=== PATIENT | female | born 1950 | race Caucasian/White ===

== ENCOUNTER → 2018-10-13 14:23 | Outpatient (CLI) | payer MEDICARE, OTHER, SELFPAY ==
--- NOTE | 2018-10-13 | DI.MG.S_ITS ---
BILATERAL DIGITAL SCREENING MAMMOGRAM 3D/2D WITH CAD: 10/13/2018 CLINICAL: Routine screening. Family history of breast cancer. Comparison is made to exams dated: 09/18/2016 mammogram, 08/23/2015 mammogram, and 08/07/2014 mammogram - [facility]. The tissue of both breasts is heterogeneously dense. This may lower the sensitivity of mammography. Current study was also evaluated with a Computer Aided Detection (CAD) system. No significant masses, calcifications, or other findings are seen in either breast. There has been no significant interval change. IMPRESSION: NEGATIVE There is no mammographic evidence of malignancy. A 1 year screening mammogram is recommended. This exam was interpreted at Station ID: [id number]. NOTE: For mammograms, a report in lay terms will be sent to the patient. Approximately 15% of breast malignancies will not be visualized mammographically. In the management of a palpable breast mass, a negative mammogram must not discourage biopsy of a clinically suspicious lesion. Electronically Signed By: David rios/jose:10/13/2018 16:00:54 letter sent: Normal Exam ACR BI-RADS Category 1: Negative 3341F
== END ==
PROVIDERS: PCP Family Medicine; Visit Provider Family Medicine
DX: Z12.31 Encounter for screening mammogram for malignant neoplasm of breast (principal); Z80.3 Family history of malignant neoplasm of breast
CPT/HCPCS: 77063; 77067

== ENCOUNTER → 2018-11-09 11:28 | Outpatient (CLI) | payer MEDICARE, OTHER, SELFPAY ==
[2018-11-09 12:13] LABS: Add Manual Diff / Slide Review NO; Basophils Percent Auto 0.7 % (0-2); Hematocrit 37.8 % (36-46); Hemoglobin 12.4 g/dL (12.0-16.0); Lymphocytes Percent Auto 8.8 % (25-40); Mean Corpuscular HGB Conc 32.8 % (30-36); Mean Corpuscular Hemoglobin 31.5 PG (26-34); Mean Corpuscular Volume 96.1 fL (80-100); Monocytes Percent Auto 14.2 % (3-14); Neutrophils Absolute Auto 2900 /uL (1500-7000); Neutrophils Percent Auto 72.3 % (50-75); Platelet Count 227 X10^3/uL (150-400); Red Blood Cell Count 3.93 X10^6/uL (4.0-5.2)
[2018-11-09 12:22] LABS: Alanine Aminotransferase 26 IU/L (9-52); Albumin 4.7 g/dL (3.5-5.0); Albumin Globulin Ratio 1.7 (1.0-2.8); Alkaline Phosphatase 80 U/L (38-126); Aspartate Aminotransferase 31 IU/L (14-36); BUN Creatinine Ratio 15.8 (6-22); Bilirubin Total 0.3 mg/dL (0.2-1.3); Blood Urea Nitrogen 19 mg/dL (7-17); Calcium 9.9 mg/dL (8.4-10.2); Carbon Dioxide 25 mmol/L (22-32); Chloride 102 mmol/L (98-107); Cholesterol 199 mg/dL (140-199); Estimated Glomerular Filt Rate 44.7 mL/min (>60); Globulin 2.8 g/dL (1.7-4.1); Glucose 91 mg/dL (80-110); HDL Cholesterol 66 mg/dL (40-60); HEMOLYSIS < 15 (0-50); LDL Cholesterol Calculated 120 mg/dL (<100); Potassium 4.7 mmol/L (3.4-5.1); Sodium 138 mmol/L (137-145); Total Protein 7.5 g/dL (6.3-8.2); Triglycerides 64 mg/dL (35-150)
[2018-11-09 12:55] LABS: Thyroid Stimulating Hormone 0.11 uIU/mL (0.47-4.68)
[2018-11-11 16:51] LABS: Hep C Virus Ab w/Reflex Quant NEGATIVE s/c (NEGATIVE)
== END ==
PROVIDERS: PCP Family Medicine; Visit Provider Family Medicine
DX: G35 Multiple sclerosis (principal); E87.1 Hypo-osmolality and hyponatremia; Z11.59 Encounter for screening for other viral diseases; E78.5 Hyperlipidemia, unspecified; E07.9 Disorder of thyroid, unspecified
CPT/HCPCS: 36415; 80053; 80061; 84443; 85025; 86803

== ENCOUNTER → 2019-11-08 10:52 | Outpatient (CLI) | payer MEDICARE, OTHER, SELFPAY ==
--- NOTE | 2019-11-08 | DI.MG.S_ITS ---
BILATERAL DIGITAL SCREENING MAMMOGRAM 3D/2D WITH CAD: 11/08/2019 CLINICAL: Routine screening. Family history of breast cancer. Comparison is made to exams dated: 10/13/2018 mammogram, 09/18/2016 mammogram, and 08/23/2015 mammogram - [facility]. The tissue of both breasts is heterogeneously dense. This may lower the sensitivity of mammography. Current study was also evaluated with a Computer Aided Detection (CAD) system. No significant masses, calcifications, or other findings are seen in either breast. There has been no significant interval change. IMPRESSION: NEGATIVE There is no mammographic evidence of malignancy. A 1 year screening mammogram is recommended. This exam was interpreted at Station ID: [id number]. NOTE: For mammograms, a report in lay terms will be sent to the patient. Approximately 15% of breast malignancies will not be visualized mammographically. In the management of a palpable breast mass, a negative mammogram must not discourage biopsy of a clinically suspicious lesion. Electronically Signed By: Balwinder akins/jose:11/08/2019 19:41:36 letter sent: Normal Exam ACR BI-RADS Category 1: Negative 3341F
== END ==
PROVIDERS: PCP Student in an Organized Health Care Education/Training Program; Visit Provider Student in an Organized Health Care Education/Training Program
DX: Z12.31 Encounter for screening mammogram for malignant neoplasm of breast (principal); Z80.3 Family history of malignant neoplasm of breast
CPT/HCPCS: 77063; 77067

== ENCOUNTER → 2019-11-29 10:59 | Outpatient (CLI) | payer MEDICARE, OTHER, SELFPAY ==
[2019-11-29 11:50] LABS: Add Manual Diff / Slide Review NO; Basophils Absolute Auto 0 /uL (0-100); Basophils Percent Auto 0.7 % (0-2); Eosinophils Absolute Auto 100 /uL (0-450); Eosinophils Percent Auto 2.6 % (2-4); Hematocrit 38.1 % (36-46); Hemoglobin 12.6 g/dL (12.0-16.0); Lymphocytes Absolute Auto 400 /uL (1100-4500); Lymphocytes Percent Auto 9.5 % (25-40); Mean Corpuscular Hemoglobin 31.6 PG (26-34); Mean Corpuscular Volume 95.7 fL (80-100); Monocytes Absolute Auto 700 /uL (0-900); Monocytes Percent Auto 15.7 % (3-14); Neutrophils Absolute Auto 3100 /uL (1500-7000); Neutrophils Percent Auto 71.5 % (50-75); Platelet Count 238 X10^3/uL (150-400); Red Blood Cell Count 3.98 X10^6/uL (4.0-5.2); Red Cell Distribution Width 13.5 % (11.6-14.8); White Blood Cell Count 4.3 X10^3/uL (4.5-11.0)
[2019-11-29 12:27] LABS: Blood Urea Nitrogen 19 mg/dL (7-17); Calcium 9.8 mg/dL (8.4-10.2); Carbon Dioxide 26 mmol/L (22-32); Chloride 95 mmol/L (98-107); Cholesterol 176 mg/dL (140-199); Glucose 103 mg/dL (80-110); HDL Cholesterol 56 mg/dL (40-60); LDL Cholesterol Calculated 103 mg/dL (<100); Sodium 130 mmol/L (137-145); Triglycerides 87 mg/dL (35-150)
[2019-11-29 12:30] LABS: HEMOLYSIS 155 (0-50); Potassium 5.9 mmol/L (3.4-5.1)
[2019-11-29 12:31] LABS: Hemoglobin A1C% w Est Avg Glu 5.4 % (4.0-6.0)
[2019-11-29 13:00] LABS: Thyroid Stimulating Hormone 0.21 uIU/mL (0.47-4.68)
== END ==
PROVIDERS: Visit Provider Student in an Organized Health Care Education/Training Program
DX: E78.5 Hyperlipidemia, unspecified (principal); E07.9 Disorder of thyroid, unspecified; Z00.00 Encounter for general adult medical examination without abnormal findings
CPT/HCPCS: 36415; 80048; 80061; 83036; 84443; 85025

== ENCOUNTER 2020-04-02 11:58 | Emergency (ER) | payer MEDICARE, OTHER, SELFPAY ==
[2020-04-02 12:01] VITALS: BP 162/71; PULSE 70; RESP 14; TEMP 37; O2SAT 98
--- NOTE | 2020-04-02 12:09 | DI.RAD.S_ITS ---
PROCEDURE: XR CHEST 1V INDICATIONS: chest pain TECHNIQUE: One view of the chest was acquired. COMPARISON: [facility], , CHEST 1VW (PORTABLE), 05/14/2015, 11:03. FINDINGS: Surgical changes and devices: None. Lungs and pleura: Lungs are clear. No pleural effusions or pneumothorax. Mediastinum: Mediastinal contours appear normal. Heart size is normal. Bones and chest wall: No suspicious bony lesions. Overlying soft tissues appear unremarkable. IMPRESSION: No acute cardiopulmonary disease process. Dictated by: Marina Aburto MD, PhD on 04/02/2020 at 13:00 Approved by: Marina Aburto MD, PhD on 04/02/2020 at 13:00
[2020-04-02 12:17] VITALS: BP 162/71; PULSE 70; RESP 12; TEMP 36.7; O2SAT 98
--- NOTE | 2020-04-02 12:22 | ED.CHESTPAIN ---
HPI - Chest Pain General Chief Complaint: Chest Pain Stated Complaint: CHEST PAIN Time Seen by Provider: 04/02/20 12:00 Source: patient Mode of arrival: Ambulatory Limitations: no limitations History of Present Illness HPI narrative: 70-year-old female nonsmoker with history of hypertension and hyperlipidemia presents with about a week of epigastric pain that is worse with eating and laying flat. She does admit to some fatigue but denies any significant shortness of breath. She has no nausea, vomiting or diarrhea. She denies any unexplained diaphoresis. She denies any exertional symptoms such as worsening of pressure, heaviness or shortness of breath with exertion. She denies any radiation of her discomfort nor any history of the same. She has had no recent travel, exposure to persons under suspicion for covered nor history of cancer or blood clots MD complaint: chest pain Onset (ago): day(s) Duration: constant Onset: during rest Pain location: epigastric Severity: moderate Quality: aching Pain radiation: none Relieving factors: nothing Exacerbating factors: eating and palpation Associated symptoms: nausea Related Data On Oral Contraceptives: No Home Medications Medication Instructions Recorded Confirmed BUPROPION HCL (WELLBUTRIN XL) 300 mg PO QDAY #0 05/20/13 Multimineral/Multivitamin 1 tab PO QDAY #0 05/20/13 (THERAGRAN M ) atorvastatin [Lipitor] 10 mg PO HS #0 05/20/13 calcium carbonate-vitamin D3 500 mg PO AMCC #0 05/20/13 [Oyster Shell Calcium-Vit D3] cetirizine 10 mg PO PRN #0 05/20/13 estradiol [Estrace] 1 mg PO QDAY #0 05/20/13 fingolimod [Gilenya] 0.5 mg PO QDAY #0 05/20/13 lisinopril 10 mg PO QDAY #0 05/20/13 melatonin 6 mg PO HS #0 05/20/13 oxybutynin chloride [Ditropan XL] 5 mg PO QDAY #0 05/20/13 zolpidem 5 mg PO HSP #0 05/20/13 Allergies Allergy/AdvReac Type Severity Reaction Status Date / Time CODEINE Allergy Unknown SEVERE N/V Uncoded 02/10/18 13:08 Review of Systems Constitutional Constitutional: Denies chills, Denies fatigue, Denies fever(s), Denies frequent falls, Denies lethargy and Denies weakness Eyes Eyes: Denies change in vision, Denies eye discharge, Denies irritation and Denies loss of vision ENT Ears, Nose, Mouth, and Throat: Denies change in voice, Denies dizziness, Denies neck pain, Denies sore throat and Denies throat swelling Cardiovascular Cardiovascular: Reports chest pain, Denies irregular heart rhythm, Denies lightheadedness, Denies palpitations, Denies dyspnea, Denies dyspnea on exertion and Denies orthopnea Respiratory Respiratory: Denies cough, Denies dyspnea, Denies dyspnea on exertion and Denies wheezing Gastrointestinal Gastrointestinal: Denies abdominal pain, Denies change in bowel habits, Denies diarrhea, Denies nausea and Denies vomiting Genitourinary Genitourinary: Denies hematuria, Denies flank pain, Denies urinary incontinence and Denies urinary urgency Musculoskeletal Musculoskeletal: Denies back pain, Denies muscle weakness, Denies neck pain, Denies numbness and Denies tingling Integumentary/Breasts Skin/Breast: Denies pruritus, Denies erythema, Denies rash and Denies wounds Neurologic Neurologic: Denies behavioral changes, Denies confusion, Denies dizziness, Denies frequent falls, Denies loss of vision, Denies numbness, Denies tingling and Denies weakness Psychiatric Psychiatric: Denies anxiety, Denies behavioral changes, Denies confusion, Denies depression, Denies homicidal ideation and Denies suicidal ideation Endocrine Endocrine: Denies fatigue, Denies flushing and Denies palpitations Hematologic/Lymphatic Hematologic/Lymphatic: Denies easy bruising Allergic/Immunologic Allergic/Immunologic: Denies urticaria, Denies throat swelling and Denies wheezing Patient History Social History Smoking Status: Never smoker Exam Narrative Exam Narrative: GENERAL: [70] year old patient appears stated age. Well-nourished, well-developed patient, in mild distress. HEAD: Atraumatic. Normocephalic. EYES: Pupils equal round and reactive. Extraocular motions intact. No scleral icterus. No injection or drainage. ENT: Nose without bleeding, purulent drainage. Throat without erythema, tonsillar hypertrophy or exudate. Airway patent. NECK: Trachea midline. Non tender CARDIOVASCULAR: Regular rate and rhythm without murmurs, gallops, or rubs. RESPIRATORY: Clear to auscultation. Breath sounds equal bilaterally. No wheezes, rales, or rhonchi. GASTROINTESTINAL: Abdomen soft, mild epigastric discomfort to palpation, nondistended. EXTREMITIES: No edema or joint tenderness. BACK: Nontender without deformity or crepitance. No flank tenderness. NEURO: AOx3. SKIN: No rash or erythema of visible areas Initial Vital Signs Initial Vital Signs: Vital Signs Temperature 98.6 F 04/02/20 12:01 Pulse Rate 70 04/02/20 12:01 Respiratory Rate 14 04/02/20 12:01 Blood Pressure 162/71 H 04/02/20 12:01 Pulse Oximetry 98 04/02/20 12:01 Scores HEART Score Heart Score history: Slightly Suspicious Heart Score EKG: Normal Heart Score Age: > or = 65 years old Heart Score risk factors: 1-2 risk factors Heart Score troponin: < or = to normal limit Heart Score Total: 3 Course Orders Ordered: Discontinued Medications Aspirin (Aspirin Chew) 324 mg PO NOW ONE Stop: 04/02/20 12:10 Last Admin: 04/02/20 12:37 Dose: 324 mg Documented by: DIANA Sodium Chloride (Normal Saline 0.9%) 1,000 mls @ 150 mls/hr IV CONT DARCY Last Infusion: 04/02/20 14:41 Dose: 0 mls/hr Documented by: Admin: 04/02/20 12:36 Dose: 150 mls/hr Documented by: DIANA Consultations Consultation #1: discussion with verification lead provider for PCP. We share agreement that given presentation, timing, lack of abnormal EKG/labs this is not likely to need admission for cardiac workup but close follow up is indicated. Vital Signs Vital signs: Vital Signs - 8 hr 04/02/20 12:01 04/02/20 12:17 Temperature 98.6 F 98.1 F Pulse Rate 70 70 Respiratory Rate 14 12 Blood Pressure 162/71 H Blood Pressure [Left Arm] 162/71 H Pulse Oximetry 98 98 MDM - Chest Pain Lab Data Result diagrams: 04/02/20 12:26 04/02/20 12:26 Labs: Lab Results 04/02/20 04/02/20 04/02/20 Range/Units 12:26 12:26 12:26 WBC 4.4 L (4.5-11.0) X10^3/uL RBC 3.66 L (4.0-5.2) X10^6/uL Hgb 11.8 L (12.0-16.0) g/dL Hct 34.6 L (36-46) % MCV 94.5 (80-100) fL MCH 32.3 (26-34) PG MCHC 34.2 (30-36) % RDW 13.2 (11.6-14.8) % Plt Count 272 (150-400) X10^3/uL Neut % (Auto) 69.8 (50-75) % Lymph % (Auto) 8.8 L (25-40) % [place] % (Auto) 17.8 H (3-14) % Eos % (Auto) 3.3 (2-4) % Baso % (Auto) 0.3 (0-2) % Neut # (Auto) 3000 (8474-8523) /uL Lymph # (Auto) 400 L (4844-0930) /uL [place] # (Auto) 800 (0-900) /uL Eos # (Auto) 100 (0-450) /uL Baso # (Auto) 0 (0-100) /uL PT 11.4 (10.1-12.7) SECONDS INR 1.0 (0.9-1.3) APTT 33 (26.4-36.2) SECONDS D-Dimer < 200 (<230) ng/mL Sodium 128 L (137-145) mmol/L Potassium 4.5 (3.4-5.1) mmol/L Chloride 95 L (98-107) mmol/L Carbon Dioxide 23 (22-32) mmol/L BUN 22 H (7-17) mg/dL Creatinine 1.14 H (0.52-1.04) mg/dL Estimated GFR 47.1 L (>60) mL/min BUN/Creatinine Ratio 19.3 (6-22) Glucose 98 (80-110) mg/dL Calcium 10.1 (8.4-10.2) mg/dL Total Bilirubin 0.3 (0.2-1.3) mg/dL AST 32 (14-36) IU/L ALT 21 (<35) IU/L Alkaline Phosphatase 78 (38-126) U/L Total Creatine Kinase 108 (30-135) U/L CK-MB (CK-2) 2.36 (<2.37) ng/mL CK-MB (CK-2) Rel Index 2.2 (1.5-5.0) % Troponin I < 0.012 (0.01-0.034) ng/mL NT-Pro-B Natriuret Pep 369 H (<125) pg/mL Total Protein 7.1 (6.3-8.2) g/dL Albumin 4.5 (3.5-5.0) g/dL Globulin 2.6 (1.7-4.1) g/dL Albumin/Globulin Ratio 1.7 (1.0-2.8) Lipase 44 (23-300) U/L MDM Narrative Medical decision making narrative: Multiple causes of chest pain considered including [place], PE, pneumothorax, pneumonia, aortic dissection, and pleurisy. Patient reports no radiation, no diaphoresis, no provocation with exertion, and no vomiting. Or also, a pain much worse with eating and with lying flat raising the suspicion of a gastro during intestinal problem such as gallbladder disease, pancreatitis or GERD/PUD Patient's symptoms improved or duration of stay with above-stated therapies. Findings and discharge diagnosis discussed with patient/family followed by verbalization of understanding Return precautions discussed with patient/family whom verbalize understanding. Discharge Plan Departure Patient Disposition: Home Clinical Impression: Atypical chest pain Discharge Date/Time: 04/02/20 14:43 Instructions: DI for Atypical Chest Pain Activity Restrictions/Additional Instructions: *You have been diagnosed with [atypical chest pain] *What to do: *Take medications as directed *Follow up with your primary care provider in 2-3 days, call for an appointment. Let them know you were seen in the Emergency Department and that we ask that you be seen in follow up *Return to ER if you should have any new, worsening or concerning symptoms Prescriptions: No Action lisinopril 10 MG tablet 10 mg PO QDAY Qty: 0 RF: 0 fingolimod [Gilenya] 0.5 MG capsule 0.5 mg PO QDAY Qty: 0 RF: 0 BUPROPION HCL (WELLBUTRIN XL) 300 mg PO QDAY Qty: 0 RF: 0 atorvastatin [Lipitor] 10 MG tablet 10 mg PO HS Qty: 0 RF: 0 estradiol [Estrace] 1 MG tablet 1 mg PO QDAY Qty: 0 RF: 0 oxybutynin chloride [Ditropan XL] 5 MG tablet extended release 24hr 5 mg PO QDAY Qty: 0 RF: 0 zolpidem 5 MG tablet 5 mg PO HSP Qty: 0 RF: 0 Multimineral/Multivitamin (THERAGRAN M ) 1 tab PO QDAY Qty: 0 RF: 0 cetirizine 10 MG tablet 10 mg PO PRN Qty: 0 RF: 0 melatonin 3 MG tablet 6 mg PO HS Qty: 0 RF: 0 calcium carbonate-vitamin D3 [Oyster Shell Calcium-Vit D3] 1,250 MG/200 IU tablet 500 mg PO AMCC Qty: 0 RF: 0
[2020-04-02] MEDS: SODIUM CHLORIDE 0.9% 1,000 ML 150 ML IV (12:36)
[2020-04-02 12:37] LABS: Add Manual Diff / Slide Review NO; Basophils Absolute Auto 0 /uL (0-100); Basophils Percent Auto 0.3 % (0-2); Eosinophils Absolute Auto 100 /uL (0-450); Eosinophils Percent Auto 3.3 % (2-4); Hematocrit 34.6 % (36-46); Hemoglobin 11.8 g/dL (12.0-16.0); Lymphocytes Absolute Auto 400 /uL (1100-4500); Lymphocytes Percent Auto 8.8 % (25-40); Mean Corpuscular HGB Conc 34.2 % (30-36); Mean Corpuscular Hemoglobin 32.3 PG (26-34); Mean Corpuscular Volume 94.5 fL (80-100); Monocytes Absolute Auto 800 /uL (0-900); Monocytes Percent Auto 17.8 % (3-14); Neutrophils Absolute Auto 3000 /uL (1500-7000); Neutrophils Percent Auto 69.8 % (50-75); Platelet Count 272 X10^3/uL (150-400); Red Blood Cell Count 3.66 X10^6/uL (4.0-5.2); Red Cell Distribution Width 13.2 % (11.6-14.8); White Blood Cell Count 4.4 X10^3/uL (4.5-11.0)
[2020-04-02] MEDS: ASPIRIN 81 MG CHEW TAB 324 MG PO (12:37)
[2020-04-02 12:44] LABS: Prothrombin Time 11.4 SECONDS (10.1-12.7)
[2020-04-02 12:46] LABS: PTT Partial Thromboplastin Tim 33 SECONDS (26.4-36.2)
[2020-04-02 12:47] LABS: D Dimer < 200 ng/mL (<230)
[2020-04-02 12:48] LABS: Alanine Aminotransferase 21 IU/L (<35); Albumin 4.5 g/dL (3.5-5.0); Albumin Globulin Ratio 1.7 (1.0-2.8); Alkaline Phosphatase 78 U/L (38-126); Aspartate Aminotransferase 32 IU/L (14-36); BUN Creatinine Ratio 19.3 (6-22); Bilirubin Total 0.3 mg/dL (0.2-1.3); Blood Urea Nitrogen 22 mg/dL (7-17); Calcium 10.1 mg/dL (8.4-10.2); Carbon Dioxide 23 mmol/L (22-32); Chloride 95 mmol/L (98-107); Creatine Kinase 108 U/L (30-135); Estimated Glomerular Filt Rate 47.1 mL/min (>60); Globulin 2.6 g/dL (1.7-4.1); Glucose 98 mg/dL (80-110); HEMOLYSIS < 15 (0-50); Lipase 44 U/L (23-300); Potassium 4.5 mmol/L (3.4-5.1); Sodium 128 mmol/L (137-145); Total Protein 7.1 g/dL (6.3-8.2)
[2020-04-02 13:00] LABS: Troponin I < 0.012 ng/mL (0.01-0.034)
[2020-04-02 13:03] LABS: CKMB % Relative Index 2.2 % (1.5-5.0); Creatine Kinase MB 2.36 ng/mL (<2.37)
[2020-04-02 13:13] LABS: NT-proBNP (BNP-Adult 18+) 369 pg/mL (<125)
--- NOTE | 2020-04-02 13:16 | DI.US.S_ITS ---
PROCEDURE: US ABDOMEN LIMITED INDICATIONS: POST PRANDIAL EPIGASTRIC PAIN TECHNIQUE: Real-time focused scanning was performed of the abdomen, with image documentation. COMPARISON: None. FINDINGS: The liver is normal in size. No focal liver lesions are identified on the provided images. The background echogenicity of the liver may be slightly increased when compared to the right kidney. Imaged portions of the right kidney are within normal limits. There is no intrahepatic or extrahepatic biliary dilatation. The common bile duct measures 5 mm in diameter, which is within normal limits. The gallbladder is also noted to be within normal limits without gallbladder wall thickening or pericholecystic fluid. There is no cholelithiasis. IMPRESSION: No cholelithiasis or evidence to suggest acute cholecystitis. Dictated by: Satish Venegas M.D. on 04/02/2020 at 12:50 Approved by: Satish Venegas M.D. on 04/02/2020 at 12:51
[2020-04-02 14:25] VITALS: BP 171/72; PULSE 63; RESP 16
[2020-04-02 14:42] VITALS: BP 169/68; PULSE 62; RESP 18; O2SAT 99
== END 2020-04-02 14:43 | disposition home or self-care (01) ==
PROVIDERS: Emergency Provider Emergency Medicine
DX: R07.89 Other chest pain (principal); R10.13 Epigastric pain; I10 Essential (primary) hypertension; E78.5 Hyperlipidemia, unspecified
CPT/HCPCS: 36415; 71045; 76705; 80053; 82550; 82553; 83690; 83880; 84484; 85025; 85379; 85610; 85730; 93005; 93010; 96360; 96361; 99284; 99285

== ENCOUNTER → 2020-11-22 10:01 | Outpatient (CLI) | payer MEDICARE, OTHER, SELFPAY ==
--- NOTE | 2020-11-22 | DI.MG.S_ITS ---
BILATERAL DIGITAL SCREENING MAMMOGRAM 3D/2D WITH CAD: 11/22/2020 CLINICAL: Routine screening. Family history of breast cancer. Comparison is made to exams dated: 11/08/2019 mammogram, 10/13/2018 mammogram, and 09/18/2016 mammogram - [facility]. The tissue of both breasts is heterogeneously dense. This may lower the sensitivity of mammography. Current study was also evaluated with a Computer Aided Detection (CAD) system. No significant masses, calcifications, or other findings are seen in either breast. There has been no significant interval change. IMPRESSION: NEGATIVE There is no mammographic evidence of malignancy. A 1 year screening mammogram is recommended. This exam was interpreted at Station ID: [id number]. NOTE: For mammograms, a report in lay terms will be sent to the patient. Approximately 15% of breast malignancies will not be visualized mammographically. In the management of a palpable breast mass, a negative mammogram must not discourage biopsy of a clinically suspicious lesion. Electronically Signed By: Jeremy christian/jose:11/22/2020 10:26:02 letter sent: Normal Exam ACR BI-RADS Category 1: Negative 3341F
== END ==
PROVIDERS: PCP Student in an Organized Health Care Education/Training Program; Referring Provider Student in an Organized Health Care Education/Training Program; Visit Provider Student in an Organized Health Care Education/Training Program
DX: Z12.31 Encounter for screening mammogram for malignant neoplasm of breast (principal)
CPT/HCPCS: 77063; 77067

== ENCOUNTER → 2020-12-04 10:08 | Outpatient (CLI) | payer MEDICARE, OTHER, SELFPAY ==
[2020-12-04 10:59] LABS: Add Manual Diff / Slide Review NO; Basophils Absolute Auto 0 /uL (0-100); Basophils Percent Auto 0.8 % (0-2); Eosinophils Absolute Auto 100 /uL (0-450); Eosinophils Percent Auto 2.9 % (2-4); Hematocrit 33.9 % (36-46); Hemoglobin 11.2 g/dL (12.0-16.0); Lymphocytes Absolute Auto 800 /uL (1100-4500); Lymphocytes Percent Auto 17.2 % (25-40); Mean Corpuscular HGB Conc 32.9 % (30-36); Mean Corpuscular Hemoglobin 31.8 PG (26-34); Mean Corpuscular Volume 96.5 fL (80-100); Monocytes Absolute Auto 600 /uL (0-900); Monocytes Percent Auto 11.9 % (3-14); Neutrophils Absolute Auto 3100 /uL (1500-7000); Neutrophils Percent Auto 67.2 % (50-75); Platelet Count 247 X10^3/uL (150-400); Red Blood Cell Count 3.51 X10^6/uL (4.0-5.2); Red Cell Distribution Width 13.3 % (11.6-14.8); White Blood Cell Count 4.7 X10^3/uL (4.5-11.0)
[2020-12-04 11:07] LABS: Alanine Aminotransferase 34 IU/L (<35); Albumin Globulin Ratio 1.8 (1.0-2.8); Alkaline Phosphatase 74 U/L (38-126); Aspartate Aminotransferase 44 IU/L (14-36); Bilirubin Total 0.2 mg/dL (0.2-1.3); Blood Urea Nitrogen 16 mg/dL (7-17); Calcium 9.5 mg/dL (8.4-10.2); Carbon Dioxide 31 mmol/L (22-32); Chloride 96 mmol/L (98-107); Estimated Glomerular Filt Rate 54.8 mL/min (>60); Globulin 2.2 g/dL (1.7-4.1); Glucose 95 mg/dL (80-110); HEMOLYSIS < 15 (0-50); Potassium 4.7 mmol/L (3.4-5.1); Sodium 129 mmol/L (137-145); Total Protein 6.2 g/dL (6.3-8.2)
== END ==
PROVIDERS: PCP Student in an Organized Health Care Education/Training Program; Referring Provider Psychiatry & Neurology Neurology; Visit Provider Psychiatry & Neurology Neurology
DX: G35 Multiple sclerosis (principal)
CPT/HCPCS: 36415; 80053; 85025

== ENCOUNTER → 2020-12-19 09:46 | Outpatient (CLI) | payer MEDICARE, OTHER, SELFPAY ==
[2020-12-19 10:44] LABS: Add Manual Diff / Slide Review NO; Basophils Absolute Auto 0 /uL (0-100); Basophils Percent Auto 0.6 % (0-2); Eosinophils Absolute Auto 200 /uL (0-450); Eosinophils Percent Auto 2.3 % (2-4); Hematocrit 35.5 % (36-46); Hemoglobin 11.7 g/dL (12.0-16.0); Lymphocytes Absolute Auto 800 /uL (1100-4500); Lymphocytes Percent Auto 11.3 % (25-40); Mean Corpuscular HGB Conc 33.1 % (30-36); Mean Corpuscular Volume 96.7 fL (80-100); Monocytes Absolute Auto 800 /uL (0-900); Monocytes Percent Auto 10.9 % (3-14); Neutrophils Absolute Auto 5400 /uL (1500-7000); Neutrophils Percent Auto 74.9 % (50-75); Platelet Count 258 X10^3/uL (150-400); Red Blood Cell Count 3.67 X10^6/uL (4.0-5.2); Red Cell Distribution Width 13.5 % (11.6-14.8); White Blood Cell Count 7.2 X10^3/uL (4.5-11.0)
[2020-12-19 11:31] LABS: BUN Creatinine Ratio 16.1 (6-22); Blood Urea Nitrogen 18 mg/dL (7-17); Carbon Dioxide 27 mmol/L (22-32); Chloride 99 mmol/L (98-107); Cholesterol 205 mg/dL (140-199); Estimated Glomerular Filt Rate 48.1 mL/min (>60); Glucose 92 mg/dL (80-110); HDL Cholesterol 90 mg/dL (40-60); HEMOLYSIS < 15 (0-50); LDL Cholesterol Calculated 101 mg/dL (<100); Potassium 4.8 mmol/L (3.4-5.1); Sodium 132 mmol/L (137-145); Triglycerides 71 mg/dL (35-150)
[2020-12-19 11:56] LABS: Thyroid Stimulating Hormone 0.825 uIU/mL (0.47-4.68)
== END ==
PROVIDERS: PCP Student in an Organized Health Care Education/Training Program; Referring Provider Student in an Organized Health Care Education/Training Program; Visit Provider Student in an Organized Health Care Education/Training Program
DX: Z00.00 Encounter for general adult medical examination without abnormal findings (principal); I10 Essential (primary) hypertension; E78.5 Hyperlipidemia, unspecified
CPT/HCPCS: 36415; 80048; 80061; 84443; 85025

== ENCOUNTER → 2021-01-17 12:17 | Outpatient (CLI) | payer MEDICARE, OTHER, SELFPAY ==
[2021-01-17 12:54] LABS: Add Manual Diff / Slide Review NO; Basophils Absolute Auto 100 /uL (0-100); Eosinophils Absolute Auto 100 /uL (0-450); Eosinophils Percent Auto 1.8 % (2-4); Hematocrit 34.5 % (36-46); Hemoglobin 11.5 g/dL (12.0-16.0); Lymphocytes Absolute Auto 700 /uL (1100-4500); Lymphocytes Percent Auto 14.5 % (25-40); Mean Corpuscular HGB Conc 33.3 % (30-36); Monocytes Absolute Auto 800 /uL (0-900); Monocytes Percent Auto 16.3 % (3-14); Neutrophils Absolute Auto 3200 /uL (1500-7000); Neutrophils Percent Auto 66.4 % (50-75); Platelet Count 219 X10^3/uL (150-400); Red Cell Distribution Width 13.2 % (11.6-14.8); White Blood Cell Count 4.9 X10^3/uL (4.5-11.0)
[2021-01-17 13:13] LABS: Alanine Aminotransferase 29 IU/L (<35); Albumin 4.5 g/dL (3.5-5.0); Alkaline Phosphatase 71 U/L (38-126); Aspartate Aminotransferase 36 IU/L (14-36); BUN Creatinine Ratio 14.6 (6-22); Bilirubin Total 0.2 mg/dL (0.2-1.3); Blood Urea Nitrogen 14 mg/dL (7-17); Calcium 9.7 mg/dL (8.4-10.2); Carbon Dioxide 25 mmol/L (22-32); Chloride 94 mmol/L (98-107); Estimated Glomerular Filt Rate 57.5 mL/min (>60); Globulin 2.2 g/dL (1.7-4.1); Glucose 89 mg/dL (80-110); HEMOLYSIS < 15 (0-50); Potassium 5.1 mmol/L (3.4-5.1); Sodium 128 mmol/L (137-145); Total Protein 6.7 g/dL (6.3-8.2)
== END ==
PROVIDERS: PCP Student in an Organized Health Care Education/Training Program; Referring Provider Psychiatry & Neurology Neurology; Visit Provider Psychiatry & Neurology Neurology
DX: G35 Multiple sclerosis (principal)
CPT/HCPCS: 36415; 80053; 85025

== ENCOUNTER → 2021-05-21 10:56 | Outpatient (CLI) | payer MEDICARE, OTHER, SELFPAY ==
--- NOTE | 2021-05-21 11:00 | DI.RAD.S_ITS ---
PROCEDURE: FL BARIUM SWALLOW W SPEECH INDICATIONS: Dysphagia, unspecified COMPARISON: None. TECHNIQUE: Examination was conducted in conjunction with speech pathology per standard protocol. In the lateral projection, filming was performed of the patient swallowing. AP projection filming may also be performed with patient swallowing. COMPARISON: FINDINGS: Function: The oral preparatory phase appears normal, with proper containment. The subsequent oral propulsive phase, pharyngeal phase, and esophageal phase of swallowing also appear normal with all proffered substances. However, there was mild episodic anterior laryngotracheal penetration with slight aspiration into the anterior border of the true vocal cord region.. No pathologic vallecular pooling. Morphology: No cricopharyngeal bar is identified. No cervical esophageal webs. No Zenker's diverticulum. No strictures. IMPRESSION: There was supple episodes of anterior penetration of ingested contrast material and a small amount of this fluid could be seen at the anterior border of the true vocal cord region. Thus, slight aspiration had occurred in addition to anterior penetration. Please also refer to the dedicated speech therapy swallowing evaluation report which will be independently generated. Dictated by: Emre Garcia M.D. on 05/21/2021 at 13:48 Approved by: Emre Garcia M.D. on 05/21/2021 at 13:50
--- NOTE | 2021-05-21 16:41 | ST.SWALLOW ---
Visit Care Team Role Provider Type Rhiannon Whitaker MD Attending Provider Physician Primary Care Provider Referring Provider Specialty: Family Practice Address: [address] [place] [address], [address], [place], [address] Email: [email or web address] Modified Barium Swallow Study [employer] Modified Barium Swallow Study Start: 05/21/21 13:34 Freq: Status: Active Protocol: Document 05/21/21 13:41 LNK (Rec: 05/21/21 13:46 LNK [id number]) Modified Barium Swallow Study Total Time Visit Start Time 11:30 Visit Stop Time 12:00 Total Visit Minutes [address] Whitaker Reason for Referral difficulty with swallowing Setting Setting Outpatient Care Patient Information Identification Type Name,Date of Patient History Pt is a 71 year old female with M.S. seen for a swallowing evaluation secondary to difficulty and pain when swallowing. According to the pt she was experiencing a sense of globus , pointing to her sternal notch area that at times, radiated to her mid chest. She reported that she does not cough or choke when eating. Lately, pt reported, her swallowing feels a little better. She also reported that she has a history of GERD , for which she is not taking medication. She noted that her breakfast meal almost always results in the globus/ pain sensation. Finally, pt reported that she loses her voice completely frequently during the day. She indicated she then rests and her voice will return for a while. Subjective Observations Pt was seated in the fluoroscopy chair. Instructions provided to the pt, who indicated she understood and agreed to proceed. Patient Positioning Position View Lateral Imaging Lateral View Textures Administered Trials Presented Thin Liquid via Spoon,Thin Liquid via Cup,Pudding Thick Liquid via Spoon,Regular Textures Oral Phase Source: MBSIMP (TM) (C) Bolus Specific Scoring Grid Lip Closure No Impairment (WNL) Tongue Control During Bolus Hold WFL Bolus Prep/Mastication No Impairment (WNL) Bolus Transport/Lingual Motion Mild Impairment A/P Lingual Propulsion Delay up to 3s dependent on consistency Oral Residue Mild Impairment Residue Clearing Mild Impairment Nasal Regurgitation No Additional Oral Phase Observations OME prior to the MBSS indicated structures and function to be WFL. Diadochokineses was WNL Pharyngeal Phase Source: MBSIMP (TM) (C) Bolus Specific Scoring Grid Delayed Initiation of Pharyngeal Swallow Yes: Premature spillage to the valeculla and pyriform sinuses Soft Palate Elevation WFL Tongue Base Strength/Range of Motion Mild Impairment Residue Along the Tongue Base Yes: mild to moderate Clearance of Residue Along Tongue Base Mild Impairment Laryngeal Elevation Mild Impairment Anterior Hyoid Movement Moderate Impairment Epiglottic Range of Motion Moderate Impairment Vallecular Residue Yes Clearance of Vallecular Residue Moderate Impairment Laryngeal Vestibular Closure Moderate Impairment Pharyngeal Stripping Wave Moderate Impairment Posterior Pharyngeal Wall Residue Yes Clearance of Posterior Pharyngeal Wall Mild Impairment Residue Upper Esophageal Sphincter Opening Mild Impairment Residue in the Pyriform Sinuses Yes Clearance of Residue in the Pyriform Mild Impairment Sinuses Esophageal Clearance Upright Position Mild Impairment Pharyngoesophageal Backflow Observed No Additional Pharyngeal Phase Observations Premature spillage to the pyriform sinuses pre-swallow response was observed. Laryngeal elevation was mildly reduced; hyoid movement was minimal and there was noted weakness in base of tongue musculature. Decreased laryngopharyngeal contact, reduced stripping of the posterior pharyngeal wall and incomplete epiglottal inversion were also observed. Weak base of tongue directly impacts the epiglottal inversion. Pt's epiglottis was observed to be minimal at the start of the bolus flow, horizontal at times and inverted with a weakened laryngeal seal. Silent penetration into the laryngeal vestibule was observed x5 with liquid amounts varying from teaspoon-sized to consecutive swallows of contrast. Further, silent aspiration below the vocal folds was observed for a small amount of contrast. This resulted from residue along the anterior wall of the thyroid lamina, slowly moving through the vocal folds. Reduced posterior pharyngeal wall movement resulted in less bolus control as the bolus flowed from the oral cavity to the UES. Additionally several osteophytes were noted , with altered bolus flow around the osteophytes but no impedement of the flow. Pharyngeal pooling was observed in the valeculla, pyriform sinuses, posterior pharyngeal wall, base of tongue and larynx. With increased viscosity of the bolus material, there was greater pharyngeal residue observed and increased difficulty with clearing the residue, even after several cued swallows and some H2O. A/P View Clinical Impressions Dysphagia Type Pharyngeal phase dysphagia Findings Pt presents with a moderate pharyngeal dysphagia with silent penetration and slight aspiration of contrast. For the swallows where contrast penetration was observed, the pt did cough but not a strong cough. Given the pt's diagnosis of MS, she is at a higher risk for aspiration. Dysphagia therapy is recommended to target base of tongue exercises and begin to implement safe swallow strategies. Aspiration precautions as well as the risk for aspiration going forward should be discussed as well. This MBSS serves as a good baseline of pt's swallow function. Rehabilitation Potential Excellent Patient Appropriate for Therapy Yes Recommendations Diet Liquids Order Thin Diet Order Regular Medication Recommendation As Tolerated Comments No change in diet recommended Treatment Plan Therapy Recommendations Outpatient Speech Therapy Additional Therapy Recommendations Referral to GI to rule out esophageal dysmotility, esophageal dysfunction Recommended Referrals GI Consult,ENT Consult Additional Compensatory Strategies When drinking, take 1 sip at a Recommended time. Do not swallow consecutively
== END ==
PROVIDERS: PCP Student in an Organized Health Care Education/Training Program; Referring Provider Student in an Organized Health Care Education/Training Program; Visit Provider Student in an Organized Health Care Education/Training Program
DX: R13.10 Dysphagia, unspecified (principal)
CPT/HCPCS: 74230; 92611

== ENCOUNTER 2021-06-11 09:30 | Outpatient (RCR) | payer MEDICARE, OTHER, SELFPAY ==
--- NOTE | 2021-06-06 15:14 | ST.OPIE ---
Visit Care Team Role Provider Type Rhiannon Whitaker MD Attending Provider Physician Primary Care Provider Referring Provider Specialty: Family Practice Address: [address] [place] [address], [facility], [place], [address] Email: [email or web address] Speech-Language Pathology Initial Evaluation HOME CARE MANAGER Clinical Swallow Evaluation Start: 06/06/21 14:49 Freq: Status: Active Protocol: Document 06/06/21 14:49 LNK (Rec: 06/06/21 15:13 LNK [id number]) Clinical Swallow Evaluation Session Time Visit Start Time 10:30 Visit Stop Time 11:30 Total Visit Minutes 60 Visit Information Visit Number 1 Plan of Care Dates 06/06/21/-09/06/[address] Whitaker Reason for Referral dysphagia Setting Assessment Location Outpatient Care Visit Type Note Type Initial evaluation Next Note Type Next Note Type Treatment Note Patient Information Identification Type Name,Date of History Pt is a 71 year old female with M.S. seen for secondary to difficulty and pain when swallowing. According to the pt she was experiencing a sense of globus, pointing to her sternal notch area that at times, radiated to her mid chest. She reported that she does not cough or choke when eating. A recent MBS indicated a moderate pharyngeal dysphagia with silent penetration and slight aspiration of contrast. For the swallows where contrast penetration was observed, the pt did cough but not a strong cough. Given the pt's diagnosis of MS, she is at a higher risk for aspiration. Dysphagia therapy was recommended to target base of tongue exercises and begin to implement safe swallow strategies. Aspiration precautions as well as the risk for aspiration going forward will be discussed as well. This MBSS served as a good baseline of pt's swallow function. [ End ] Reported by Patient Other Symptoms Coughing,Food gets stuck Current Diet Regular,Thin liquids Baseline Feeding Method Independent in self-feeding Objective Assessment Mental Status Alert,Responsive,Cooperative Oral Integrity WFL Dentition Within normal limits Lip Function Within normal limits Observation of Lips at Rest Symmetrical Pucker Within normal limits Lip Retraction Within normal limits Tongue Function Within normal limits Tongue Protrusion Within normal limits Tongue Lateralization Within normal limits Jaw Function Within normal limits Hard/Soft Palate Function Within normal limits Comment Oral structures and strength WFL Food and Liquid Trials Results No PO trials were provided this appointment. The recent MBSS was reviewed with the pt following a computer graphic demonstration of a normal swallow. As the pt watched the video of her MBSS, examples of her hyolaryngeal elevation and movement, instances of laryngeal penetration, weak epiglottic inversion and and overall current status of her swallow were described and discussed. Her results were compared to the computer graphic swallow. Linguapharyngeal exercises were described for the pt with demonstration and pt practice . Written instructions were also given to the pt for reference. Safe swallow strategies such as single sips of liquids, mindful eating/ drinking, limit distractions during meal, etc. were also described and discussed. Findings Swallowing Function Pharyngeal phase dysphagia Contributing Factors to Swallow Reduced oral strength/ Impairment coordination/sensation, Impaired oral-pharyngeal transport,Delayed swallow initiation,Reduced laryngeal excursion,Impaired airway protection Prognosis Good Based on Cognitive status,Comorbidities Impact on Safety and Functioning Risk for aspiration Recommendations Instrumental Assessment No Swallowing Treatment Yes Frequency 1 follow up visit next week; additional therapy every 2-3 weeks for 3 months Recommended Solids Regular Recommended Liquids Thin Safety Precautions/Swallowing Reduce distractions,Small Recommendations bites and sips when eating, Slow rate; swallow between bites Medication Recommendations As Tolerated Education Patient/Caregiver Education Described results of evaluation,Patient expressed understanding of evaluation, Patient expressed agreement with goals & treatment plans, Patient expressed understanding of safety precautions,Patient expressed understanding of feeding recommendations Goals Short-term Goals 1) Pt will demonstrate mastery of exercise program as prescribed. 2) Pt will report a reduction in coughing episodes while eating/drinking .3) pt will demonstrate overall improvement on repeat MBSS in 3+ months.
--- NOTE | 2021-06-06 15:16 | ST.OPPOC ---
Physical, Occupational & Speech Therapy At [facility] Visit Care Team Role Provider Type Rhiannon Whitaker MD Attending Provider Physician Primary Care Provider Referring Provider Address: [address] [place] [address], [place], [address] Speech Pathology Plan of Care Plan of Care Dates 06/06/21/-09/06/21 Patient History Pt is a 71 year old female with M.S. seen for secondary to difficulty and pain when swallowing . According to the pt she was experiencing a sense of globus, pointing to her sternal notch area that at times, radiated to her mid chest. She reported that she does not cough or choke when eating. A recent MBS indicated a moderate pharyngeal dysphagia with silent penetration and slight aspiration of contrast. For the swallows where contrast penetration was observed, the pt did cough but not a strong cough. Given the pt 's diagnosis of MS, she is at a higher risk for aspiration. Dysphagia therapy was recommended to target base of tongue exercises and begin to implement safe swallow strategies. Aspiration precautions as well as the risk for aspiration going forward will be discussed as well. This MBSS served as a good baseline of pt's swallow function. [ End ] Electronically Signed by: BAKARI Gomez 06/06/21 9122 Please Sign and Return: I have reviewed this Plan of Care and certify that the skilled therapy services above are required to meet the patient?s needs. Physician Signature Date Printed Name and Credentials Clinical Instructor Signature Printed Name and Credentials
--- NOTE | 2021-07-02 14:17 | ST.IPDYTX ---
Visit Care Team Role Provider Type Rhiannon Whitaker MD Attending Provider Physician Primary Care Provider Referring Provider Specialty: Family Practice Address: [address] [place] [address] [place], [address] Email: [email or web address] SOLIDS CONTROL TECHNICIAN Dysphagia Treatment SOLIDS CONTROL TECHNICIAN Dysphagia Treatment Start: 06/06/21 14:33 Freq: Status: Active Protocol: Document 07/02/21 14:13 LNK (Rec: 07/02/21 14:16 LNK [id number]) Dysphagia Treatment Setting Assessment Location Outpatient Care Visit Type Note Type Discharge Summary Patient Information Subjective Observations Pt had questions re: treatment plan which were answered to her satisfaction. pt noted that her mouth is very dry and the exercises were difficult b/c of that. Diet Recommendations Medication Recommendations As Tolerated Aspiration Precautions Recommended Precautions Upright at 90 Degrees, Alternate Liquids/Solids, Effortful Swallow Treatment Plan Appropriate for Continued Therapy No Therapy Recommendations Pt called the rehab office stating reporting that she the exercises sporadically, but then started taking Prilosec and it has helped enormously. She will be seeing environmental remediation specialist and ENT, as well as her physician. She requested that we cancel visit and discharge account at this time. Follow Up Plan Discharge from therapy at pt's request
== END 2021-07-17 13:11 | disposition home or self-care (01) ==
LOC: SP 09:30
PROVIDERS: PCP Student in an Organized Health Care Education/Training Program; Referring Provider Student in an Organized Health Care Education/Training Program; Visit Provider Student in an Organized Health Care Education/Training Program
DX: R13.10 Dysphagia, unspecified (principal)
CPT/HCPCS: 92526; 92610

== ENCOUNTER → 2021-09-16 13:41 | Outpatient (CLI) | payer MEDICARE, OTHER, SELFPAY ==
[2021-09-16 17:48] LABS: COVID19 -Nasal RAPID Negative (Negative)
== END ==
PROVIDERS: PCP Student in an Organized Health Care Education/Training Program; Referring Provider Physician Assistant; Visit Provider Physician Assistant
DX: Z20.822 Contact with and (suspected) exposure to COVID-19 (principal)
CPT/HCPCS: 87635

== ENCOUNTER 2021-09-17 11:27 | Day surgery (SDC) | payer MEDICARE, OTHER, SELFPAY ==
[2021-09-17] VITALS (7 sets, daily range): BP systolic 113–155; BP diastolic 48–81; PULSE 72–83; RESP 12–18; TEMP 36.3–36.9; O2SAT 98–100; BMI 26.6
--- NOTE | 2021-09-17 | PATH_ITS ---
[facility] Accession Number: [id number] . 01 Material submitted: . PART A: stomach - BIOPSY ANTRUM PART B: esophagus, E-G Junction - BIOPSY GE JUNCTION . 02 Diagnosis: A. Stomach, Antrum, Biopsy: Antral mucosa with mild chronic gastritis. Negative for Helicobacter by immunohistochemistry. Negative for intestinal metaplasia. Negative for dysplasia and malignancy. . B. Gastroesophageal Junction, Biopsy: Columnar mucosa with mild chronic inflammation. Negative for intestinal metaplasia by Alcian blue stain. Negative for dysplasia and malignancy. [facility] 09/20/2021 1603 Local . 02 Electronically signed: . Roopa Bernardo MD, Pathologist NPI- [id number] . 01 Gross description: . A. Received in formalin, labeled antrum consists of two ward fragments of soft tissue measuring 0.2 x 0.2 x 0.2 cm in aggregate. The specimen is entirely submitted in cassette A1. B. Received in formalin, labeled GE junction and consists of a 0.3 x 0.2 x 0.2 cm ward fragment of soft tissue, which is entirely submitted in cassette B1. (EA:[id number]) /MRV 09/18/2021 1239 Local . 02 Microscopic: . A. An immunohistochemical stain was performed to evaluate for Helicobacter organisms and is negative. The control stain showed appropriate reactivity. . B. An Alcian blue stain was performed to evaluate for intestinal metaplasia and is negative. The control stain showed appropriate reactivity. . * This test was developed and its performance characteristics determined by [employer]. It has not been cleared or approved by the U.S. Food and Drug Administration. The FDA has determined that such clearance or approval is not necessary. This test is used for clinical purposes. It should not be regarded as investigational or for research. . 02 Pathologist provided ICD-10: R13.19, R13.10 . 02 CPT . 001228, 065729, 925989, A22009 Performed at: 01 [facility] [address] [address], [place], [place] [id number] MD David Dumont MD Phone: [phone] Performed at: [id number] [place], [place] [id number] MD Roopa Bernardo MD Phone: [phone]
[2021-09-17] MEDS: SODIUM CHLORIDE 0.9% 1,000 ML 84 ML IV (12:14)
--- NOTE | 2021-09-17 13:25 | PM.HP.1 ---
History of Present Illness History of Present Illness Date Patient Seen: 09/17/21 Time Patient Seen: 13:25 Chief complaint: SDC Narrative: I reviewed my note from July 23, 2021 no major changes. Patient History Family & Social History Social History: household members spouse Tobacco & Substance use: Smoking Status Never smoker alcohol intake frequency holiday/special occasion Substance Use Type does not use Meds Home Medications and Allergies Home Medications Medication Instructions Recorded Confirmed Type BUPROPION HCL (WELLBUTRIN XL) 300 mg PO QDAY #0 05/20/13 09/17/21 History Multimineral/Multivitamin 1 tab PO QDAY #0 05/20/13 09/17/21 History (THERAGRAN M ) atorvastatin 10 mg tablet (Lipitor) 10 mg PO HS #0 05/20/13 09/17/21 History calcium carbonate 500 mg (1,250 500 mg PO [facility] #0 05/20/13 09/17/21 History mg)-vitamin D3 200 unit tablet (Oyster Shell Calcium-Vit D3) melatonin 3 mg tablet 6 mg PO HS #0 05/20/13 09/17/21 History oxybutynin chloride 5 mg 5 mg PO QDAY #0 05/20/13 09/17/21 History tablet,extended release 24 hr (Ditropan XL) losartan 50 mg tablet 50 mg PO DAILY 09/17/21 09/17/21 History trospium 60 mg capsule,extended 60 mg PO BID 09/17/21 09/17/21 History release 24 hr Allergies Allergy/AdvReac Type Severity Reaction Status Date / Time CODEINE Allergy Severe SEVERE Uncoded 09/17/21 12:16 N/V, vanessa Review of Systems Review of Systems ROS: Yes All systems reviewed with the patient and are negative except as otherwise documented Exam Vital Signs (past 8 hours): - 09/17/21 11:43 Temperature 97.4 F L Pulse Rate 80 Respiratory Rate 16 Blood Pressure 155/64 H Pulse Oximetry 100 Oxygen Delivery Method Room Air Const General: cooperative and comfortable Orientation: alert HENMT Head: normocephalic Ears: external ears normal Nose: external nose normal Face and sinus: normal facial exam Eyes General: appearance normal, both eyes and all related structures Neck Neck: normal visual inspection Chest Chest: normal inspection of the chest Resp Effort & Inspection: normal respiratory effort Cardio Rate: regular rate GI Inspection: normal to inspection Skin General: no rashes or lesions noted and No jaundice Neuro General: patient alert and moves all extremities Cognition: normal cognition Speech: speech normal Extrem General: normal to inspection Psych Appearance: grossly normal Assessment & Plan Assessment & Plan narrative: GERD odynophagia constipation personal history of colon polyps. EGD and colonoscopy are pursued today. Time Spent With Patient Critical Care time: I spent a total of [] minutes of critical care time on this patient's care today; this time is exclusive of procedural time.
--- NOTE | 2021-09-17 13:28 | PM.PREOP ---
Pre-operative Note COVID-19 COVID-19 status: Negative Result date/Date tested (Pos, Neg/Pending): 09/16/21 Interval Note History & Physical reviewed/Exam performed by Physician: Yes Changes to H&P: No ASA Class (for procedural sedation): II
--- NOTE | 2021-09-17 14:09 | PM.OP.EC ---
Operative Date/Time/Diagnoses Date of procedure: 09/17/21 Time of procedure: 14:09 Pre-op diagnosis: GERD odynophagia personal history of colon polyps Post-op diagnosis: same Procedure & Clinicians Study performed: EGD with biopsy and colonoscopy Same procedure as scheduled: Yes Indications: GERD odynophagia personal history of colon polyps Surgeon: Blas Cuello Procedure Notes SCOAP/Timeout: Done Procedure in detail: After the risks and benefits were explained, written and verbal informed consent was obtained. The patient was brought into the procedure room and placed into the left lateral decubitus position. Please see nurse instrumentation supervisor notes for sedation details. The scope was introduced into the mouth through the bite block and advanced under direct visualization to the 2nd portion of the duodenum. The scope was slowly withdrawn carefully examining the mucosa for any defects or lesions. Retroflexed views were accomplished in the stomach. The stomach was decompressed, the scope was then removed from the patient who tolerated the procedure well. Patient was then turned around a digital rectal examination accomplished no significant pathology appreciated the scope was introduced into the rectum and advanced to the cecum as identified by the appendiceal orifice and ileocecal valve. The scope was slowly withdrawn to carefully examine the mucosa for any defects or lesions. Multiple direct views were made through the dentate line for exclusion of pathology the colon was decompressed scope removed patient tolerated the procedure well. Bowel prep fair Pediatric colonoscope Scope withdrawal time: 6 minutes Sedation minutes: 16 Complications: none Impression: 1. Duodenum: There were a couple of nonbleeding angio dysplasia foci in the distal 2nd portion. Otherwise no significant pathology in the duodenum. 2. Stomach: Patient had a moderate gastropathy characterized by mosaic appearance to the mucosa in the antrum no ulcers no mass lesions no outlet obstruction. Antral biopsies were taken for exclusion of Helicobacter or other pathology. Otherwise retroflexed views of the LES were unremarkable. 3. Esophagus: The squamocolumnar junction was slightly variable at the level of the GE junction. There is no evidence of any stricture into no evidence of any active inflammation. In order to exclude short tongue of Lancaster's, biopsy was taken from this location. The remainder of the esophagus was unremarkable. 4. Colon: Patient had a slightly tortuous colon. Navigation was a little challenging. There were a couple of areas where fibrous seed-like stool debris remained in the right colon. In some of these areas small polyps could have been overlooked. Within the limitations of bowel prep no polyps or mass lesions appreciated throughout. Endoscopic diagnosis 1. Gastropathy 2. Irregular Z-line 3. Nonbleeding duodenal angiodysplasia 4. Twisty colon 5. Otherwise visually unremarkable colonoscopy to cecum Post-procedure Plan for aftercare: 1. Await histopathology 2. If Lancaster's is identified then surveillance EGD will be indicated. 3. Repeat colonoscopy 5 years. Disposition: PACU
--- NOTE | 2021-09-17 14:38 | SUR.PHASEI ---
Pacu- 1426-c/o left eye irritation=like something in it. eye appears normal. lightly irrigated with few drops of NS. Patient reports much better now. states has dry eyes normally. Asked if feeling gone-states yes.
== END 2021-09-17 15:16 | disposition home or self-care (01) ==
LOC: ENDO 11:29
PROVIDERS: PCP Student in an Organized Health Care Education/Training Program; Referring Provider Internal Medicine Gastroenterology; Visit Provider Internal Medicine Gastroenterology
PROC: 0DJ08ZZ Inspection of Upper Intestinal Tract, Via Natural or Artificial Opening Endoscopic (ICD-10-PCS; CPT 43235; principal; 2021-09-17 13:00)
PROC: 0DJD8ZZ Inspection of Lower Intestinal Tract, Via Natural or Artificial Opening Endoscopic (ICD-10-PCS; CPT 45378; 2021-09-17 13:00)
DX: Z12.11 Encounter for screening for malignant neoplasm of colon (principal); Z86.010 Personal history of colon polyps; R13.10 Dysphagia, unspecified; K21.9 Gastro-esophageal reflux disease without esophagitis; K31.9 Disease of stomach and duodenum, unspecified; K31.819 Angiodysplasia of stomach and duodenum without bleeding; G35 Multiple sclerosis; I10 Essential (primary) hypertension; K29.50 Unspecified chronic gastritis without bleeding
CPT/HCPCS: 43239; G0105; J2704

== ENCOUNTER → 2022-12-15 13:18 | Outpatient (CLI) | payer MEDICARE, OTHER, SELFPAY ==
--- NOTE | 2022-12-15 | DI.ECHO.S_ITS ---
[facility]---------+ [facility] +---------+ : : [address] : : : : [id number] : : : : Phone: [phone]+ Echocardiogram Report + + :Name: RENITA RICHEY Study Date: 12/15/2022 Height: 64 in : :[facility] ReadingLocation: Weight: 161 lb : : Gender: Female BSA: 1.8 m2 : :: 1950 Age: 72 yrs BP: 134/74 mmHg: :Reason For Study: Palpitations : :Ordering Physician: BIANKA, : :NEO Performed By: Tamanna Torres : :Referring: NEO CARLTON : + + Interpretation Summary Borderline concentric left ventricular hypertrophy with ejection fraction 60- 65%. Diastolic parameters suggest a relaxation abnormality of the left ventricle, consistent with probable normal filling pressures. Mildly dilated left atrium. Mild mitral annular calcification. Mild mitral regurgitation. Mild tricuspid regurgitation. Procedure: A two-dimensional transthoracic echocardiogram with color flow and Doppler was performed. The study quality was technically adequate. The patient was in sinus rhythm with heart rates between 68-70 bpm during the exam. Left Ventricle: The left ventricle is normal in size. There is borderline concentric left ventricular hypertrophy. The ejection fraction is estimated to be 60-65%. There are no focal wall motion abnormalities. Diastolic parameters suggest a relaxation abnormality of the left ventricle, consistent with probable normal filling pressures. Right Ventricle: The right ventricle is normal in size and function. Atria: The left atrium is mildly dilated. Right atrial size is normal. There is no Doppler evidence for an interatrial shunt. Mitral Valve: The mitral valve is normal in structure and function. The mitral valve leaflets appear mildly thickened, but open well. There is mild mitral annular calcification. There is mild mitral regurgitation. There are multiple regurgitant jets present. Aortic Valve: The aortic valve is normal in structure and function. There is trace aortic regurgitation. Tricuspid Valve: The tricuspid valve is normal in structure and function. There is mild tricuspid regurgitation. The right ventricular systolic pressure is estimated to be at least 27.2 mmHg based on an estimated right atrial pressure of 3 mm Hg. Pulmonic Valve: The pulmonic valve leaflets are thin and pliable; valve motion is normal. There is mild pulmonic regurgitation. Great Vessels: The ascending aorta is normal in size. The pulmonary artery is normal size. The IVC is of normal diameter and collapses greater than 50% with a sniff. This suggests a low right atrial pressure of 3 mm Hg. Pericardium/ Pleura There is no pericardial effusion. There is no pleural effusion. MMode/2D Measurements & Calculations LVIDd: 4.0 cm LVOT diam: 2.0 cm LVIDs: 2.5 cm Ao root diam: 3.0 cm FS: 37.5 % asc Aorta Diam: 3.0 cm EPSS: 0.20 cm IVSd: 1.2 cm LVPWd: 1.2 cm LV denton. diameter/BSA (cm/m^2): 2.2 LV sys. diameter/BSA (cm/m^2): 1.4 LA dimension: 3.7 cm RA long axis: 4.7 cm LA A2 area: 19.1 cm2 RA area: 13.8 cm2 LA A4 area: 20.6 cm2 RA vol: 34.6 ml LA length (vol): 5.2 cm RA : 19.4 ml/m2 LA vol: 63.9 ml IVC diam: 1.5 cm LA vol index: 35.8 ml/m2 RVD1 (basal): 3.8 cm LVLs ap4: 5.2 cm LVLd ap2: 6.8 cm TAPSE_phl: 2.8 cm LVLs ap2: 5.2 cm Doppler Measurements & Calculations Ao V2 max: 146.0 cm/sec LVOT Max Salo: 90.0 cm/sec Ao V2 mean: 106.0 cm/sec LV V1 max P.2 mmHg Ao max P.0 mmHg LV V1 VTI: 20.3 cm Ao mean P.0 mmHg JIN(I,D): 1.8 cm2 Ao V2 VTI: 35.6 cm JIN(V,D): 1.9 cm2 sev ratio: 0.57 JIN indexed to BSA (cm^2/m^2): 1.0 MV E max salo: 105.0 cm/sec TR max salo: 246.0 cm/sec MV A max salo: 124.0 cm/sec TR max P.2 mmHg MV E/A: 0.85 PA V2 max: 102.0 cm/sec Med Peak E' Salo: 7.4 cm/sec PA V2 mean: 70.2 cm/sec E/E' med: 14.3 PA mean P.0 mmHg Lat Peak E' Salo: 6.8 cm/sec E/E' lat: 15.5 E/e' average: 14.9 MV dec time: 0.25 sec MVA(VTI): 1.7 cm2 MV V2 mean: 75.7 cm/sec SV(LVOT): 63.8 ml MV mean P.0 mmHg MV V2 VTI: 37.5 cm AV VR_phl: 0.62 JIN(VTI)/BSA_phl: 1.0 Electronically signed by: Jenniffer Osman on Reading Physician:12/15/2022 07:26 PM
--- NOTE | 2022-12-15 20:09 | DI.NM.S_ITS ---
DATE OF SERVICE: 12/15/2022 PROCEDURE: Exercise stress test. INDICATION: Palpitation, shortness of breath. CARDIAC STRESS: The patient underwent exercise stress test for 6 minutes and achieved maximum heart rate of 130, which was 88 percent of target heart rate. Resting blood pressure 140/70 mmHg. Peak blood pressure 230/70 mmHg, suggestive of hypertensive blood pressure response. Baseline rhythm was sinus. During stress, no convincing ischemic changes seen. No significant arrhythmias seen. No anginal symptoms. The patient felt fatigue. CONCLUSION: Exercise stress test is negative for inducible ischemia. Fair exercise tolerance. Functional aerobic impairment minus 7 percent. Hypertensive blood pressure response. Peak blood pressure 230/70 mmHg and resting blood pressure 140/70 mmHg. No significant arrhythmias. No ischemic symptoms. Overall, low-risk exercise stress test. Kathya Keenan - MAGALY/teresita/guillermo doc#: [id number]/job#: [id number] dd: 12/15/2022 16:54:00 dt: 12/15/2022 19:48:00 DICTATING /COPIES TO: Aggie Ortiz MD COPIES MNE: ALESSANDRA;
== END ==
PROVIDERS: PCP Registered Nurse; Referring Provider Registered Nurse; Visit Provider Registered Nurse
DX: I08.1 Rheumatic disorders of both mitral and tricuspid valves (principal); R00.2 Palpitations; R06.02 Shortness of breath
CPT/HCPCS: 93017; 93306

== ENCOUNTER → 2023-03-06 13:08 | Outpatient (CLI) | payer MEDICARE, OTHER, SELFPAY ==
--- NOTE | 2023-03-06 | DI.RAD.S_ITS ---
PROCEDURE: XR CHEST 2V INDICATIONS: Shortness of breath TECHNIQUE: 2 views of the chest were acquired. COMPARISON: None. FINDINGS: Surgical changes and devices: None. Lungs and pleura: Lungs are clear. No pleural effusions or pneumothorax. Mediastinum: Mediastinal contours are normal. Heart size is normal. Bones and chest wall: No suspicious bony abnormalities. Soft tissues appear unremarkable. IMPRESSION: Normal for age, source of current shortness of breath symptoms is not seen. Dictated by: Emre Garcia M.D. on 03/06/2023 at 14:14 Approved by: Emre Garcia M.D. on 03/06/2023 at 14:14
== END ==
PROVIDERS: PCP Registered Nurse; Referring Provider Registered Nurse; Visit Provider Registered Nurse
DX: R06.02 Shortness of breath (principal)
CPT/HCPCS: 71046

== ENCOUNTER 2023-08-23 11:47 | Emergency (ER) | payer MEDICARE, OTHER, SELFPAY ==
[2023-08-23] VITALS (8 sets, daily range): BP systolic 155–187; BP diastolic 67–107; PULSE 69–76; RESP 9–20; TEMP 36.6; O2SAT 95–99; BMI 25.8
--- NOTE | 2023-08-23 12:04 | DI.RAD.S_ITS ---
PROCEDURE: XR CHEST 1V INDICATIONS: chest pain TECHNIQUE: One view of the chest was acquired. COMPARISON: [facility], CR, XR CHEST 2V, 03/06/2023, 13:06. FINDINGS: Surgical changes and devices: None. Lungs and pleura: Lungs are clear. No pleural effusions or pneumothorax. Mediastinum: Mediastinal contours appear normal. Heart size is normal. Bones and chest wall: No suspicious bony lesions. Overlying soft tissues appear unremarkable. IMPRESSION: No acute cardiopulmonary findings Approved by: Luis Red M.D. on 08/23/2023 at 11:53
[2023-08-23 12:10] LABS: Add Manual Diff / Slide Review NO; Basophils Absolute Auto 0 /uL (0-100); Basophils Percent Auto 0.8 % (0-2); Eosinophils Absolute Auto 200 /uL (0-450); Eosinophils Percent Auto 3.2 % (2-4); Hematocrit 34.4 % (36-46); Hemoglobin 11.4 g/dL (12.0-16.0); Lymphocytes Absolute Auto 1300 /uL (1100-4500); Lymphocytes Percent Auto 22.2 % (25-40); Mean Corpuscular HGB Conc 33.2 % (30-36); Mean Corpuscular Hemoglobin 31.2 PG (26-34); Mean Corpuscular Volume 94.2 fL (80-100); Monocytes Absolute Auto 600 /uL (0-900); Monocytes Percent Auto 9.6 % (3-14); Neutrophils Absolute Auto 3900 /uL (1500-7000); Neutrophils Percent Auto 64.2 % (50-75); Platelet Count 268 X10^3/uL (150-400); Red Blood Cell Count 3.66 X10^6/uL (4.0-5.2); Red Cell Distribution Width 13.9 % (11.6-14.8); White Blood Cell Count 6.1 X10^3/uL (4.5-11.0)
[2023-08-23 12:16] LABS: Alanine Aminotransferase 24 IU/L (<35); Albumin 4.4 g/dL (3.5-5.0); Albumin Globulin Ratio 1.8 (1.0-2.8); Alkaline Phosphatase 77 U/L (38-126); Aspartate Aminotransferase 31 IU/L (14-36); Bilirubin Total 0.3 mg/dL (0.2-1.3); Blood Urea Nitrogen 19 mg/dL (7-17); Carbon Dioxide 25 mmol/L (22-32); Chloride 102 mmol/L (98-107); Creatine Kinase 73 U/L (30-135); Estimated Glomerular Filt Rate > 60 mL/min (>60); Globulin 2.5 g/dL (1.7-4.1); Glucose 66 mg/dL (80-110); Lipase 59 U/L (23-300); Potassium 5.1 mmol/L (3.4-5.1); Sodium 134 mmol/L (137-145); Total Protein 6.9 g/dL (6.3-8.2)
[2023-08-23 12:17] LABS: HEMOLYSIS 54 (0-50)
[2023-08-23] MEDS: SODIUM CHLORIDE 0.9% 1,000 ML 1000 ML IV (12:25)
[2023-08-23 12:27] LABS: Troponin I < 0.012 ng/mL (0.01-0.034)
--- NOTE | 2023-08-23 12:53 | ED.DIZZY ---
HPI - Dizziness General Chief Complaint: Dizziness Stated Complaint: Lightheaded, Faint Time Seen by Provider: 08/23/23 12:03 History of Present Illness HPI Narrative: Patient 73-year-old female history of multiple sclerosis hyperlipidemia presenting today with sudden onset lightheadedness and left shoulder arm pain. She reports that she was sitting at [employer] when she had sudden onset of left arm pain. She describes it as sharp and shooting stabbing and then a dull ache. She denies any chest pain. She reports that the pain radiated up into her neck but not her jaw. No history of coronary artery disease. She got very lightheaded and dizzy. Pain is overall gone now and feeling much better. Shortness of breath nausea vomiting. Related Data Home Medications Medication Instructions Recorded Confirmed BUPROPION HCL (WELLBUTRIN XL) 300 mg PO QDAY ##0 05/20/13 09/17/21 Multimineral/Multivitamin 1 tab PO QDAY ##0 05/20/13 09/17/21 (THERAGRAN M ) atorvastatin 10 mg tablet (Lipitor) 10 mg PO HS ##0 05/20/13 09/17/21 calcium carbonate 500 mg-vitamin 500 mg PO [facility] ##0 05/20/13 09/17/21 D3 5 mcg (200 unit) tablet (Oyster Shell Calcium-Vitamin D3) melatonin 3 mg tablet 6 mg PO HS ##0 05/20/13 09/17/21 oxybutynin chloride 5 mg 5 mg PO QDAY ##0 05/20/13 09/17/21 tablet,extended release 24 hr (Ditropan XL) losartan 50 mg tablet 50 mg PO DAILY 09/17/21 09/17/21 trospium 60 mg capsule,extended 60 mg PO BID 09/17/21 09/17/21 release 24 hr Allergies Allergy/AdvReac Type Severity Reaction Status Date / Time codeine Allergy Severe Hives and Verified 08/23/23 12:10 nausea/vomiting Review of Systems Review of Systems ROS Unobtainable: All systems reviewed & are unremarkable except as noted in HPI and below Patient History Social History household members: spouse Smoking Status: Never smoker Smoking Status: Never smoker alcohol intake frequency: holidays/special occasions only Substance Use Type: does not use Exam Initial Vital Signs Initial Vital Signs: Vital Signs Pulse Rate 76 08/23/23 11:52 Respiratory Rate 16 08/23/23 11:52 Pulse Oximetry 98 08/23/23 11:52 GENERAL: Alert 73-year-old female and in no acute distress. HEENT: Head atraumatic,EOMI, pupils reactive, face symmetric, moist mucous membranes CARDIOVASCULAR: Regular rate and rhythm without murmurs, rubs or gallops. RESPIRATORY: Breath sounds equal bilaterally, no wheezes rales or rhonchi. ABDOMEN: Soft, nontender. Normoactive bowel sounds all 4 quadrants. No guarding or rebound. EXTREMITIES: Normal range of motion, no clubbing or edema. Neurovascularly intact. Left shoulder pain not reproducible with movement distal radial pulse intact NEUROLOGICAL: Alert and oriented x4.Normal gait and speech. SKIN: Warm, dry, no laceration, no petechiae, no rashes or lesions. Scores HEART Score Heart Score history: Slightly Suspicious Heart Score EKG: Normal Heart Score Age: > or = 65 years old Heart Score risk factors: No known risk factors Heart Score troponin: < or = to normal limit Heart Score Total: 2 Course Orders Ordered: ED Orders 08/23/23 11:50 Complete Blood Count AUTO DIFF Stat Comprehensive Metabolic Panel Stat Lipase Stat Troponin & CK Cardiac Panel Stat 08/23/23 12:04 XR chest 1V Stat EKG-12 Lead Stat 08/23/23 13:53 Trop I [Troponin I] Stat Discontinued Medications Sodium Chloride (Normal Saline 0.9%) 1,000 mls @ 1,000 mls/hr IV CONT DARCY Last Infusion: 08/23/23 14:35 Dose: Infused Documented By: Admin: 08/23/23 12:25 Dose: 1,000 mls/hr Documented By: CTS Vital Signs Vital signs: Vital Signs - 8 hr 08/23/23 11:52 08/23/23 11:53 08/23/23 11:53 Temperature Pulse Rate 76 76 Respiratory Rate 16 16 Blood Pressure 170/81 H Pulse Oximetry 98 96 Oxygen Delivery Method 08/23/23 11:54 08/23/23 12:00 08/23/23 12:00 Temperature 97.8 F Pulse Rate 76 74 Respiratory Rate 16 20 Blood Pressure 187/76 H 155/67 H Pulse Oximetry 97 95 Oxygen Delivery Method Room Air 08/23/23 12:30 08/23/23 12:30 08/23/23 13:00 Temperature Pulse Rate 72 Respiratory Rate 16 Blood Pressure 172/75 H 157/107 H Pulse Oximetry 97 Oxygen Delivery Method 08/23/23 13:00 08/23/23 13:30 08/23/23 13:30 Temperature Pulse Rate 71 69 Respiratory Rate 15 9 L Blood Pressure 165/72 H Pulse Oximetry 99 98 Oxygen Delivery Method 08/23/23 15:02 Temperature Pulse Rate 71 Respiratory Rate 16 Blood Pressure 178/73 H Pulse Oximetry 96 Oxygen Delivery Method Room Air MDM - Dizziness Lab Data 08/23/23 11:50 08/23/23 11:50 Labs: Lab Results 08/23/23 08/23/23 Range/Units 11:50 13:53 WBC 6.1 (4.5-11.0) X10^3/uL RBC 3.66 L (4.0-5.2) X10^6/uL Hgb 11.4 L (12.0-16.0) g/dL Hct 34.4 L (36-46) % MCV 94.2 (80-100) fL MCH 31.2 (26-34) PG MCHC 33.2 (30-36) % RDW 13.9 (11.6-14.8) % Plt Count 268 (150-400) X10^3/uL Neut % (Auto) 64.2 (50-75) % Lymph % (Auto) 22.2 L (25-40) % Clay % (Auto) 9.6 (3-14) % Eos % (Auto) 3.2 (2-4) % Baso % (Auto) 0.8 (0-2) % Neut # (Auto) 3900 (1449-7314) /uL Lymph # (Auto) 1300 (8307-0337) /uL Clay # (Auto) 600 (0-900) /uL Eos # (Auto) 200 (0-450) /uL Baso # (Auto) 0 (0-100) /uL Sodium 134 L (137-145) mmol/L Potassium 5.1 (3.4-5.1) mmol/L Chloride 102 (98-107) mmol/L Carbon Dioxide 25 (22-32) mmol/L BUN 19 H (7-17) mg/dL Creatinine 0.95 (0.52-1.04) mg/dL Estimated GFR > 60 (>60) mL/min BUN/Creatinine Ratio 20.0 (6-22) Glucose 66 L (80-110) mg/dL Calcium 10.0 (8.4-10.2) mg/dL Total Bilirubin 0.3 (0.2-1.3) mg/dL AST 31 (14-36) IU/L ALT 24 (<35) IU/L Alkaline Phosphatase 77 (38-126) U/L Total Creatine Kinase 73 (30-135) U/L Troponin I < 0.012 < 0.012 (0.01-0.034) ng/mL Total Protein 6.9 (6.3-8.2) g/dL Albumin 4.4 (3.5-5.0) g/dL Globulin 2.5 (1.7-4.1) g/dL Albumin/Globulin Ratio 1.8 (1.0-2.8) Lipase 59 (23-300) U/L Imaging Data Chest x-ray: Radiologist's Impression: PROCEDURE: XR CHEST 1V INDICATIONS: chest pain TECHNIQUE: One view of the chest was acquired. COMPARISON: [facility], , XR CHEST 2V, 03/06/2023, 13:06. FINDINGS: Surgical changes and devices: None. Lungs and pleura: Lungs are clear. No pleural effusions or pneumothorax. Mediastinum: Mediastinal contours appear normal. Heart size is normal. Bones and chest wall: No suspicious bony lesions. Overlying soft tissues appear unremarkable. IMPRESSION: No acute cardiopulmonary findings Approved by: Luis Red M.D. on 08/23/2023 at 11:53 ECG Data Interpretation: Normal sinus rhythm rate 74 DC interval 172 QRS [address] changes T-wave inversion noted in lead V1 and V2 MDM Narrative Medical decision making narrative: Patient 73-year-old female presents today with left arm pain and lightheadedness. She was sitting at [employer] when she says had sudden onset left sharp stabbing pain which point she had a little bit lightheaded. At no time did she have any chest pain. She is a low risk heart score she is 2- troponins no EKG changes. Other blood work has been reviewed and overall reassuring. X-ray does not show any abnormality Possibility of acute coronary syndrome although sharp stabbing pain that quickly went away I think unlikely. Possible musculoskeletal however she denies any injury. Possible nerve pain. At this time we discussed follow-up with PCP may require further outpatient cardiac testing but does not need to stay in the hospital. Discharge Plan Departure Patient Disposition: Home Clinical Impression: Atypical chest pain Instructions: DI for Atypical Chest Pain Activity Restrictions/Additional Instructions: *You have been diagnosed with atypical chest pain *What to do: At this time please talk to your primary care provider about further cardiac testing. If you should have any new or worsening symptoms please return to the ED. *Continue to take medications as directed *Follow up with your primary care provider in 2-3 days or call [phone] *Return to ER if you should have increasing chest pain arm pain back pain drop any new, worsening or concerning symptoms Prescriptions: No Action BUPROPION HCL (WELLBUTRIN XL) 300 mg PO QDAY Qty: 0 atorvastatin [Lipitor] 10 MG tablet 10 mg PO HS Qty: 0 oxybutynin chloride [Ditropan XL] 5 MG tablet extended release 24hr 5 mg PO QDAY Qty: 0 Multimineral/Multivitamin (THERAGRAN M ) 1 tab PO QDAY Qty: 0 melatonin 3 MG tablet 6 mg PO HS Qty: 0 calcium carbonate-vitamin D3 [Oyster Shell Calcium-Vit D3] 1,250 MG/200 IU tablet 500 mg PO [facility] Qty: 0 losartan 50 mg tablet 50 mg PO DAILY Patient Comments: take 1 tablet by mouth once daily trospium 60 mg capsule,extended release 24hr 60 mg PO BID Patient Comments: take 1 capsule by mouth twice a day Referrals: Pooja Yusuf ARNP [Primary Care Provider] - Stand Alone Forms: Patient Portal/API
[2023-08-23 14:25] LABS: Troponin I < 0.012 ng/mL (0.01-0.034)
== END 2023-08-23 15:02 | disposition home or self-care (01) ==
PROVIDERS: Emergency Provider Emergency Medicine; PCP Registered Nurse
DX: R07.89 Other chest pain (principal); R42 Dizziness and giddiness
CPT/HCPCS: 36415; 71045; 80053; 82550; 83690; 84484; 85025; 93005; 93010; 99284

== ENCOUNTER → 2023-11-16 14:57 | Outpatient (CLI) | payer MEDICARE, OTHER, SELFPAY ==
--- NOTE | 2023-11-16 14:59 | DI.RAD.S_ITS ---
Bone Density Report Name: RENITA RICHEY Age: 73 Sex: Female Ethnicity: White Date of : 1950 Indication: postmenopausal; screening for osteoporosis; Referring Provider: NEO CARLTON Study: Bone densitometry was performed. Exam Date: November 16, 2023 Accession number: [id number] Bone Density: Region BMD T-score Z-score Classification AP Spine(L1-L4) 0.774 -2.5 -0.2 Osteoporosis Femoral Neck (Left) 0.641 -1.9 0.1 Osteopenia Total Hip (Left) 0.782 -1.3 0.4 Osteopenia Femoral Neck (Right) 0.636 -1.9 0.1 Osteopenia Total Hip (Right) 0.766 -1.4 0.3 Osteopenia Total Hip Mean 0.774 -1.4 0.4 Osteopenia World Health Organization criteria for BMD impression classify patients as: Normal (T-score at or above -1.0), Osteopenia (T-score between -1.0 and -2.5), or Osteoporosis (T-score at or below -2.5). 10-year Fracture Risk: FRAX not reported because: Some T-score for Spine Total or Hip Total or Femoral Neck at or below -2.5 Previous Exams: -- Region Exam Age BMD T-score BMD Change BMD Change Date g/cm2 vs Baseline vs Previous -- AP Spine (L1-L4) 11/16/2023 73 0.774 -2.5 -0.163 (-17.4%)# -0.163 (-17.4%)# 09/05/2015 65 0.938 -1.0 Total Hip(Left) 11/16/2023 73 0.782 -1.3 -0.075 (-8.8%)# -0.075 (-8.8%)# 09/05/2015 65 0.857 -0.7 Total Hip(Right) 11/16/2023 73 0.766 -1.4 -0.129 (-14.4%)# -0.129 (-14.4%)# 09/05/2015 65 0.895 -0.4 -- *Denotes significance at 95% confidence level, LSC for AP Spine = 0.022 g/cm2, LSC for Total Hip = 0.027 g/cm2 # Denotes dissimilar scan types or analysis methods Impression: The patient has osteoporosis, based on the Total Spine T-score. No significant bone loss was observed. Discussion: INCREASED RISK OF FRACTURE. BONE DENSITY IS UNDESIRABLY LOW AT ONE OR MORE SKELETAL SITES, CONSISTENT WITH POSTMENOPAUSAL OSTEOPOROSIS. This patient's lowest T-score meets the World Health Organization's (WHO) criteria for osteoporosis at one or more sites (T-score -2.5 or below). In untreated patients, the risk of osteoporotic fracture increases approximately two-fold for each 1.0 SD decrease in T-score. Low bone density is not the only risk factor for fracture; also consider factors such as patient's age, frailty or poor health, risk of falling, risk of injury, previous osteoporotic fracture, family history of osteoporosis, cigarette smoking, low body weight, etc. Not everyone with low bone mineral density has osteoporosis; osteomalacia and other metabolic bone disorders should also be considered. Patients who have osteoporosis should be evaluated for specific diseases and conditions (secondary causes) that may cause or contribute to bone loss. The [place] [employer]ocrinologists (AACE) and National Osteoporosis Foundation (NOF) recommend pharmacologic intervention for all postmenopausal women whose T-score is in this range. The patient should follow a healthful lifestyle (good nutrition with adequate calcium and vitamin D, and appropriate weight-bearing exercise). Follow-Up: Consider a repeat BMD and Vertebral Fracture Assessment (VFA) exam in 2 years or sooner if medically necessary, to reassess this patient's status. Reported by: GINA HARMON MD on 11/16/2023 3:33:00 PM.
--- NOTE | 2023-11-16 15:00 | DI.MG.S_ITS ---
BILATERAL DIGITAL SCREENING MAMMOGRAM 3D/2D WITH CAD: 11/16/2023 CLINICAL: Routine screening. Family history breast cancer. Comparison is made to exams dated: 11/22/2020 mammogram, 11/08/2019 mammogram, and 10/13/2018 mammogram - [facility]. There are scattered areas of fibroglandular density in both breasts (category b / 25%-50% glandular tissue). Current study was also evaluated with a Computer Aided Detection (CAD) system. No significant masses, calcifications, or other findings are seen in either breast. There has been no significant interval change. IMPRESSION: NEGATIVE There is no mammographic evidence of malignancy. A 1 year screening mammogram is recommended. Based on the Tyrer Cuzick model (a risk assessment model) the patient's lifetime risk is 3.7% and her 10 year risk is 3.1%. According to the ACR, ACS, and NCCN guidelines, an annual breast MRI exam along with mammogram is recommended if the patient's lifetime risk is 20% or greater. This exam was interpreted at Station ID: [id number]. NOTE: For mammograms, a report in lay terms will be sent to the patient. Approximately 15% of breast malignancies will not be visualized mammographically. In the management of a palpable breast mass, a negative mammogram must not discourage biopsy of a clinically suspicious lesion. Electronically Signed By: Balwinder akins/jose:11/17/2023 08:32:05 letter sent: Normal Exam ACR BI-RADS Category 1: Negative 3341F
== END ==
PROVIDERS: PCP Registered Nurse; Referring Provider Registered Nurse; Visit Provider Registered Nurse
DX: Z13.820 Encounter for screening for osteoporosis (principal); Z12.31 Encounter for screening mammogram for malignant neoplasm of breast; Z80.3 Family history of malignant neoplasm of breast; R92.323 Mammographic fibroglandular density, bilateral breasts; M81.0 Age-related osteoporosis without current pathological fracture; Z78.0 Asymptomatic menopausal state
CPT/HCPCS: 77063; 77067; 77080

== ENCOUNTER 2023-11-23 18:39 | Inpatient (IN) | payer MEDICARE, OTHER, SELFPAY ==
[2023-11-23] VITALS (55 sets, daily range): BP systolic 100–207; BP diastolic 54–89; PULSE 110–162; RESP 10–28; TEMP 36.2; O2SAT 18–98; BMI 28.3
--- NOTE | 2023-11-23 19:09 | DI.RAD.S_ITS ---
PROCEDURE: XR CHEST 1V INDICATIONS: chest pain TECHNIQUE: One view of the chest was acquired. COMPARISON: [facility], CR, XR CHEST 1V, 08/23/2023, 12:12. FINDINGS: Surgical changes and devices: None. Lungs and pleura: Mildly increased pulmonary vascularity, left greater than right. No pleural effusions or pneumothorax. Mediastinum: Mediastinal contours appear normal. Heart size is normal. Bones and chest wall: No suspicious bony lesions. Overlying soft tissues appear unremarkable. IMPRESSION: 1. Mildly increased pulmonary vascularity, left greater than right, suggesting mild asymmetric pulmonary edema. Dictated by: Zhang Altman M.D. on 11/23/2023 at 20:17 Approved by: Zhang Altman M.D. on 11/23/2023 at 20:18
[2023-11-23] MEDS: ASPIRIN 81 MG CHEW TAB 324 MG PO (19:19)
[2023-11-23 19:24] LABS: Add Manual Diff / Slide Review NO; Basophils Absolute Auto 0 /uL (0-100); Basophils Percent Auto 0.4 % (0-2); Eosinophils Absolute Auto 200 /uL (0-450); Eosinophils Percent Auto 2.4 % (2-4); Hematocrit 32.8 % (36-46); Hemoglobin 10.9 g/dL (12.0-16.0); Lymphocytes Absolute Auto 1600 /uL (1100-4500); Lymphocytes Percent Auto 19.2 % (25-40); Mean Corpuscular HGB Conc 33.1 % (30-36); Mean Corpuscular Hemoglobin 30.6 PG (26-34); Mean Corpuscular Volume 92.6 fL (80-100); Monocytes Absolute Auto 400 /uL (0-900); Monocytes Percent Auto 4.4 % (3-14); Neutrophils Absolute Auto 6200 /uL (1500-7000); Neutrophils Percent Auto 73.6 % (50-75); Platelet Count 295 X10^3/uL (150-400); Red Blood Cell Count 3.55 X10^6/uL (4.0-5.2); Red Cell Distribution Width 13.9 % (11.6-14.8); White Blood Cell Count 8.4 X10^3/uL (4.5-11.0)
--- NOTE | 2023-11-23 19:25 | ED_ITS ---
HPI - Chest Pain General Chief Complaint: Chest Pain Stated Complaint: high heart rate, syncope Time Seen by Provider: 11/23/23 19:05 Source: patient Mode of arrival: Wheelchair Limitations: no limitations History of Present Illness HPI narrative: This is a 73-year-old female with a history of elevated cholesterol and hypertension presenting with approximately 1-1/2 hours of rapid heart rate. Says that she noticed that she had a very rapid heart rate about an hour and a half ago. Has had some intermittent chest pain since then, he has not short of breath she has not been having fevers. Says that she has never had symptoms like this before and is not aware of any history of atrial fibrillation. There is a history of rheumatic heart disease with a heart murmur as a child which she has been since told has resolved. She says that about 4 days ago she was generally weak had chest pain that sounds like it was pleuritic but not short of breath. That has improved. Family history is positive with coronary disease in her father, as noted above history of elevated cholesterol and hypertension no history of diabetes not a smoker. No known history of coronary disease herself. No history of brain aneurysm or GI bleeding. No prior history of heart failure. Related Data Home Medications Medication Instructions Recorded Confirmed BUPROPION HCL (WELLBUTRIN XL) 300 mg PO QDAY ##0 05/20/13 11/24/23 Multimineral/Multivitamin 1 tab PO QDAY ##0 05/20/13 11/24/23 (THERAGRAN M ) atorvastatin 10 mg tablet (Lipitor) 20 mg PO HS ##0 05/20/13 11/24/23 calcium carbonate 500 mg-vitamin 500 mg PO [facility] ##0 05/20/13 09/17/21 D3 5 mcg (200 unit) tablet (Oyster Shell Calcium-Vitamin D3) melatonin 3 mg tablet 6 mg PO HS ##0 05/20/13 11/24/23 oxybutynin chloride 5 mg 5 mg PO QDAY ##0 05/20/13 09/17/21 tablet,extended release 24 hr (Ditropan XL) losartan 50 mg tablet 50 mg PO DAILY 09/17/21 11/24/23 trospium 60 mg capsule,extended 60 mg PO BID 09/17/21 11/24/23 release 24 hr dimethyl fumarate 240 mg 240 mg PO BID 11/24/23 11/24/23 capsule,delayed release gabapentin 300 mg capsule 900 mg PO ONCE PM 11/24/23 11/24/23 trospium 60 mg capsule,extended 60 mg PO BID 11/24/23 11/24/23 release 24 hr Allergies Allergy/AdvReac Type Severity Reaction Status Date / Time codeine Allergy Severe Hives and Verified 08/23/23 12:10 nausea/vomiting Patient History Social History household members: spouse Smoking Status: Never smoker alcohol intake: current Smoking Status: Never smoker alcohol intake frequency: holidays/special occasions only Substance Use Type: does not use Exam Narrative Exam Narrative: Alert, no acute distress HEENT: Normocephalic, atraumaitic moist mucus membranes Neck: Supple no midline tenderness. No jugular venous distention, no thyromegaly Lungs: Clear to ascultaion, no respiratory distress Heart: Irregularly irregular quite tachycardic Abdomen: Normal bowel sounds, soft and nontender Extremeties: Full range of motion no deformity Neuro: Alert and oriented, normal speech moves x4 Initial Vital Signs Initial Vital Signs: Vital Signs Temperature 97.1 F L 11/23/23 18:48 Pulse Rate 155 H 11/23/23 18:48 Respiratory Rate 19 11/23/23 18:48 Blood Pressure 112/77 11/23/23 18:48 Pulse Oximetry 98 11/23/23 18:48 Oxygen Delivery Method Room Air 11/23/23 18:48 Procedures Cardioversion Indication: Atrial fibrillation with rapid ventricular response Stability: Stable Number of attempts (shocks): 2 Joules used: 150 and 200 Cardiac rhythm post-cardioversion: Atrial fibrillation Additional Comments: First attempt prior to amiodarone Procedural Sedation Time of procedure: 07:25 Consent signed: Yes Time out performed: Yes Indication: cardioversion Presedation Evaluation: See physical exam above ASA Class: I Mallampati Airway Classification: Class I IV Etomidate dose (mg): 7.5 Intraservice time/total sedation time (min): 15 ED Sedation Level: Moderate (Concious) Patient Tolerated Procedure: Well Complications: none Misc Procedure Name of Procedure: Procedural sedation with etomidate and DC cardioversion. This was a 2nd unkempt that occurred at 9:55 p.m. and was completed at 10:10 p.m.. Patient received 7.5 mg of etomidate, sedation was uneventful, she was class 2 ASA. DC cardioversion was attempted, it was synchronized for atrial fibrillation with rapid ventricular response she received a single 200 joule shock, she remained in atrial fibrillation following attempted cardioversion Course Orders Ordered: ED Orders 11/23/23 19:41 D Dimer Stat 11/23/23 20:14 EKG-12 Lead Routine Acetaminophen (Acetaminophen 325 Mg Tablet) 650 mg PO Q6H PRN PRN Reason: Fever/Mild Pain (1-3) Albuterol (Albuterol 2.5 Mg/3 Ml Neb (Adult)) 2.5 mg INH [id number] PRN PRN Reason: Dyspnea Apixaban (Apixaban 5 Mg Tablet) 10 mg PO BID DARCY Stop: 11/30/23 21:01 Aspirin (Aspirin Ec 81 Mg Tablet) 81 mg PO DAILY DARCY Atorvastatin Calcium (Atorvastatin 20 Mg Tablet) 10 mg PO BEDTIME DARCY Bupropion HCl (Bupropion Xl 150 Mg Tab) 300 mg PO DAILY DARCY Calcium Carbonate (Calcium Carbonate 500 Mg Tab) 500 mg PO DAILY DARCY Sodium Chloride (Normal Saline 0.9%) 1,000 mls @ 100 mls/hr IV CONT DARCY Last Admin: 11/24/23 00:45 Dose: 100 mls/hr Documented By: KOFI Amiodarone HCl/Dextrose (Nexterone) 360 mg in 200 mls @ 33.333 mls/hr IV NOW ONE; Protocol Stop: 11/24/23 05:08 Last Admin: 11/24/23 01:24 Dose: Not Given Documented By: KOFI Amiodarone HCl/Dextrose (Nexterone) 360 mg in 200 mls @ 16.7 mls/hr IV CONT DARCY; Protocol Stop: 11/24/23 16:29 Last Admin: 11/24/23 04:27 Dose: 16.7 ml/hr, 16.7 mls/hr Documented By: KOFI Lorazepam (Lorazepam 2 Mg/Ml Inj) 0.25 mg IV Q4HR PRN PRN Reason: Anxiety Losartan Potassium (Losartan 50 Mg Tablet) 50 mg PO DAILY DARCY Melatonin (Melatonin 3 Mg Tablet) 6 mg PO BEDTIME DARCY Last Admin: 11/24/23 00:44 Dose: 6 mg Documented By: KOFI Metoprolol Tartrate (Metoprolol Ir 50 Mg Tablet) 25 mg PO Q6HR [facility] Last Admin: 11/24/23 00:44 Dose: 25 mg Documented By: KOFI Naloxone HCl (Naloxone 0.4 Mg/Ml Vial) 0.2 mg IV Q2MIN PRN PRN Reason: Opiate Reversal Ondansetron HCl (Ondansetron 4 Mg/2 Ml Inj) 4 mg IV Q8HR PRN PRN Reason: Nausea And Vomiting Oxybutynin Chloride (Oxybutynin 5 Mg Er Tab) 5 mg PO DAILY DARCY Oxybutynin Chloride (Oxybutynin 5 Mg Er Tab) 10 mg PO DAILY [facility] Vitamin D (Cholecalciferol (Vitamin D3) 400 Unit Tablet) 400 unit PO DAILY DARCY Discontinued Medications Apixaban (Apixaban 5 Mg Tablet) 5 mg PO NOW ONE Stop: 11/23/23 20:54 Last Admin: 11/23/23 21:03 Dose: 5 mg Documented By: ANGELICA Aspirin (Aspirin 81 Mg Chew Tab) 324 mg PO NOW ONE Stop: 11/23/23 19:10 Last Admin: 11/23/23 19:19 Dose: 324 mg Documented By: DANIELLE Diltiazem HCl (Diltiazem 5 Mg/Ml Sdv) 20 mg IV NOW ONE Stop: 11/23/23 19:39 Last Admin: 11/23/23 19:45 Dose: 20 mg Documented By: ANGELICA Etomidate (Etomidate 2 Mg/Ml 10 Ml Vial) 7.5 mg 0.1 mg/kg (7.5 mg) IV NOW ONE Stop: 11/23/23 19:20 Last Admin: 11/23/23 19:33 Dose: 7.5 mg Documented By: ANGELICA Etomidate (Etomidate 2 Mg/Ml 10 Ml Vial) 7.5 mg 0.1 mg/kg (7.5 mg) IV NOW ONE Stop: 11/23/23 21:55 Last Admin: 11/23/23 22:04 Dose: 7.5 mg Documented By: ANGELICA Heparin Sodium (Porcine) (Heparin 5,000 Unit/Ml Vial) 4,500 unit 60 unit/kg (4500 unit) IV NOW ONE Stop: 11/23/23 19:40 Last Admin: 11/23/23 19:46 Dose: 4,500 unit Documented By: ANGELICA DILTIAZEM (Diltiazem 125 Mg/125 Ml-D5w) 125 mg in 125 mls @ 5 mls/hr IV TITRATE DARCY; Protocol Last Titration: 11/23/23 20:54 Dose: Infused Documented By: Titration: 11/23/23 20:54 Dose: 0 mg/hr, 0 mls/hr Documented By: Titration: 11/23/23 20:08 Dose: 10 mg/hr, 10 mls/hr Documented By: Admin: 11/23/23 19:47 Dose: 5 mg/hr, 5 mls/hr Documented By: ANGELICA Heparin Sodium/Dextrose (Heparin Drip) 25,000 unit in 500 mls @ 17.962 mls/hr IV CONT DARCY; Protocol Last Titration: 11/23/23 20:55 Dose: Infused Documented By: RAISA Co-signed By: ANGELICA Titration: 11/23/23 20:55 Dose: 0 units/kg/hr, 0 mls/hr Documented By: ANGELICA Co-signed By: DANIELLE Admin: 11/23/23 19:47 Dose: 12 units/kg/hr, 17.962 mls/hr Documented By: ANGELICA Co-signed By: RAISA Amiodarone HCl/Dextrose (Nexterone) 150 mg in 100 mls @ 600 mls/hr IV NOW ONE; Protocol Stop: 11/23/23 21:02 Last Infusion: 11/23/23 21:46 Dose: Infused Documented By: Admin: 11/23/23 21:08 Dose: 600 mls/hr Documented By: ANGELICA Amiodarone HCl/Dextrose (Nexterone) 360 mg in 200 mls @ 33.333 mls/hr IV NOW ONE; Protocol Stop: 11/24/23 04:09 Last Titration: 11/23/23 23:42 Dose: 33.333 mls/hr, 33.33 mls/hr Documented By: Admin: 11/23/23 22:27 Dose: 33.333 mls/hr, 33.33 mls/hr Documented By: ANGELICA Sodium Chloride (Normal Saline 0.9%) 1,000 mls @ 1,000 mls/hr IV BOLUS ONE Stop: 11/23/23 20:29 Last Infusion: 11/23/23 20:30 Dose: Infused Documented By: Admin: 11/23/23 20:30 Dose: 1,000 mls/hr Documented By: ANGELICA Sodium Chloride (Normal Saline 0.9%) 1,000 mls @ 1,000 mls/hr IV BOLUS ONE Stop: 11/23/23 22:59 Last Admin: 11/23/23 22:45 Dose: 1,000 mls/hr Documented By: ANGELICA Metoprolol Tartrate (Metoprolol Ir 25 Mg Tablet) 25 mg PO NOW ONE Stop: 11/23/23 20:54 Last Admin: 11/23/23 21:03 Dose: 25 mg Documented By: ANGELICA Metoprolol Tartrate (Metoprolol Ir 25 Mg Tablet) 25 mg PO BID DARCY Reevaluation(s) Reevaluation #1: Patient remains in atrial fibrillation after amiodarone and metoprolol. Rate is now about 120. Discussed repeat cardioversion with the patient as recommended by Cardiology, she is agreeable. We did offer the option of an amiodarone drip. We will have to address her elevated D-dimer, she is already anticoagulated it may be reasonable to admit her to have CT angio Consultations Consultation #1: Discussed with Cardiology, Dr. Bundy. Advice as we transition anticoagulation to Eliquis or Lovenox. Recommends discontinuing Cardizem and giving a 150 mg amiodarone dose over 30 minutes. Can also give metoprolol 25 p.o.. Make a 2nd attempt at cardioversion following amiodarone. Following this, recommends amiodarone drip if atrial fibrillation persists. Consultation #2: D/W Dr Farr Hospitalist, accepts admisson. Request cardiology to consult Consultation #3: Dr Bundy recommends metoprolol tartrate 25 mg p.o. q.6 hours, continue amiodarone drip, continue anticoagulation echocardiogram in the morning morning hospitalist should request Cardiology consult if desired Vital Signs Vital signs: Vital Signs - 8 hr 11/23/23 20:55 11/23/23 20:55 11/23/23 21:00 Pulse Rate 141 H Respiratory Rate 12 Blood Pressure 122/62 149/63 H Pulse Oximetry 92 11/23/23 21:00 11/23/23 21:06 11/23/23 21:06 Pulse Rate 138 H 144 H Respiratory Rate 13 22 Blood Pressure 115/70 Pulse Oximetry 94 95 11/23/23 21:10 11/23/23 21:10 11/23/23 21:15 Pulse Rate 140 H Respiratory Rate 13 Blood Pressure 128/56 L 107/54 L Pulse Oximetry 94 11/23/23 21:15 11/23/23 21:19 11/23/23 21:19 Pulse Rate 142 H 136 H Respiratory Rate 14 19 Blood Pressure 126/58 L Pulse Oximetry 94 94 11/23/23 21:20 11/23/23 21:20 11/23/23 21:25 Pulse Rate 140 H Respiratory Rate 24 Blood Pressure 136/56 L 122/58 L Pulse Oximetry 94 11/23/23 21:25 11/23/23 21:30 11/23/23 21:30 Pulse Rate 136 H 134 H Respiratory Rate 14 12 Blood Pressure 130/62 Pulse Oximetry 94 93 11/23/23 21:35 11/23/23 21:35 11/23/23 21:40 Pulse Rate 138 H Respiratory Rate 19 Blood Pressure 108/61 123/65 Pulse Oximetry 95 11/23/23 21:40 11/23/23 21:45 11/23/23 21:45 Pulse Rate 127 H 123 H Respiratory Rate 13 17 Blood Pressure 100/55 L Pulse Oximetry 94 94 11/23/23 21:50 11/23/23 21:50 11/23/23 21:55 Pulse Rate 121 H Respiratory Rate 27 H Blood Pressure 115/61 126/63 Pulse Oximetry 11/23/23 21:55 11/23/23 21:58 11/23/23 22:00 Pulse Rate 124 H 124 H 125 H Respiratory Rate 22 16 19 Blood Pressure 116/64 Pulse Oximetry 95 96 95 11/23/23 22:00 11/23/23 22:05 11/23/23 22:05 Pulse Rate 126 H Respiratory Rate 14 Blood Pressure 116/64 113/58 L Pulse Oximetry 95 11/23/23 22:06 11/23/23 22:07 11/23/23 22:10 Pulse Rate 110 H 125 H Respiratory Rate 15 13 Blood Pressure 113/58 L 113/58 L 128/59 L Pulse Oximetry 94 94 11/23/23 22:10 11/23/23 22:15 11/23/23 22:15 Pulse Rate 125 H 124 H Respiratory Rate 13 13 Blood Pressure 125/60 Pulse Oximetry 94 94 11/23/23 22:16 11/23/23 22:20 11/23/23 22:20 Pulse Rate 120 H 127 H Respiratory Rate 14 18 Blood Pressure 117/67 Pulse Oximetry 95 11/23/23 22:25 11/23/23 22:25 11/23/23 22:30 Pulse Rate 122 H 124 H Respiratory Rate 16 26 H Blood Pressure 107/63 Pulse Oximetry 96 95 11/23/23 22:30 11/23/23 22:35 11/23/23 22:35 Pulse Rate 123 H Respiratory Rate 12 Blood Pressure 111/80 119/76 Pulse Oximetry 95 11/23/23 22:40 11/23/23 22:40 11/23/23 22:45 Pulse Rate 124 H 118 H Respiratory Rate 19 12 Blood Pressure 126/56 L Pulse Oximetry 94 95 11/23/23 22:45 11/23/23 22:50 11/23/23 22:50 Pulse Rate 126 H Respiratory Rate 17 Blood Pressure 107/62 122/59 L Pulse Oximetry 94 11/23/23 22:55 11/23/23 22:55 11/23/23 23:00 Pulse Rate 127 H Respiratory Rate 11 L Blood Pressure 124/58 L 118/57 L Pulse Oximetry 94 11/23/23 23:00 Pulse Rate 126 H Respiratory Rate 11 L Blood Pressure Pulse Oximetry 93 MDM - Chest Pain Lab Data 11/23/23 19:05 11/23/23 19:05 Labs: Lab Results 11/23/23 11/23/23 11/23/23 Range/Units 19:05 19:10 19:41 WBC 8.4 (4.5-11.0) X10^3/uL RBC 3.55 L (4.0-5.2) X10^6/uL Hgb 10.9 L (12.0-16.0) g/dL Hct 32.8 L (36-46) % MCV 92.6 (80-100) fL MCH 30.6 (26-34) PG MCHC 33.1 (30-36) % RDW 13.9 (11.6-14.8) % Plt Count 295 (150-400) X10^3/uL Neut % (Auto) 73.6 (50-75) % Lymph % (Auto) 19.2 L (25-40) % [place] % (Auto) 4.4 (3-14) % Eos % (Auto) 2.4 (2-4) % Baso % (Auto) 0.4 (0-2) % Neut # (Auto) 6200 (7905-2770) /uL Lymph # (Auto) 1600 (0231-8506) /uL [place] # (Auto) 400 (0-900) /uL Eos # (Auto) 200 (0-450) /uL Baso # (Auto) 0 (0-100) /uL PT 10.2 (9.4-12.5) SECONDS INR 0.9 (0.9-1.3) APTT 29 (25.1-36.5) SECONDS D-Dimer 1117 H (<500) ng/ml Sodium 134 L (137-145) mmol/L Potassium 3.4 (3.4-5.1) mmol/L Chloride 98 (98-107) mmol/L Carbon Dioxide 24 (22-32) mmol/L BUN 21 H (7-17) mg/dL Creatinine 0.91 (0.52-1.04) mg/dL Estimated GFR > 60 (>60) mL/min BUN/Creatinine Ratio 23.1 H (6-22) Glucose 127 H (80-110) mg/dL Calcium 10.1 (8.4-10.2) mg/dL Magnesium 1.8 (1.6-2.3) mg/dL Total Bilirubin 0.4 (0.2-1.3) mg/dL AST 25 (14-36) IU/L ALT 29 (<35) IU/L Alkaline Phosphatase 75 (38-126) U/L Total Creatine Kinase 72 (30-135) U/L Troponin I < 0.012 (0.01-0.034) ng/mL NT-Pro-B Natriuret Pep 1100 H (<125) pg/mL Total Protein 7.2 (6.3-8.2) g/dL Albumin 4.2 (3.5-5.0) g/dL Globulin 3.0 (1.7-4.1) g/dL Albumin/Globulin Ratio 1.4 (1.0-2.8) Lipase 38 (23-300) U/L TSH 1.28 (0.47-4.68) uIU/mL ECG Data Interpretation: Initial EKG shows atrial fibrillation with rapid ventricular response at 160. There is anterior ST-elevation with T-wave inversion in V6. I think this EKG is concerning for ischemia, patient will need to be cardioverted and EKG repeated MDM Narrative Medical decision making narrative: 73-year-old female presenting with new onset atrial fibrillation with rapid ventricular response. History would suggest that this occurred for only a couple hours prior to her arrival here. Had a nonspecific illness previous to this, this does not appear to be ischemic problem, nor does she have a major metabolic disturbance, nor is she hyperthyroid or withdrawing from alcohol. Pulmonary embolism was considered, D-dimer is mildly elevated. We are presently unable to do a CT angiogram at this facility, patient is anticoagulated for atrial fibrillation and anticipate that we will have the capability of doing a CT angio later this admission. She is admitted to the hospitalist service on an amiodarone infusion has not been anticoagulated on Eliquis and receiving metoprolol. Critical Care Time Critical Care Time Critical Care Time: Yes Total Critical Care Time: 40 Attestation: Patient was treated for atrial fibrillation with rapid ventricular response requiring immediate medication, repeated doses of medication, consultation with Cardiology x2. Critical care time is exclusive of time spent on separately billable procedures Discharge Plan Departure Patient Disposition: Admitted as Observation Clinical Impression: Atrial fibrillation with rapid ventricular response Admit Date/Time: 11/23/23 23:02 Admit Provider: Jeremías Anaya
[2023-11-23 19:33] LABS: INR 0.9 (0.9-1.3); Prothrombin Time 10.2 SECONDS (9.4-12.5)
[2023-11-23] MEDS: ETOMIDATE 2 MG/ML 10 ML VIAL 7.5 MG IV ×2 (19:33→22:04)
[2023-11-23 19:35] LABS: PTT Partial Thromboplastin Tim 29 SECONDS (25.1-36.5)
[2023-11-23 19:37] LABS: Alanine Aminotransferase 29 IU/L (<35); Albumin 4.2 g/dL (3.5-5.0); Albumin Globulin Ratio 1.4 (1.0-2.8); Alkaline Phosphatase 75 U/L (38-126); Aspartate Aminotransferase 25 IU/L (14-36); BUN Creatinine Ratio 23.1 (6-22); Bilirubin Total 0.4 mg/dL (0.2-1.3); Blood Urea Nitrogen 21 mg/dL (7-17); Calcium 10.1 mg/dL (8.4-10.2); Carbon Dioxide 24 mmol/L (22-32); Chloride 98 mmol/L (98-107); Creatine Kinase 72 U/L (30-135); Estimated Glomerular Filt Rate > 60 mL/min (>60); Glucose 127 mg/dL (80-110); HEMOLYSIS < 15 (0-50); Lipase 38 U/L (23-300); Magnesium 1.8 mg/dL (1.6-2.3); Potassium 3.4 mmol/L (3.4-5.1); Sodium 134 mmol/L (137-145); Total Protein 7.2 g/dL (6.3-8.2)
[2023-11-23] MEDS: dilTIAZem 5 MG/ML SDV 20 MG IV (19:45)
[2023-11-23] MEDS: HEPARIN 5,000 UNIT/ML VIAL 4500 UNIT IV (19:46)
[2023-11-23] MEDS: DILTIAZEM 125 MG/125 ML PIGGYBACK IV (19:47)
[2023-11-23] MEDS: HEPARIN DRIP 25,000 UNIT/500 ML IV.SOLN 17.962 UNIT IV (19:47)
[2023-11-23 19:49] LABS: Troponin I < 0.012 ng/mL (0.01-0.034)
[2023-11-23 19:55] LABS: D Dimer 1117 ng/ml (<500)
[2023-11-23] MEDS: SODIUM CHLORIDE 0.9% 1,000 ML 1000 ML IV ×2 (20:30→22:45)
[2023-11-23 20:37] LABS: Thyroid Stimulating Hormone 1.28 uIU/mL (0.47-4.68)
--- NOTE | 2023-11-23 20:52 | PC.NURSE ---
patient is not responding to cardizem her rate is still above 130. Provider notified and new orders are in.
[2023-11-23] MEDS: APIXABAN 5 MG TABLET PO (21:03)
[2023-11-23] MEDS: METOPROLOL IR 25 MG TABLET PO (21:03)
[2023-11-23] MEDS: AMIODARONE 150 MG/100 ML PIGGYBACK 600 MG IV (21:08)
[2023-11-23] MEDS: AMIODARONE 360 MG/200 ML PIGGYBACK 33.33 MG IV (22:27)
--- NOTE | 2023-11-23 23:08 | DI.ECHO.S_ITS ---
[facility] +---------+ [facility] +---------+ : : [address] : [place] [address] : : : : [id number] : : : : Phone: [phone] Echocardiogram Report + + :Name: RENITA RICHEY Study Date: 11/24/2023 Height: 64 in : :[facility] ReadingLocation: Weight: 165 lb : : Gender: Female BSA: 1.8 m2 : :: 1950 Age: 73 yrs BP: 129/77 mmHg: :Reason For Study: CHF EXACERBATION : :Ordering Physician: DORON, : :MARY LOU Performed By: Tamanna Batista : :Referring: MARY LOU SAL : + + Interpretation Summary The ejection fraction is estimated to be 60-65%. Left ventricular wall motion is normal. There is mild mitral regurgitation. There is mild tricuspid regurgitation. The right ventricular systolic pressure is estimated to be at least 33 mmHg based on an estimated right atrial pressure of 3 mm Hg. Procedure: A two-dimensional transthoracic echocardiogram with color flow and Doppler was performed. The study quality was technically difficult. Comparison is made with the echocardiogram of 12/15/2022. The patient was in atrial fibrillation with heart rates between 67-114 bpm during the exam. Left Ventricle: The left ventricle is normal in size and wall thickness. The ejection fraction is estimated to be 60-65%. There has been no significant change since the previous exam. Left ventricular wall motion is normal. Diastolic function could not be accurately assessed due to atrial fibrillation. Right Ventricle: The right ventricle is not well visualized. Atria: The left atrium is mildly dilated. Right atrial size is normal. There is no Doppler evidence for an interatrial shunt. Mitral Valve: The mitral valve leaflets appear mildly thickened, but open well. There is mild mitral annular calcification. There is mild mitral regurgitation. Aortic Valve: The aortic valve is not well visualized. There is no aortic valve stenosis. No aortic regurgitation is present. Tricuspid Valve: The tricuspid valve is normal in structure and function. There is mild tricuspid regurgitation. The right ventricular systolic pressure is estimated to be at least 33 mmHg based on an estimated right atrial pressure of 3 mm Hg. Pulmonic Valve: The pulmonic valve is not well visualized. There is no pulmonic valvular regurgitation. Great Vessels: The aortic root is normal size. The dimensions of the ascending aorta are normal. The IVC is of normal diameter and collapses greater than 50% with a sniff. This suggests a low right atrial pressure of 3 mm Hg. Pericardium/ Pleura There is no pericardial effusion. There is no pleural effusion. MMode/2D Measurements & Calculations LVIDd: 4.3 cm LVOT diam: 2.1 cm LVIDs: 3.0 cm Ao root diam: 3.2 cm FS: 30.3 % asc Aorta Diam: 2.9 cm EPSS: 0.54 cm IVSd: 0.84 cm LVPWd: 1.00 cm LV denton. diameter/BSA (cm/m^2): 2.4 LV sys. diameter/BSA (cm/m^2): 1.7 LA A2 area: 20.9 cm2 RA long axis: 4.0 cm LA A4 area: 19.2 cm2 RA area: 13.4 cm2 LA length (vol): 5.2 cm RA vol: 38.0 ml LA vol: 65.3 ml RA : 21.1 ml/m2 LA vol index: 36.2 ml/m2 IVC diam: 1.8 cm Doppler Measurements & Calculations Ao V2 max: 131.4 cm/sec LVOT Max Salo: 70.9 cm/sec Ao V2 mean: 97.0 cm/sec LV V1 max P.0 mmHg Ao max P.9 mmHg LV V1 VTI: 19.0 cm Ao mean P.0 mmHg JIN(I,D): 1.8 cm2 Ao V2 VTI: 35.8 cm JIN(V,D): 1.8 cm2 sev ratio: 0.53 JIN indexed to BSA (cm^2/m^2): 0.97 MV E max salo: 116.2 cm/sec TR max salo: 277.5 cm/sec MV A max salo: 100.5 cm/sec TR max P.8 mmHg MV E/A: 1.2 PA V2 max: 90.6 cm/sec Med Peak E' Salo: 7.3 cm/sec PA V2 mean: 71.7 cm/sec E/E' med: 15.9 PA mean P.2 mmHg Lat Peak E' Salo: 7.9 cm/sec PA pr(Accel): 31.0 mmHg E/E' lat: 14.7 E/e' average: 15.3 MV dec time: 0.24 sec SV(LVOT): 62.7 ml Reading Physician:01:58 PM
--- NOTE | 2023-11-23 23:23 | DI.CT.S_ITS ---
PROCEDURE: CT ANGIO CHEST PE PROTOCOL INDICATIONS: Chest pain, please evaluate for PE TECHNIQUE: After the administration of intravenous contrast, 2 mm thick sections acquired from the pulmonary apices to the posterior costophrenic angles. 3-dimensional maximum intensity projection (MIP) coronal and sagittal reformats were then acquired through the thorax. For radiation dose reduction, the following was used: automated exposure control, adjustment of mA and/or kV according to patient size. COMPARISON: [facility], CT, CHEST ANGIO-PE, 05/14/2015, 12:25. [facility], CR, XR CHEST 1V, 11/23/2023, 19:30. FINDINGS: Image quality: Diagnostic. Pulmonary arteries: Pulmonary arteries are normal in size, and demonstrate no intraluminal filling defects to suggest central pulmonary embolism. Lower Neck: No enlarged lymph nodes. Thyroid: No thyroid nodules which require sonographic follow up, per consensus guidelines. Axillae: No enlarged lymph nodes. Chest Wall: Unremarkable. Bones: Unremarkable. Lungs and Pleura: Multiple foci of poorly defined ground-glass opacity can be seen. These are overall worst involving the left upper lobe. Mild areas of subpleural fibrosis can be seen. Small bilateral pleural effusions are seen. No pneumothorax is seen. Heart: Heart size is normal. No pericardial effusion. Thoracic Vessels: No aortic aneurysm. Mediastinum and Ayana: No enlarged lymph nodes. Esophagus: No wall thickening. There is a small hiatal hernia. Upper Abdomen: Visualized upper abdomen solid organs and bowel loops appear normal. IMPRESSION: No pulmonary embolus. Multiple foci of poorly defined ground-glass opacity can be seen. Although nonspecific, concern is raised for atypical/viral infection. Small bilateral pleural effusions are seen. Additional findings: Small hiatal hernia Dictated by: Nayan Moise M.D. on 11/24/2023 at 12:34 Approved by: Nayan Moise M.D. on 11/24/2023 at 12:37
--- NOTE | 2023-11-23 23:42 | PC.NURSE ---
Patient being transferred upstairs. This nurse accompanying patient. Amiodarone currently running at 33.333mls/hr.
[2023-11-23 23:47] LABS: NT-proBNP (BNP-Adult 18+) 1100 pg/mL (<125)
[2023-11-24] VITALS (36 sets, daily range): BP systolic 83–170; BP diastolic 50–104; PULSE 57–128; RESP 9–33; TEMP 36.7–37.3; O2SAT 90–97; BMI 29.5
[2023-11-24] MEDS: MELATONIN 3 MG TABLET 6 MG PO (00:44)
[2023-11-24] MEDS: METOPROLOL IR 50 MG TABLET 25 MG PO ×3 (00:44→13:14)
[2023-11-24] MEDS: SODIUM CHLORIDE 0.9% 1,000 ML 100 ML IV (00:45)
--- NOTE | 2023-11-24 01:19 | PM.HP.1 ---
History of Present Illness History of Present Illness Chief complaint: high heart rate, syncope Narrative: 73 years old female with history of hypertension, hyperlipidemia, depression, MS presented to the ER with palpitations started all of a sudden after dinner. The patient also reports some mild chest tightness and lightheadedness during the event. Denies any symptoms like this before. Denies any fever, shortness of breath, cough, nausea, vomiting, abdominal pain, diarrhea or dysuria. Denies any smoking, alcohol abuse or drug abuse. Family history with father with [place] in early 40s. Denies any cardiac workup in the past. In the ER she was found to have atrial fibrillation with RVR and had multiple unsuccessful cardioversions. [employer] was contacted and recommended admission, started her on amiodarone drip, Eliquis and metoprolol. Initial labs shows WBC 8.4, H&H 10.9/32.8, platelets 295, INR 0.9, D-dimer 1117, sodium 134, potassium 3.4, calcium 10.1, magnesium 1.8, creatinine 0.91, blood sugar 127, LFTs normal, TSH 1.28, EKG shows atrial fibrillation with RVR at rate of 160, anterior ST elevation with T wave inversions in V6. [facility] Social History household members: spouse Smoking Status: Never smoker Meds Home Medications and Allergies Home Medications Medication Instructions Recorded Confirmed Type BUPROPION HCL (WELLBUTRIN XL) 300 mg PO QDAY ##0 05/20/13 09/17/21 History Multimineral/Multivitamin 1 tab PO QDAY ##0 05/20/13 09/17/21 History (THERAGRAN M ) atorvastatin 10 mg tablet (Lipitor) 10 mg PO HS ##0 05/20/13 09/17/21 History calcium carbonate 500 mg-vitamin 500 mg PO [facility] ##0 05/20/13 09/17/21 History D3 5 mcg (200 unit) tablet (Oyster Shell Calcium-Vitamin D3) melatonin 3 mg tablet 6 mg PO HS ##0 05/20/13 09/17/21 History oxybutynin chloride 5 mg 5 mg PO QDAY ##0 05/20/13 09/17/21 History tablet,extended release 24 hr (Ditropan XL) losartan 50 mg tablet 50 mg PO DAILY 09/17/21 09/17/21 History trospium 60 mg capsule,extended 60 mg PO BID 09/17/21 09/17/21 History release 24 hr Allergies Allergy/AdvReac Type Severity Reaction Status Date / Time codeine Allergy Severe Hives and Verified 08/23/23 12:10 nausea/vomiting Review of Systems Review of Systems ROS: Yes All systems reviewed with the patient and are negative except as otherwise documented Constitutional Constitutional: Reports as per HPI and Reports system reviewed and no additional complaints, except as documented Eyes Eyes: Reports as per HPI and Reports system reviewed and no additional complaints, except as documented ENT Ears, Nose, Mouth, and Throat: Yes as per HPI and Yes system reviewed and no additional complaints, except as documented Cardiovascular Cardiovascular: Reports system reviewed and no additional complaints, except as documented Respiratory Respiratory: Reports system reviewed and no additional complaints, except as documented Gastrointestinal Gastrointestinal: Reports system reviewed and no additional complaints, except as documented Genitourinary Genitourinary: Reports system reviewed and no additional complaints, except as documented Musculoskeletal Musculoskeletal: Reports system reviewed and no additional complaints, except as documented, Reports abnormal gait and Reports numbness Neurologic Neurologic: Reports system reviewed and no additional complaints, except as documented, Reports abnormal gait, Reports confusion and Reports numbness Psychiatric Psychiatric: Reports system reviewed and no additional complaints, except as documented and Reports confusion Exam Vital Signs (past 8 hours): - 11/23/23 18:48 11/23/23 18:57 11/23/23 18:58 Temperature 97.1 F L Pulse Rate 155 H 162 H 158 H Respiratory Rate 19 11 L 11 L Blood Pressure 112/77 Pulse Oximetry 98 84 L 96 Oxygen Delivery Method Room Air Oxygen Flow Rate 11/23/23 18:58 11/23/23 19:00 11/23/23 19:00 Temperature Pulse Rate 162 H Respiratory Rate 25 H Blood Pressure 207/89 H 142/63 H Pulse Oximetry 89 L Oxygen Delivery Method Oxygen Flow Rate 11/23/23 19:30 11/23/23 19:30 11/23/23 19:30 Temperature Pulse Rate 135 H 161 H Respiratory Rate 14 28 H Blood Pressure 152/88 H 152/88 H Pulse Oximetry 18 L 96 Oxygen Delivery Method Oxygen Flow Rate 11/23/23 19:35 11/23/23 19:38 11/23/23 19:39 Temperature Pulse Rate 147 H 151 H Respiratory Rate 20 20 Blood Pressure 143/80 H 143/80 H Pulse Oximetry 96 Oxygen Delivery Method Oxygen Flow Rate 11/23/23 19:39 11/23/23 19:45 11/23/23 19:45 Temperature Pulse Rate 153 H 152 H Respiratory Rate 16 Blood Pressure 156/80 H 132/79 Pulse Oximetry 95 Oxygen Delivery Method Oxygen Flow Rate 11/23/23 19:45 11/23/23 19:46 11/23/23 19:46 Temperature Pulse Rate 157 H 154 H Respiratory Rate 16 18 Blood Pressure 159/80 H Pulse Oximetry 97 96 Oxygen Delivery Method Oxygen Flow Rate 11/23/23 19:51 11/23/23 19:51 11/23/23 20:00 Temperature Pulse Rate 155 H 128 H Respiratory Rate 26 H 28 H Blood Pressure 160/87 H Pulse Oximetry 96 97 Oxygen Delivery Method Oxygen Flow Rate 11/23/23 20:02 11/23/23 20:02 11/23/23 20:55 Temperature Pulse Rate 126 H 141 H Respiratory Rate 21 12 Blood Pressure 111/73 Pulse Oximetry 97 92 Oxygen Delivery Method Oxygen Flow Rate 11/23/23 20:55 11/23/23 21:00 11/23/23 21:00 Temperature Pulse Rate 138 H Respiratory Rate 13 Blood Pressure 122/62 149/63 H Pulse Oximetry 94 Oxygen Delivery Method Oxygen Flow Rate 11/23/23 21:06 11/23/23 21:06 11/23/23 21:10 Temperature Pulse Rate 144 H 140 H Respiratory Rate 22 13 Blood Pressure 115/70 Pulse Oximetry 95 94 Oxygen Delivery Method Oxygen Flow Rate 11/23/23 21:10 11/23/23 21:15 11/23/23 21:15 Temperature Pulse Rate 142 H Respiratory Rate 14 Blood Pressure 128/56 L 107/54 L Pulse Oximetry 94 Oxygen Delivery Method Oxygen Flow Rate 11/23/23 21:19 11/23/23 21:19 11/23/23 21:20 Temperature Pulse Rate 136 H 140 H Respiratory Rate 19 24 Blood Pressure 126/58 L Pulse Oximetry 94 94 Oxygen Delivery Method Oxygen Flow Rate 11/23/23 21:20 11/23/23 21:25 11/23/23 21:25 Temperature Pulse Rate 136 H Respiratory Rate 14 Blood Pressure 136/56 L 122/58 L Pulse Oximetry 94 Oxygen Delivery Method Oxygen Flow Rate 11/23/23 21:30 11/23/23 21:30 11/23/23 21:35 Temperature Pulse Rate 134 H Respiratory Rate 12 Blood Pressure 130/62 108/61 Pulse Oximetry 93 Oxygen Delivery Method Oxygen Flow Rate 11/23/23 21:35 11/23/23 21:40 11/23/23 21:40 Temperature Pulse Rate 138 H 127 H Respiratory Rate 19 13 Blood Pressure 123/65 Pulse Oximetry 95 94 Oxygen Delivery Method Oxygen Flow Rate 11/23/23 21:45 11/23/23 21:45 11/23/23 21:50 Temperature Pulse Rate 123 H Respiratory Rate 17 Blood Pressure 100/55 L 115/61 Pulse Oximetry 94 Oxygen Delivery Method Oxygen Flow Rate 11/23/23 21:50 11/23/23 21:55 11/23/23 21:55 Temperature Pulse Rate 121 H 124 H Respiratory Rate 27 H 22 Blood Pressure 126/63 Pulse Oximetry 95 Oxygen Delivery Method Oxygen Flow Rate 11/23/23 21:58 11/23/23 22:00 11/23/23 22:00 Temperature Pulse Rate 124 H 125 H Respiratory Rate 16 19 Blood Pressure 116/64 116/64 Pulse Oximetry 96 95 Oxygen Delivery Method Oxygen Flow Rate 11/23/23 22:05 11/23/23 22:05 11/23/23 22:06 Temperature Pulse Rate 126 H 110 H Respiratory Rate 14 15 Blood Pressure 113/58 L 113/58 L Pulse Oximetry 95 94 Oxygen Delivery Method Oxygen Flow Rate 11/23/23 22:07 11/23/23 22:10 11/23/23 22:10 Temperature Pulse Rate 125 H 125 H Respiratory Rate 13 13 Blood Pressure 113/58 L 128/59 L Pulse Oximetry 94 94 Oxygen Delivery Method Oxygen Flow Rate 11/23/23 22:15 11/23/23 22:15 11/23/23 22:16 Temperature Pulse Rate 124 H 120 H Respiratory Rate 13 14 Blood Pressure 125/60 Pulse Oximetry 94 Oxygen Delivery Method Oxygen Flow Rate 11/23/23 22:20 11/23/23 22:20 11/23/23 22:25 Temperature Pulse Rate 127 H 122 H Respiratory Rate 18 16 Blood Pressure 117/67 Pulse Oximetry 95 96 Oxygen Delivery Method Oxygen Flow Rate 11/23/23 22:25 11/23/23 22:30 11/23/23 22:30 Temperature Pulse Rate 124 H Respiratory Rate 26 H Blood Pressure 107/63 111/80 Pulse Oximetry 95 Oxygen Delivery Method Oxygen Flow Rate 11/23/23 22:35 11/23/23 22:35 11/23/23 22:40 Temperature Pulse Rate 123 H Respiratory Rate 12 Blood Pressure 119/76 126/56 L Pulse Oximetry 95 Oxygen Delivery Method Oxygen Flow Rate 11/23/23 22:40 11/23/23 22:45 11/23/23 22:45 Temperature Pulse Rate 124 H 118 H Respiratory Rate 19 12 Blood Pressure 107/62 Pulse Oximetry 94 95 Oxygen Delivery Method Oxygen Flow Rate 11/23/23 22:50 11/23/23 22:50 11/23/23 22:55 Temperature Pulse Rate 126 H 127 H Respiratory Rate 17 11 L Blood Pressure 122/59 L Pulse Oximetry 94 94 Oxygen Delivery Method Oxygen Flow Rate 11/23/23 22:55 11/23/23 23:00 11/23/23 23:00 Temperature Pulse Rate 126 H Respiratory Rate 11 L Blood Pressure 124/58 L 118/57 L Pulse Oximetry 93 Oxygen Delivery Method Oxygen Flow Rate 11/23/23 23:05 11/23/23 23:05 11/23/23 23:10 Temperature Pulse Rate 124 H Respiratory Rate 11 L Blood Pressure 114/67 117/56 L Pulse Oximetry 93 Oxygen Delivery Method Oxygen Flow Rate 11/23/23 23:10 11/23/23 23:15 11/23/23 23:15 Temperature Pulse Rate 128 H 126 H Respiratory Rate 12 17 Blood Pressure 118/57 L Pulse Oximetry 93 94 Oxygen Delivery Method Oxygen Flow Rate 11/23/23 23:20 11/23/23 23:20 11/23/23 23:25 Temperature Pulse Rate 125 H Respiratory Rate 10 L Blood Pressure 124/56 L 117/62 Pulse Oximetry 92 Oxygen Delivery Method Oxygen Flow Rate 11/23/23 23:25 11/23/23 23:30 11/23/23 23:30 Temperature Pulse Rate 125 H 123 H Respiratory Rate 10 L 17 Blood Pressure 106/66 Pulse Oximetry 92 95 Oxygen Delivery Method Oxygen Flow Rate 11/23/23 23:35 11/23/23 23:35 11/23/23 23:40 Temperature Pulse Rate 124 H 125 H Respiratory Rate 15 11 L Blood Pressure 110/59 L Pulse Oximetry 93 92 Oxygen Delivery Method Oxygen Flow Rate 11/23/23 23:40 11/23/23 23:45 11/23/23 23:45 Temperature Pulse Rate 125 H Respiratory Rate 11 L Blood Pressure 116/60 105/56 L Pulse Oximetry 92 Oxygen Delivery Method Oxygen Flow Rate 11/23/23 23:53 11/23/23 23:53 11/23/23 23:55 Temperature Pulse Rate 115 H Respiratory Rate 16 Blood Pressure 121/58 L 106/54 L Pulse Oximetry 94 Oxygen Delivery Method Room Air Oxygen Flow Rate 11/23/23 23:55 11/24/23 00:10 Temperature 99.1 F Pulse Rate 127 H 122 H Respiratory Rate 17 16 Blood Pressure 118/62 Pulse Oximetry 95 94 Oxygen Delivery Method Room Air Oxygen Flow Rate 0 Oxygen Delivery Method Room Air Oxygen Flow Rate 0 Const General: cooperative, comfortable and well developed Orientation: alert and oriented x3 HENMT Head: normal to inspection, normocephalic and atraumatic Face and sinus: normal facial exam Mouth: oral mucosae normal and moist mucous membranes Throat: posterior oropharynx normal Eyes General: appearance normal, both eyes and all related structures Pupils: PERRL EOM: EOM intact bilaterally Neck Neck: normal visual inspection and full ROM Chest Chest: normal inspection of the chest Resp Effort & Inspection: normal respiratory effort and able to speak in complete sentences Auscultation: clear to auscultation bilaterally Cardio Palpation: normal PMI Rate: regular rate Rhythm: regular rhythm Heart Sounds: S1 normal and S2 normal GI Inspection: normal to inspection Palpation: soft and no hepatosplenomegaly Auscultation: normal bowel sounds Skin General: no rashes or lesions noted Lesions: no lesions Rashes: no rashes Trauma: no lacerations or abrasions Neuro General: patient alert, patient awake, patient oriented x3 and no focal motor deficits Cranial Nerves: CN's II-XI intact bilaterally Cognition: normal cognition Speech: speech normal Gait: normal gait Motor: muscle tone normal throughout Sensory Exam: no sensory deficits noted Extrem General: full ROM and no calf tenderness Psych Appearance: grossly normal Mental Status: mental status grossly normal Speech and Movement: speech and movement normal Objective Labs 11/23/23 19:05 11/23/23 19:05 Labs: Laboratory Results - last 24 hr 11/23/23 11/23/23 11/23/23 19:05 19:10 19:41 WBC 8.4 RBC 3.55 L Hgb 10.9 L Hct 32.8 L MCV 92.6 MCH 30.6 MCHC 33.1 RDW 13.9 Plt Count 295 Neut % (Auto) 73.6 Lymph % (Auto) 19.2 L [place] % (Auto) 4.4 Eos % (Auto) 2.4 Baso % (Auto) 0.4 Neut # (Auto) 6200 Lymph # (Auto) 1600 [place] # (Auto) 400 Eos # (Auto) 200 Baso # (Auto) 0 PT 10.2 INR 0.9 APTT 29 D-Dimer 1117 H Sodium 134 L Potassium 3.4 Chloride 98 Carbon Dioxide 24 BUN 21 H Creatinine 0.91 Estimated GFR > 60 BUN/Creatinine Ratio 23.1 H Glucose 127 H Calcium 10.1 Magnesium 1.8 Total Bilirubin 0.4 AST 25 ALT 29 Alkaline Phosphatase 75 Total Creatine Kinase 72 Troponin I < 0.012 NT-Pro-B Natriuret Pep 1100 H Total Protein 7.2 Albumin 4.2 Globulin 3.0 Albumin/Globulin Ratio 1.4 Lipase 38 TSH 1.28 Assessment & Plan Assessment & Plan narrative: New onset A. Fib with RVR. Patient denies history of previous atrial fibrillation. Multiple unsuccessful cardioversions in the ED. Electrolytes normal. TSH normal. Significantly elevated D-dimer. -Admitted patient in PCU -continue Amiodarone drip -Start Eliquis therapeutic dose for now -Start metoprolol 25 mg po every 6 hours -CT scan of the chest with contrast to rule out PE. -Monitor patient's electrolyte closely. Keep K > 4, Mg > 2 -Check patient's cardiac enzymes, -Check echocardiogram -Cardiology consult in the morning Hyperlipidemia. -Restart Lipitor, check lipids Hypertension. -Restart losartan MS and overreactive bladder. -Restart Ditropan XL, trospium and gabapentin Time Spent With Patient Time with patient: 50 to 69 minutes with 50% spent counseling/coordinating care Quality VTE Deep Vein Thrombosis/Pulmonary Embolism Present on Admission: No MIPS - Admit I confirm the patient?s Advance Care Plan is present, Code status is documented, Surrogate decision maker is in patient?s record [If Yes, STOP here]: Yes MIPS - Meds 'Current medications' to include all prescriptions, [id number] products, herbals, cannabis/cannabidiol products, and vitamin/mineral/dietary (nutritional) supplements. I have utilized all available resources to obtain, update, or review the patient?s current medications. [If Yes, STOP here]: Yes
[2023-11-24 01:35] LABS: MRSA (Nasal) PCR Not Detected (Not Detect)
[2023-11-24] MEDS: AMIODARONE 360 MG/200 ML PIGGYBACK 16.7 MG IV (04:27)
[2023-11-24 04:34] LABS: Add Manual Diff / Slide Review NO; Basophils Absolute Auto 100 /uL (0-100); Basophils Percent Auto 1.2 % (0-2); Eosinophils Absolute Auto 200 /uL (0-450); Eosinophils Percent Auto 2.8 % (2-4); Hematocrit 27.6 % (36-46); Hemoglobin 9.4 g/dL (12.0-16.0); Lymphocytes Absolute Auto 1300 /uL (1100-4500); Lymphocytes Percent Auto 22.1 % (25-40); Mean Corpuscular Hemoglobin 31.8 PG (26-34); Mean Corpuscular Volume 93.6 fL (80-100); Monocytes Absolute Auto 700 /uL (0-900); Monocytes Percent Auto 11.6 % (3-14); Neutrophils Absolute Auto 3600 /uL (1500-7000); Neutrophils Percent Auto 62.3 % (50-75); Platelet Count 229 X10^3/uL (150-400); Red Blood Cell Count 2.95 X10^6/uL (4.0-5.2); Red Cell Distribution Width 13.6 % (11.6-14.8); White Blood Cell Count 5.7 X10^3/uL (4.5-11.0)
[2023-11-24 04:48] LABS: Magnesium 1.8 mg/dL (1.6-2.3)
[2023-11-24 05:01] LABS: Troponin I < 0.012 ng/mL (0.01-0.034)
--- NOTE | 2023-11-24 07:37 | PC.NURSE ---
Admit/[employer]ering [employer]ician Note-Patient admitted to ICU room 228 at 2355. A/Ox4, fatigued. A-fib RVR 110-120, amiodarone infusing per protocol. Non-productive barking cough, SpO2 >94%, fine crackles bases, EKG repeated for worsening chest pressure, no changes, resolved when patient converted at 0630. Echo completed.
[2023-11-24] MEDS: CHOLECALCIFEROL (VITAMIN D3) 400 UNIT TABLET PO (09:12)
[2023-11-24] MEDS: APIXABAN 5 MG TABLET 10 MG PO (09:12)
[2023-11-24] MEDS: buPROPion XL 150 MG TAB 300 MG PO (09:12)
[2023-11-24] MEDS: CALCIUM CARBONATE 500 MG TAB PO (09:12)
[2023-11-24] MEDS: LOSARTAN 50 MG TABLET PO (09:13)
[2023-11-24] MEDS: ASPIRIN EC 81 MG TABLET PO (09:13)
[2023-11-24] MEDS: OXYBUTYNIN 5 MG ER TAB 10 MG PO (09:13)
[2023-11-24] MEDS: DIMETHYL FUMARATE 240 MG 240 EACH PO (09:18)
[2023-11-24] MEDS: MULTIVITAMIN 1 TABLET 1 TAB PO (09:57)
--- NOTE | 2023-11-24 10:16 | PM.HP.1 ---
History of Present Illness History of Present Illness Date Patient Seen: 11/24/23 Time Patient Seen: 10:17 Date of Onset of Symptoms: 11/23/23 Chief complaint: high heart rate, syncope Narrative: The patient is a 73-year-old female with history of hypertension, hyperlipidemia, depression, and MS who presented with palpitations and tachycardia last evening after dinner. She also noted some chest tightness on recent pleuritic chest pain. She was sick several days ago with fatigue and pleuritic chest pain as well as a dry cough. She denies any fevers. She also denies any vomiting, exertional chest pain, orthopnea, or leg edema. She was seen by Cardiology a year ago for a general checkup and had a negative stress test as well as a normal echo. In the emergency department last evening she was found to have atrial fibrillation with rapid response and had multiple unsuccessful cardioversion attempts. The emergency physician contacted Cardiology who recommended admission and an amiodarone drip as well as Eliquis and metoprolol. The patient did respond to the amiodarone infusion with a cardioversion to sinus rhythm on the morning of November 24 at 6:30 a.m. Chest x-ray reveals pulmonary edema, troponin is normal, D-dimer is elevated. [facility] Social History household members: spouse Smoking Status: Never smoker alcohol intake: current Meds Home Medications and Allergies Home Medications Medication Instructions Recorded Confirmed Type BUPROPION HCL (WELLBUTRIN XL) 300 mg PO QDAY ##0 05/20/13 11/24/23 History Multimineral/Multivitamin 1 tab PO QDAY ##0 05/20/13 11/24/23 History (THERAGRAN M ) atorvastatin 10 mg tablet (Lipitor) 20 mg PO HS ##0 05/20/13 11/24/23 History calcium carbonate 500 mg-vitamin 500 mg PO [facility] ##0 05/20/13 11/24/23 History D3 5 mcg (200 unit) tablet (Oyster Shell Calcium-Vitamin D3) melatonin 3 mg tablet 6 mg PO HS ##0 05/20/13 11/24/23 History losartan 50 mg tablet 50 mg PO DAILY 09/17/21 11/24/23 History trospium 60 mg capsule,extended 60 mg PO BID 09/17/21 11/24/23 History release 24 hr dimethyl fumarate 240 mg 240 mg PO BID 11/24/23 11/24/23 History capsule,delayed release gabapentin 300 mg capsule 900 mg PO ONCE PM 11/24/23 11/24/23 History trospium 60 mg capsule,extended 60 mg PO BID 11/24/23 11/24/23 History release 24 hr Allergies Allergy/AdvReac Type Severity Reaction Status Date / Time codeine Allergy Severe Hives and Verified 08/23/23 12:10 nausea/vomiting Review of Systems Review of Systems Narrative: All else reviewed and otherwise unremarkable except as noted in history and physical. Exam Vital Signs (past 8 hours): - 11/24/23 02:30 11/24/23 03:00 11/24/23 03:00 Temperature Pulse Rate 109 H 108 H Respiratory Rate 13 13 Blood Pressure 112/69 Pulse Oximetry 93 90 L Oxygen Delivery Method Oxygen Flow Rate 11/24/23 03:30 11/24/23 04:00 11/24/23 04:00 Temperature Pulse Rate 100 H Respiratory Rate 15 Blood Pressure 121/68 Pulse Oximetry 93 Oxygen Delivery Method Room Air Oxygen Flow Rate 11/24/23 04:00 11/24/23 04:30 11/24/23 05:00 Temperature 98.6 F Pulse Rate 108 H 104 H 102 H Respiratory Rate 16 16 14 Blood Pressure Pulse Oximetry 93 94 94 Oxygen Delivery Method Oxygen Flow Rate 0 11/24/23 05:00 11/24/23 05:30 11/24/23 06:00 Temperature Pulse Rate 106 H 111 H Respiratory Rate 14 22 Blood Pressure 126/63 Pulse Oximetry 94 93 Oxygen Delivery Method Oxygen Flow Rate 11/24/23 06:00 11/24/23 06:30 11/24/23 07:00 Temperature Pulse Rate 111 H 72 Respiratory Rate 19 33 H Blood Pressure 120/77 Pulse Oximetry 93 94 Oxygen Delivery Method Oxygen Flow Rate 11/24/23 07:30 11/24/23 08:00 11/24/23 09:13 Temperature 98.3 F Pulse Rate 66 64 Respiratory Rate 13 18 Blood Pressure 156/69 H 170/72 H Pulse Oximetry 94 94 Oxygen Delivery Method Oxygen Flow Rate 0 11/24/23 10:00 11/24/23 10:00 11/24/23 10:02 Temperature Pulse Rate 59 L 58 L Respiratory Rate 21 18 Blood Pressure 146/66 H Pulse Oximetry 95 95 Oxygen Delivery Method Oxygen Flow Rate 11/24/23 10:02 Temperature Pulse Rate Respiratory Rate Blood Pressure 146/66 H Pulse Oximetry Oxygen Delivery Method Oxygen Flow Rate Oxygen Delivery Method Room Air Oxygen Flow Rate 0 Narrative Exam Narrative: NAD, fluent speech, flat affect. Normocephalic skull. Oropharynx with normal mucosa, no facial droop. EOMI, conjugate gaze, anicteric sclera. Neck is supple, without adenopathy, midline trachea. Lungs are clear, normal rate and effort. Heart is regular, without murmur. Abdomen is flat and nondistended. Extremities are free of edema. Good radial pulses. Skin is free of rash or lesions. Joints are unremarkable, no deformities noted. Objective ECG Impression: AF with RVR Imaging Chest x-ray: My impression: Mild pulmonary edema. Radiologist's impression: 1. Mildly increased pulmonary vascularity, left greater than right, suggesting mild asymmetric pulmonary edema. Labs 11/24/23 04:00 11/23/23 19:05 Labs: Laboratory Results - last 24 hr 11/23/23 11/23/23 11/23/23 19:05 19:10 19:41 WBC 8.4 RBC 3.55 L Hgb 10.9 L Hct 32.8 L MCV 92.6 MCH 30.6 MCHC 33.1 RDW 13.9 Plt Count 295 Neut % (Auto) 73.6 Lymph % (Auto) 19.2 L [place] % (Auto) 4.4 Eos % (Auto) 2.4 Baso % (Auto) 0.4 Neut # (Auto) 6200 Lymph # (Auto) 1600 [place] # (Auto) 400 Eos # (Auto) 200 Baso # (Auto) 0 PT 10.2 INR 0.9 APTT 29 D-Dimer 1117 H Sodium 134 L Potassium 3.4 Chloride 98 Carbon Dioxide 24 BUN 21 H Creatinine 0.91 Estimated GFR > 60 BUN/Creatinine Ratio 23.1 H Glucose 127 H Calcium 10.1 Magnesium 1.8 Total Bilirubin 0.4 AST 25 ALT 29 Alkaline Phosphatase 75 Total Creatine Kinase 72 Troponin I < 0.012 NT-Pro-B Natriuret Pep 1100 H Total Protein 7.2 Albumin 4.2 Globulin 3.0 Albumin/Globulin Ratio 1.4 Lipase 38 TSH 1.28 Nasal Screen MRSA (PCR) 11/24/23 11/24/23 00:00 04:00 WBC 5.7 RBC 2.95 L Hgb 9.4 L Hct 27.6 L MCV 93.6 MCH 31.8 MCHC 34.0 RDW 13.6 Plt Count 229 Neut % (Auto) 62.3 Lymph % (Auto) 22.1 L [place] % (Auto) 11.6 Eos % (Auto) 2.8 Baso % (Auto) 1.2 Neut # (Auto) 3600 Lymph # (Auto) 1300 [place] # (Auto) 700 Eos # (Auto) 200 Baso # (Auto) 100 PT INR APTT D-Dimer Sodium Potassium Chloride Carbon Dioxide BUN Creatinine Estimated GFR BUN/Creatinine Ratio Glucose Calcium Magnesium 1.8 Total Bilirubin AST ALT Alkaline Phosphatase Total Creatine Kinase Troponin I < 0.012 NT-Pro-B Natriuret Pep Total Protein Albumin Globulin Albumin/Globulin Ratio Lipase TSH Nasal Screen MRSA (PCR) Not detected Assessment & Plan Assessment & Plan narrative: 1. Atrial fibrillation with rapid response, present on admission and resolved. 2. Pleuritic chest pain without hypoxemia, present on admission and active. 3. Mild pulmonary edema, present on admission and active. 4. Elevated D-dimer, present on admission and active. 5. Hypertension, present on admission and stable. 6. Hyperlipidemia, present on admission and stable. 7. Multiple sclerosis, present on admission and stable. Plan: -complete amiodarone infusion over the next 10 hours. -continue p.o. metoprolol q.6 hours and Eliquis. -review completed echo results. -CT angiogram to rule out pulmonary embolism. -discussed with Cardiology prior to discharge. -anticipate she will need an additional midnight of hospital level services to monitor her arrhythmia after completion of amiodarone infusion and to assure cardiac stability on metoprolol. Estimated date of discharge is 11/25. She is full resuscitation, met with she and her on the morning of November 24. Time Spent With Patient Time with patient: 30 to 49 minutes with 50% spent counseling/coordinating care Quality VTE Deep Vein Thrombosis/Pulmonary Embolism Present on Admission: No MIPS - Admit I confirm the patient?s Advance Care Plan is present, Code status is documented, Surrogate decision maker is in patient?s record [If Yes, STOP here]: Yes
[2023-11-24 10:57] LABS: Urine Volume 10mL (spun)
[2023-11-24 11:06] LABS: Appearance Urine UA SL CLOUDY; Bilirubin Urine UA NEGATIVE (NEGATIVE); Color Urine UA YELLOW; Glucose Urine UA NEGATIVE (Negative); Ketones Urine UA NEGATIVE (NEGATIVE); Leukocyte Esterase Urine UA TRACE (NEGATIVE); Nitrite Urine UA NEGATIVE (Negative); Occult Blood Urine UA NEGATIVE (Negative); Protein Urine UA NEGATIVE (Negative); Specific Gravity Urine UA 1.015 (1.000-1.035); Urobilinogen Urine UA 0.2 E.U./dL (0.2)
[2023-11-24 11:14] LABS: pH Urine UA 5.5 (4.5-8.0)
[2023-11-24 11:20] LABS: Bacteria Urine Many (>30); Culture Indicated Urine Specimen Cultured; RBC Urine None Seen (0-5/HPF); Squamous Epithelial Cell Urine 0-1 /HPF (0-5/HPF); WBC Urine 1-5/HPF (0-5/HPF)
--- NOTE | 2023-11-24 11:56 | CM.DANOTE ---
Addendum entered by GABRIEL Tillman 11/24/23 14:02: Per admission discharge rn, CT scan back up and running and pt will be able to get scan today. Anticipate dc home later today or tomorrow with family support. JANA Original Note: DCP Assessment Note Pt is a 73yo F here admitted for high heart rate, syncopal episode, found to be in Afib with RVR. PCP Pooja Yusuf Payer Medicare and first choice BURRER MACHINE reviewed EMR. Discussed pt in multidisciplinary morning rounds. Per provider, echo pending. Pt currently on an amio drip. Per RN, pt doing well and converted this morning. Provider and RN both do not anticipate CM needs. Due to difficulties obtaining time for proper equipment, pt's discharge may be delayed until tomorrow when proper diagnostic equipment can be secured. BURRER MACHINE entered room and introduced self and role. Pt resting in bed. Pt accompanied by spouse Ajay ([phone]) and grandson at bedside. Pt lives with spouse in [place]. Dtr Niharika ([phone]) lives close by in [facility]. Pt is A/O/I at baseline. Spouse reports wanting pt to be here another night. Pt reports being exhausted due to not getting much sleep the night prior. Pt reports likely no CM needs. Plan: home with spouse support when medically stable. No CM needs identified at this time. CM team will follow as needed. GABRIEL Tillman Discharge Planning/Care Management CM Discharge Assessment Start: 11/24/23 11:53 Freq: Status: Active Protocol: Document 11/24/23 11:53 (Rec: 11/24/23 11:55 [id number]) Discharge Planning Assessment Assigned Hearing Specialist GABRIEL Adam DPOA/Assigned Designee Name Ajay, spouse Contact Information [phone] Advance Directives? Yes Advance Directives on File Yes History Provided By Patient,Medical Record Prior Living Arrangements House Household Members spouse Type of transporation used prior to Drives own vehicle admit Independent with ADL's Yes Is patient alert and oriented? Yes Barriers to Discharge Yes Comment CAT scan machine currently down, waiting on loaner one? pt will likely dc tomorrow due to delay Discharge Plan Home Transportation Arrangement family in [place] Referrals Initiated None needed Whiteboard Updated in Patient Room with Yes name and ext. # of Hearing Specialist Review Status In Process Next Review Type Continued Stay Review
[2023-11-24] MEDS: ACETAMINOPHEN 325 MG TABLET 650 MG PO (14:13)
--- NOTE | 2023-11-24 16:18 | PM.DS.1 ---
History of Present Illness History of Present Illness Chief complaint: high heart rate, syncope Narrative: The patient is a 73-year-old female with history of hypertension, hyperlipidemia, depression, and MS who presented with palpitations and tachycardia last evening after dinner. She also noted some chest tightness on recent pleuritic chest pain. She was sick several days ago with fatigue and pleuritic chest pain as well as a dry cough. She denies any fevers. She also denies any vomiting, exertional chest pain, orthopnea, or leg edema. She was seen by Cardiology a year ago for a general checkup and had a negative stress test as well as a normal echo. In the emergency department last evening she was found to have atrial fibrillation with rapid response and had multiple unsuccessful cardioversion attempts. The emergency physician contacted Cardiology who recommended admission and an amiodarone drip as well as Eliquis and metoprolol. The patient did respond to the amiodarone infusion with a cardioversion to sinus rhythm on the morning of November 24 at 6:30 a.m. Chest x-ray reveals pulmonary edema, troponin is normal, D-dimer is elevated. Discharge Providers Provider Date of admission: 11/23/23 23:02 Discharge Date: 11/24/23 Primary care physician: JULITO Gonzalez Consults: Cardiology tele advice at time of admission. Discharge provider: Jose Maria Unger MD Summary Hospital Course Discharge Diagnosis: 1. Atrial fibrillation with rapid response, present on admission and resolved. NSR at 06:30 AM 11/24/2023. 2. Pleuritic chest pain without hypoxemia, present on admission and improving. 3. Mild pulmonary edema, present on admission and improving. 4. Elevated D-dimer, present on admission and active. Negative CTPA (no PE). 5. Hypertension, present on admission and stable. 6. Hyperlipidemia, present on admission and stable. 7. Multiple sclerosis, present on admission and stable. Hospital Course: The patient was admitted after 3 cardioversion attempts in the ED for atrial fibrillation with RVR. She was placed on an amiodarone bolus and infusion and had conversion to sinus rhythm at 6:30 a.m. on November 24. She was also started on Eliquis and metoprolol orally. She had a negative chest CT pulmonary angiogram and a fairly normal echo as well. She had a surprisingly rapid recovery when initially was anticipated she would require 2 midnights of care. Given her chemical cardioversion in spite of 3 failed electrical conversion attempts she was felt to be stable for discharge after 1 midnight. She will be continued on amiodarone 400 b.i.d. for a week and then 400 daily, metoprolol 50 b.i.d., and Eliquis 5 mg b.i.d. and close follow-up with her english professor, Dr. Bundy will be arranged. Status at Discharge Cognitive/behavioral status at discharge: oriented Functional status at discharge: independent ambulation Overall status at discharge: patient is back to baseline Time Spent with Patient Time spent: Greater than 30 minutes Exam Vital Signs (past 8 hours): - 11/24/23 09:13 11/24/23 10:00 11/24/23 10:00 Temperature Pulse Rate 59 L Respiratory Rate 21 Blood Pressure 170/72 H 146/66 H Pulse Oximetry 95 Oxygen Delivery Method 11/24/23 10:02 11/24/23 10:02 11/24/23 11:00 Temperature Pulse Rate 58 L 57 L Respiratory Rate 18 23 Blood Pressure 146/66 H Pulse Oximetry 95 94 Oxygen Delivery Method 11/24/23 11:01 11/24/23 11:01 11/24/23 11:30 Temperature Pulse Rate 57 L 59 L Respiratory Rate 26 H 28 H Blood Pressure 164/72 H Pulse Oximetry 94 95 Oxygen Delivery Method 11/24/23 12:00 11/24/23 12:00 11/24/23 12:00 Temperature 98.0 F Pulse Rate 60 Respiratory Rate 13 Blood Pressure 166/73 H Pulse Oximetry 95 Oxygen Delivery Method Room Air 11/24/23 12:30 11/24/23 13:00 11/24/23 13:00 Temperature Pulse Rate 64 66 Respiratory Rate 22 20 Blood Pressure 169/74 H Pulse Oximetry 96 95 Oxygen Delivery Method 11/24/23 13:30 11/24/23 14:00 11/24/23 14:00 Temperature Pulse Rate 67 65 Respiratory Rate 23 25 H Blood Pressure 168/74 H Pulse Oximetry 96 97 Oxygen Delivery Method 11/24/23 14:30 11/24/23 15:00 11/24/23 15:30 Temperature Pulse Rate 63 65 62 Respiratory Rate 17 28 H 29 H Blood Pressure Pulse Oximetry 96 95 94 Oxygen Delivery Method 11/24/23 16:00 11/24/23 16:00 Temperature Pulse Rate 66 Respiratory Rate 26 H Blood Pressure Pulse Oximetry 92 Oxygen Delivery Method Room Air Oxygen Delivery Method Room Air Oxygen Flow Rate 0 Narrative Exam Narrative: NAD Lungs are clear, normal rate and effort. Heart is regular, no murmur. Abdomen is soft, non-tender. No leg edema. Objective ECG Impression: AF + RVR Imaging CT scan - chest: Radiologist's impression: No pulmonary embolus. Multiple foci of poorly defined ground-glass opacity can be seen. Although nonspecific, concern is raised for atypical/viral infection. Small bilateral pleural effusions are seen. Echo: My impression: 1. Mildly increased pulmonary vascularity, left greater than right, suggesting mild asymmetric pulmonary edema. Radiologist's impression: The ejection fraction is estimated to be 60-65%. Left ventricular wall motion is normal. There is mild mitral regurgitation. There is mild tricuspid regurgitation. The right ventricular systolic pressure is estimated to be at least 33 mmHg based on an estimated right atrial pressure of 3 mm Hg. Labs 11/24/23 04:00 11/23/23 19:05 Labs: Laboratory Results - last 24 hr 11/23/23 11/23/23 11/23/23 19:05 19:10 19:41 WBC 8.4 RBC 3.55 L Hgb 10.9 L Hct 32.8 L MCV 92.6 MCH 30.6 MCHC 33.1 RDW 13.9 Plt Count 295 Neut % (Auto) 73.6 Lymph % (Auto) 19.2 L [place] % (Auto) 4.4 Eos % (Auto) 2.4 Baso % (Auto) 0.4 Neut # (Auto) 6200 Lymph # (Auto) 1600 [place] # (Auto) 400 Eos # (Auto) 200 Baso # (Auto) 0 PT 10.2 INR 0.9 APTT 29 D-Dimer 1117 H Sodium 134 L Potassium 3.4 Chloride 98 Carbon Dioxide 24 BUN 21 H Creatinine 0.91 Estimated GFR > 60 BUN/Creatinine Ratio 23.1 H Glucose 127 H Calcium 10.1 Magnesium 1.8 Total Bilirubin 0.4 AST 25 ALT 29 Alkaline Phosphatase 75 Total Creatine Kinase 72 Troponin I < 0.012 NT-Pro-B Natriuret Pep 1100 H Total Protein 7.2 Albumin 4.2 Globulin 3.0 Albumin/Globulin Ratio 1.4 Lipase 38 TSH 1.28 Urine Color Urine Appearance Urine pH Ur Specific [place] Urine Protein Urine Glucose (UA) Urine Ketones Urine Occult Blood Urine Nitrate Urine Bilirubin Urine Urobilinogen Ur Leukocyte Esterase Urine RBC Urine WBC Ur Squamous Epith Cells Urine Bacteria Ur Culture Indicated? Vol Urine Centrifuged Nasal Screen MRSA (PCR) 11/24/23 11/24/23 11/24/23 00:00 04:00 10:30 WBC 5.7 RBC 2.95 L Hgb 9.4 L Hct 27.6 L MCV 93.6 MCH 31.8 MCHC 34.0 RDW 13.6 Plt Count 229 Neut % (Auto) 62.3 Lymph % (Auto) 22.1 L [place] % (Auto) 11.6 Eos % (Auto) 2.8 Baso % (Auto) 1.2 Neut # (Auto) 3600 Lymph # (Auto) 1300 [place] # (Auto) 700 Eos # (Auto) 200 Baso # (Auto) 100 PT INR APTT D-Dimer Sodium Potassium Chloride Carbon Dioxide BUN Creatinine Estimated GFR BUN/Creatinine Ratio Glucose Calcium Magnesium 1.8 Total Bilirubin AST ALT Alkaline Phosphatase Total Creatine Kinase Troponin I < 0.012 NT-Pro-B Natriuret Pep Total Protein Albumin Globulin Albumin/Globulin Ratio Lipase TSH Urine Color Yellow Urine Appearance Sl cloudy Urine pH 5.5 Ur Specific [place] 1.015 Urine Protein Negative Urine Glucose (UA) Negative Urine Ketones Negative Urine Occult Blood Negative Urine Nitrate Negative Urine Bilirubin Negative Urine Urobilinogen 0.2 Ur Leukocyte Esterase Trace H Urine RBC None seen Urine WBC 1-5/hpf Ur Squamous Epith Cells 0-1 /hpf Urine Bacteria Many (>30) H Ur Culture Indicated? Specimen cultured Vol Urine Centrifuged 10ml (spun) Nasal Screen MRSA (PCR) Not detected [facility] Social History household members: spouse Smoking Status: Never smoker alcohol intake: current Discharge Assessment & Plan Assessment and Plan Assessment: 1. Atrial fibrillation with rapid response, present on admission and resolved. NSR at 06:30 AM 11/24/2023. 2. Pleuritic chest pain without hypoxemia, present on admission and improving. 3. Mild pulmonary edema, present on admission and improving. 4. Elevated D-dimer, present on admission and active. Negative CTPA (no PE). 5. Hypertension, present on admission and stable. 6. Hyperlipidemia, present on admission and stable. 7. Multiple sclerosis, present on admission and stable. Plan of Treatment: Discharge home with medications as outlined above and close cardiology follow-up. Amiodarone 400 b.i.d. for 1 week and then 400 daily, metoprolol 50 b.i.d., Eliquis [address] Bundy within 2 weeks. Discharge Plan Discharge Plan Patient Disposition: Home Provider Discharge Comment: Patient converted to sinus rhythm on the morning of discharge, she is stable for discharge with close follow-up. Discharge orders & Medications Prescriptions: New bupropion HCl [Wellbutrin XL] 150 mg Tablet Extended Release 24 Hr 150 mg PO DAILY Qty: 30 0RF apixaban 5 mg tablet 5 mg PO BID Qty: 60 2RF metoprolol tartrate 50 mg Tablet 50 mg PO BID Qty: 60 2RF amiodarone 400 mg tablet 400 mg PO BID Qty: 60 1RF Rx Instructions: Take 400 mg BID for 1 week, then 400 mg daily thereafter until follow up with Dr Bundy of cardiology (within 2 weeks) Continued atorvastatin [Lipitor] 10 MG tablet 20 mg PO HS Qty: 0 Multimineral/Multivitamin (THERAGRAN M ) 1 tab PO QDAY Qty: 0 melatonin 3 MG tablet 6 mg PO HS Qty: 0 calcium carbonate-vitamin D3 [Oyster Shell Calcium-Vit D3] 1,250 MG/200 IU tablet 500 mg PO [facility]CC Qty: 0 losartan 50 mg tablet 25 mg PO DAILY Patient Comments: take 1 tablet by mouth once daily trospium 60 mg capsule,extended release 24hr 60 mg PO BID Patient Comments: take 1 capsule by mouth twice a day gabapentin 300 mg capsule 900 mg PO ONCE PM dimethyl fumarate 240 mg capsule,delayed release(DR/EC) 240 mg PO BID bupropion HCl 150 mg tablet extended release 24 hr 150 mg PO QAM Medication counseling provided by Pharmacist: No Follow up/Referrals: Jose Maria Unger MD [Physician] - Pooja Yusuf ARNP [Primary Care Provider] - Discharge Health Status Multidrug resistant organism: No MDRO Diet/Activity/Treatments Diet: Regular Visit Report/Discharge Packet Stand Alone Forms: Patient Portal/API Discharge Data Primary Care Provider: Pooja Yusuf Quality VTE Deep Vein Thrombosis/Pulmonary Embolism Present on Admission: No
== END 2023-11-24 16:40 | disposition home or self-care (01) | DRG 308 ==
LOC: ED 22:13 → ICU 11-24 06:38 → AC 11-24 11:49 → ICU 11-24 11:49
PROVIDERS: Hospitalist; Admitting Provider Internal Medicine; Emergency Provider Emergency Medicine; PCP Registered Nurse; Referring Provider Emergency Medicine; Visit Provider Internal Medicine
DX: I48.91 Unspecified atrial fibrillation (principal); J81.0 Acute pulmonary edema; E78.5 Hyperlipidemia, unspecified; I10 Essential (primary) hypertension; G35 Multiple sclerosis; N32.81 Overactive bladder; R07.89 Other chest pain; R79.1 Abnormal coagulation profile; F32.A Depression, unspecified
CPT/HCPCS: 36415; 71045; 71275; 80053; 81001; 82550; 83690; 83735; 83880; 84443; 84484; 85025; 85379; 85610; 85730; 87077; 87086; 87186; 87797; 92960; 93005; 93306; 96365; 96366; 96367; 96368; 96375; 99152; 99285; 99291; 99292; J0282; J1644; Q9967

== ENCOUNTER 2024-02-16 16:49 | Emergency (ER) | payer MEDICARE, OTHER, SELFPAY ==
[2023-11-24 01:03] VITALS: BMI 29.5
[2024-02-16] VITALS (53 sets, daily range): BP systolic 102–181; BP diastolic 44–90; PULSE 52–120; RESP 9–28; TEMP 36.2; O2SAT 90–112; BMI 26.9
--- NOTE | 2024-02-16 17:00 | DI.RAD.S_ITS ---
PROCEDURE: XR CHEST 1V INDICATIONS: Shortness of breath TECHNIQUE: One view of the chest was acquired. COMPARISON: [facility], CR, XR CHEST 1V, 11/23/2023, 19:30. FINDINGS: Surgical changes and devices: None. Lungs and pleura: Mild chronic interstitial prominence. No focal consolidation. No pleural effusions or pneumothorax. Mediastinum: Mediastinal contours appear normal. Heart size is mildly enlarged. Bones and chest wall: No suspicious bony lesions. Overlying soft tissues appear unremarkable. IMPRESSION: 1. Mild cardiomegaly and chronic interstitial prominence suspicious for mild chronic CHF. Dictated by: Zhang Altman M.D. on 02/16/2024 at 18:50 Approved by: Zhang Altman M.D. on 02/16/2024 at 18:51
[2024-02-16 17:29] LABS: INR 1.5 (0.9-1.3); Prothrombin Time 16.8 SECONDS (9.4-12.5)
[2024-02-16 17:32] LABS: Add Manual Diff / Slide Review NO; Basophils Absolute Auto 0 /uL (0-100); Eosinophils Absolute Auto 200 /uL (0-450); Eosinophils Percent Auto 1.5 % (2-4); Hematocrit 33.6 % (36-46); Hemoglobin 11.1 g/dL (12.0-16.0); Lymphocytes Absolute Auto 1300 /uL (1100-4500); Lymphocytes Percent Auto 11.3 % (25-40); Mean Corpuscular Hemoglobin 30.8 PG (26-34); Mean Corpuscular Volume 93.4 fL (80-100); Monocytes Absolute Auto 1000 /uL (0-900); Monocytes Percent Auto 8.8 % (3-14); Neutrophils Absolute Auto 8800 /uL (1500-7000); Neutrophils Percent Auto 78.4 % (50-75); Platelet Count 269 X10^3/uL (150-400); Red Cell Distribution Width 14.4 % (11.6-14.8); White Blood Cell Count 11.2 X10^3/uL (4.5-11.0)
[2024-02-16 17:34] LABS: Lactate (Lactic Acid) 1.1 mmol/L (0.7-2.1)
[2024-02-16 17:36] LABS: Alanine Aminotransferase 30 IU/L (<35); Albumin 4.6 g/dL (3.5-5.0); Albumin Globulin Ratio 1.7 (1.0-2.8); Alkaline Phosphatase 71 U/L (38-126); Aspartate Aminotransferase 37 IU/L (14-36); BUN Creatinine Ratio 27.8 (6-22); Bilirubin Total 0.6 mg/dL (0.2-1.3); Blood Urea Nitrogen 25 mg/dL (7-17); Calcium 9.8 mg/dL (8.4-10.2); Carbon Dioxide 25 mmol/L (22-32); Chloride 98 mmol/L (98-107); Estimated Glomerular Filt Rate > 60 mL/min (>60); Globulin 2.7 g/dL (1.7-4.1); Glucose 103 mg/dL (80-110); HEMOLYSIS 43 (0-50); Potassium 4.7 mmol/L (3.4-5.1); Sodium 130 mmol/L (137-145); Total Protein 7.3 g/dL (6.3-8.2)
[2024-02-16 17:46] LABS: NT-proBNP (BNP-Adult 18+) 10300 pg/mL (<125); Troponin I < 0.012 ng/mL (0.01-0.034)
--- NOTE | 2024-02-16 18:14 | ED.ARRPALP ---
HPI - Arrhythmia/Palpitations General Chief Complaint: Arrhythmia/Palpitations Stated Complaint: states A Fib Time Seen by Provider: 02/16/24 17:44 Source: patient Mode of arrival: Wheelchair History of Present Illness HPI narrative: 73-year-old female with history of atrial fibrillation on amiodarone and Eliquis presents for fatigue, shortness of breath, and atrial fibrillation. Patient states that for the last week she was felt very fatigued, short of breath, and has had lower extremity swelling. She was at her doctor's office and they noticed a rapid irregular heart rate and sent her to the emergency department for evaluation. Patient reports compliance with all of her medications and denies missing any doses. Last echocardiogram in November of 2023 shows an EF of 60-65% Related Data Home Medications Medication Instructions Recorded Confirmed Multimineral/Multivitamin 1 tab PO QDAY ##0 05/20/13 11/24/23 (THERAGRAN M ) atorvastatin 10 mg tablet (Lipitor) 20 mg PO HS ##0 05/20/13 11/24/23 calcium carbonate 500 mg-vitamin [address] [facility] ##0 05/20/13 11/24/23 D3 5 mcg (200 unit) tablet (Oyster Shell Calcium-Vitamin D3) melatonin 3 mg tablet 6 mg PO HS ##0 05/20/13 11/24/23 losartan 50 mg tablet 25 mg PO DAILY 09/17/21 11/24/23 trospium 60 mg capsule,extended 60 mg PO BID 09/17/21 11/24/23 release 24 hr bupropion HCl 150 mg 24 hr tablet, 150 mg PO QAM depressive disorder 11/24/23 11/24/23 extended release dimethyl fumarate 240 mg 240 mg PO BID 11/24/23 11/24/23 capsule,delayed release gabapentin 300 mg capsule 900 mg PO ONCE PM 11/24/23 11/24/23 Previous Rx's Medication Instructions Recorded amiodarone 400 mg tablet 400 mg PO BID #60 tabs 11/24/23 apixaban 5 mg tablet 5 mg PO BID #60 tabs 11/24/23 bupropion HCl 150 mg 24 hr tablet, 150 mg PO DAILY #30 tabs 11/24/23 extended release (Wellbutrin XL) metoprolol tartrate 50 mg tablet 50 mg PO BID #60 tabs 11/24/23 amiodarone 400 mg tablet 400 mg PO DAILY #30 tabs 02/16/24 furosemide 20 mg tablet 20 mg PO DAILY #10 tabs 02/16/24 Allergies Allergy/AdvReac Type Severity Reaction Status Date / Time codeine Allergy Severe Hives and Verified 08/23/23 12:10 nausea/vomiting Review of Systems Review of Systems Narrative: Negative except as noted above Patient History Social History household members: spouse Smoking Status: Never smoker alcohol intake: current Smoking Status: Never smoker alcohol intake frequency: a few times a month Alcohol type: wine Substance Use Type: does not use Exam Initial Vital Signs Initial Vital Signs: Vital Signs Temperature 97.2 F L 02/16/24 16:57 Respiratory Rate 20 02/16/24 16:57 Blood Pressure 157/86 H 02/16/24 16:57 Pulse Oximetry 112 H 02/16/24 16:57 Oxygen Delivery Method Room Air 02/16/24 16:57 Const: Awake, alert, no acute distress, nontoxic appearing Cardiac: Tachycardia, irregularly irregular RESP: unlabored, clear bilaterally, no wheezing GI: Soft, nontender, nondistended, no rebound, no guarding MSK: 1+ pitting edema to knees bilaterally Skin: Warm, Dry, intact, no rashes Neuro: AO x3, CN II-XII grossly intact, moves all extremities Procedures Cardioversion Consent Signed: Yes Indication: AFib with RVR Stability: Stable Number of attempts (shocks): 1 Joules used: 150 Cardiac rhythm post-cardioversion: Sinus bradycardia Procedural Sedation Consent signed: Yes Time out performed: Yes Indication: cardioversion ASA Class: II Mallampati Airway Classification: Class I Time of Last PO Intake: 15:00 Preparation: quality assurance monitor body applied, pulse oximeter, capnometry used, supplemental O2 applied, reversal agents at bedside and IV secured IV Propofol dose (mg): 70 Intraservice time/total sedation time (min): 15 ED Sedation Level: Moderate (Concious) Patient Tolerated Procedure: Well and No complications Course Orders Ordered: ED Orders 02/16/24 17:00 XR chest 1V Stat EKG-12 Lead Stat Measure peak expiratory flow ONCE RT Consult Eval and Treat NOW 02/16/24 17:11 Complete Blood Count AUTO DIFF Stat Comprehensive Metabolic Panel Stat Lactate (Lactic Acid) Stat NT-proBNP (BNP-Adult 18+) Stat Prothrombin Time INR Stat Troponin I Stat EKG-12 Lead Routine Discontinued Medications Amiodarone HCl (Amiodarone 150 Mg/3 Ml Vial) 150 mg IV NOW ONE Stop: 02/16/24 20:32 Last Admin: 02/16/24 20:48 Dose: Not Given Documented By: IVA Furosemide (Furosemide 40 Mg/4 Ml Vial) 40 mg IV NOW ONE Stop: 02/16/24 19:18 Last Admin: 02/16/24 19:40 Dose: 40 mg Documented By: NAVIN Amiodarone HCl/Dextrose (Nexterone) 150 mg in 100 mls @ 50 mls/hr IV NOW ONE; Protocol Stop: 02/16/24 22:39 Last Infusion: 02/16/24 22:47 Dose: Infused Documented By: Admin: 02/16/24 20:47 Dose: 50 mls/hr Documented By: IVA Metoprolol Tartrate (Metoprolol Tartrate 5 Mg/5 Ml Inj) 5 mg IV Q5M DARCY Stop: 02/16/24 19:41 Last Admin: 02/16/24 20:00 Dose: 5 mg Documented By: Admin: 02/16/24 19:49 Dose: 5 mg Documented By: Admin: 02/16/24 19:41 Dose: 5 mg Documented By: NAVIN Propofol (Propofol 200 Mg/20 Ml Vial) 100 mg IV NOW ONE Stop: 02/16/24 22:17 Last Admin: 02/16/24 22:20 Dose: 70 mg Documented By: NAVIN Vital Signs Vital signs: Vital Signs - 8 hr 02/16/24 16:57 02/16/24 17:29 02/16/24 17:30 Temperature 97.2 F L Pulse Rate 104 H 104 H Respiratory Rate 20 Blood Pressure 157/86 H Pulse Oximetry 112 H 97 98 Oxygen Delivery Method Room Air Oxygen Flow Rate 02/16/24 17:30 02/16/24 18:00 02/16/24 18:00 Temperature Pulse Rate 114 H Respiratory Rate 12 Blood Pressure 181/85 H 145/90 H Pulse Oximetry 96 Oxygen Delivery Method Oxygen Flow Rate 02/16/24 18:30 02/16/24 18:30 02/16/24 19:07 Temperature Pulse Rate 115 H 52 L Respiratory Rate 14 Blood Pressure 146/68 H Pulse Oximetry 95 Oxygen Delivery Method Oxygen Flow Rate 02/16/24 19:30 02/16/24 19:47 02/16/24 19:47 Temperature Pulse Rate 106 H 111 H Respiratory Rate 15 14 Blood Pressure 148/69 H Pulse Oximetry 97 97 Oxygen Delivery Method Oxygen Flow Rate 02/16/24 19:50 02/16/24 19:50 02/16/24 19:55 Temperature Pulse Rate 109 H 111 H Respiratory Rate 14 19 Blood Pressure 142/67 H Pulse Oximetry 96 96 Oxygen Delivery Method Oxygen Flow Rate 02/16/24 19:55 02/16/24 20:00 02/16/24 20:00 Temperature Pulse Rate 116 H Respiratory Rate 15 Blood Pressure 146/71 H 156/70 H Pulse Oximetry 97 Oxygen Delivery Method Oxygen Flow Rate 02/16/24 20:05 02/16/24 20:05 02/16/24 20:15 Temperature Pulse Rate 114 H 109 H Respiratory Rate 14 19 Blood Pressure 154/83 H Pulse Oximetry 97 97 Oxygen Delivery Method Oxygen Flow Rate 02/16/24 20:15 02/16/24 20:20 02/16/24 20:20 Temperature Pulse Rate 114 H Respiratory Rate 12 Blood Pressure 139/67 147/88 H Pulse Oximetry 97 Oxygen Delivery Method Oxygen Flow Rate 02/16/24 20:25 02/16/24 20:25 02/16/24 20:30 Temperature Pulse Rate 111 H 114 H Respiratory Rate 19 15 Blood Pressure 140/72 Pulse Oximetry 97 97 Oxygen Delivery Method Oxygen Flow Rate 02/16/24 20:30 02/16/24 20:35 02/16/24 20:35 Temperature Pulse Rate 112 H Respiratory Rate 13 Blood Pressure 123/61 153/79 H Pulse Oximetry 97 Oxygen Delivery Method Oxygen Flow Rate 02/16/24 20:51 02/16/24 20:51 02/16/24 20:55 Temperature Pulse Rate 119 H Respiratory Rate 12 Blood Pressure 140/78 138/62 Pulse Oximetry 98 Oxygen Delivery Method Oxygen Flow Rate 02/16/24 20:55 02/16/24 21:00 02/16/24 21:00 Temperature Pulse Rate 120 H 116 H Respiratory Rate 22 27 H Blood Pressure 124/68 Pulse Oximetry 97 97 Oxygen Delivery Method Oxygen Flow Rate 02/16/24 21:10 02/16/24 21:10 02/16/24 21:15 Temperature Pulse Rate 116 H Respiratory Rate 23 Blood Pressure 131/90 127/66 Pulse Oximetry 95 Oxygen Delivery Method Oxygen Flow Rate 02/16/24 21:15 02/16/24 21:21 02/16/24 21:21 Temperature Pulse Rate 112 H 111 H Respiratory Rate 11 L 16 Blood Pressure 126/44 L Pulse Oximetry 95 95 Oxygen Delivery Method Oxygen Flow Rate 02/16/24 21:36 02/16/24 21:36 02/16/24 21:40 Temperature Pulse Rate 108 H 114 H Respiratory Rate 13 13 Blood Pressure 123/61 Pulse Oximetry 95 94 Oxygen Delivery Method Oxygen Flow Rate 02/16/24 21:40 02/16/24 21:45 02/16/24 21:45 Temperature Pulse Rate 111 H Respiratory Rate 22 Blood Pressure 119/72 135/61 Pulse Oximetry 97 Oxygen Delivery Method Oxygen Flow Rate 02/16/24 21:50 02/16/24 21:50 02/16/24 21:55 Temperature Pulse Rate 113 H Respiratory Rate 15 Blood Pressure 117/76 115/63 Pulse Oximetry 95 Oxygen Delivery Method Oxygen Flow Rate 02/16/24 21:55 02/16/24 22:00 02/16/24 22:00 Temperature Pulse Rate 107 H 110 H Respiratory Rate 16 21 Blood Pressure 109/56 L Pulse Oximetry 94 94 Oxygen Delivery Method Oxygen Flow Rate 02/16/24 22:05 02/16/24 22:05 02/16/24 22:10 Temperature Pulse Rate 104 H 107 H Respiratory Rate 16 14 Blood Pressure 104/67 Pulse Oximetry 93 93 Oxygen Delivery Method Oxygen Flow Rate 02/16/24 22:10 02/16/24 22:15 02/16/24 22:15 Temperature Pulse Rate 103 H Respiratory Rate 14 Blood Pressure 102/67 115/57 L Pulse Oximetry 93 Oxygen Delivery Method Oxygen Flow Rate 02/16/24 22:20 02/16/24 22:20 02/16/24 22:25 Temperature Pulse Rate 96 H 104 H Respiratory Rate 21 24 Blood Pressure 112/61 Pulse Oximetry 93 94 Oxygen Delivery Method Oxygen Flow Rate 02/16/24 22:25 02/16/24 22:30 02/16/24 22:30 Temperature Pulse Rate 107 H Respiratory Rate 28 H Blood Pressure 128/60 110/65 Pulse Oximetry 93 Oxygen Delivery Method Oxygen Flow Rate 02/16/24 22:53 02/16/24 22:53 02/16/24 22:55 Temperature Pulse Rate 109 H 108 H Respiratory Rate 15 25 H Blood Pressure 147/79 H Pulse Oximetry 96 97 Oxygen Delivery Method Oxygen Flow Rate 02/16/24 22:55 02/16/24 23:01 02/16/24 23:25 Temperature Pulse Rate 54 L 54 L Respiratory Rate 12 16 Blood Pressure 122/70 133/59 L 118/56 L Pulse Oximetry 91 92 Oxygen Delivery Method Oxygen Flow Rate 2 2 02/16/24 23:30 02/16/24 23:34 02/16/24 23:35 Temperature Pulse Rate 54 L 112 H 54 L Respiratory Rate 16 18 17 Blood Pressure 103/55 L 108/53 L Pulse Oximetry 95 94 Oxygen Delivery Method Oxygen Flow Rate 0 0 02/16/24 23:40 02/16/24 23:45 02/16/24 23:49 Temperature Pulse Rate 55 L 56 L 57 L Respiratory Rate 14 14 18 Blood Pressure 125/58 L 125/58 L 137/65 Pulse Oximetry 93 95 95 Oxygen Delivery Method Oxygen Flow Rate 0 0 0 MDM - Arrhythmia/Palpitations Differential Diagnosis Differential diagnosis: Likely palpitations, anxiety and artial fibrillation Lab Data 02/16/24 17:11 02/16/24 17:11 Labs: Lab Results 02/16/24 Range/Units 17:11 WBC 11.2 H (4.5-11.0) X10^3/uL RBC 3.60 L (4.0-5.2) X10^6/uL Hgb 11.1 L (12.0-16.0) g/dL Hct 33.6 L (36-46) % MCV 93.4 (80-100) fL MCH 30.8 (26-34) PG MCHC 33.0 (30-36) % RDW 14.4 (11.6-14.8) % Plt Count 269 (150-400) X10^3/uL Neut % (Auto) 78.4 H (50-75) % Lymph % (Auto) 11.3 L (25-40) % [place] % (Auto) 8.8 (3-14) % Eos % (Auto) 1.5 L (2-4) % Baso % (Auto) 0.0 (0-2) % Neut # (Auto) 8800 H (1637-6363) /uL Lymph # (Auto) 1300 (3753-7507) /uL [place] # (Auto) 1000 H (0-900) /uL Eos # (Auto) 200 (0-450) /uL Baso # (Auto) 0 (0-100) /uL PT 16.8 H (9.4-12.5) SECONDS INR 1.5 H (0.9-1.3) Sodium 130 L (137-145) mmol/L Potassium 4.7 (3.4-5.1) mmol/L Chloride 98 (98-107) mmol/L Carbon Dioxide 25 (22-32) mmol/L BUN 25 H (7-17) mg/dL Creatinine 0.90 (0.52-1.04) mg/dL Estimated GFR > 60 (>60) mL/min BUN/Creatinine Ratio 27.8 H (6-22) Glucose 103 (80-110) mg/dL Lactate 1.1 (0.7-2.1) mmol/L Calcium 9.8 (8.4-10.2) mg/dL Total Bilirubin 0.6 (0.2-1.3) mg/dL AST 37 H (14-36) IU/L ALT 30 (<35) IU/L Alkaline Phosphatase 71 (38-126) U/L Troponin I < 0.012 (0.01-0.034) ng/mL NT-Pro-B Natriuret Pep 11722 H (<125) pg/mL Total Protein 7.3 (6.3-8.2) g/dL Albumin 4.6 (3.5-5.0) g/dL Globulin 2.7 (1.7-4.1) g/dL Albumin/Globulin Ratio 1.7 (1.0-2.8) Point of Care Testing Test Results Negative MDM Narrative Medical decision making narrative: Atrial fibrillation with rapid ventricular response and patient on amiodarone. Patient states she thinks she was usually in sinus rhythm. EF in November 2059 to 65%, however patient now has shortness of breath and leg swelling concerning for volume overload and heart failure. Previously failed electrocardioversion and required admission to the hospital. Chest x-ray shows beginnings of congestive heart failure. Laboratory work shows potassium 4.7, magnesium 1.8, undetectable troponin, BNP 95933. Normal creatinine. Attempted metoprolol 5 mg x3 without any change in patient's rate. Call placed to Dr. Child of Cardiology for recommendations. He recommends a very slow bolus of amiodarone 150 mg over 2 hours due to patient's presenting symptoms of new congestive heart failure. He states that after the 150 mg bolus is finished he recommends an electric cardioversion. If this cardioversion was unsuccessful he recommends continuing the amiodarone drip and admission to the hospital. In the interim patient has been given 40 mg IV Lasix for volume overload. Patient was converted to normal sinus rhythm at 54 beats per minute after a single synchronized 150 joule shock. Patient sustained sinus bradycardia without need for repeat cardioversion. We will increase bradycardia to 400 mg daily, and we will add a short course of Lasix for continued diuresis. Patient has upcoming cardiology appointment with Dr. Lino. Critical Care Time Critical Care Time Critical Care Time: Yes Total Critical Care Time: 39 Attestation: Atrial fibrillation with RVR requiring cardioversion, failed several IV medication doses. Discharge Plan Departure Patient Disposition: Home Clinical Impression: Atrial fibrillation with rapid ventricular response, Volume overload Instructions: DI for Atrial Fibrillation Activity Restrictions/Additional Instructions: Increase the amiodarone to 400mg daily. Take the lasix to help decrease the fluid on your legs and lungs. Follow up with your electronic commerce specialist. Prescriptions: New amiodarone 400 mg tablet 400 mg PO DAILY Qty: 30 0RF furosemide 20 mg tablet 20 mg PO DAILY Qty: 10 0RF No Action atorvastatin [Lipitor] 10 MG tablet 20 mg PO HS Qty: 0 Multimineral/Multivitamin (THERAGRAN M ) 1 tab PO QDAY Qty: 0 melatonin 3 MG tablet 6 mg PO HS Qty: 0 calcium carbonate-vitamin D3 [Oyster Shell Calcium-Vit D3] 1,250 MG/200 IU tablet 500 mg PO [facility] Qty: 0 losartan 50 mg tablet 25 mg PO DAILY Patient Comments: take 1 tablet by mouth once daily trospium 60 mg capsule,extended release 24hr 60 mg PO BID Patient Comments: take 1 capsule by mouth twice a day gabapentin 300 mg capsule 900 mg PO ONCE PM dimethyl fumarate 240 mg capsule,delayed release(DR/EC) 240 mg PO BID bupropion HCl 150 mg tablet extended release 24 hr 150 mg PO QAM bupropion HCl [Wellbutrin XL] 150 mg Tablet Extended Release 24 Hr 150 mg PO DAILY Qty: 30 0RF apixaban 5 mg tablet 5 mg PO BID Qty: 60 2RF metoprolol tartrate 50 mg Tablet 50 mg PO BID Qty: 60 2RF amiodarone 400 mg tablet 400 mg PO BID Qty: 60 1RF Rx Instructions: Take 400 mg BID for 1 week, then 400 mg daily thereafter until follow up with Dr Bundy of cardiology (within 2 weeks) Referrals: Pooja Yusuf ARNP [Primary Care Provider] - Stand Alone Forms: Patient Portal/API
[2024-02-16] MEDS: FUROSEMIDE 40 MG/4 ML VIAL IV (19:40)
[2024-02-16] MEDS: METOPROLOL TARTRATE 5 MG/5 ML INJ IV ×3 (19:41→20:00)
[2024-02-16] MEDS: AMIODARONE 150 MG/100 ML PIGGYBACK 50 MG IV (20:47)
[2024-02-16] MEDS: propofoL 200 MG/20 ML VIAL 100 MG IV (22:20)
[2024-02-17] VITALS: BP 134/60; PULSE 57; RESP 18; O2SAT 95
== END 2024-02-17 00:30 | disposition home or self-care (01) ==
PROVIDERS: Emergency Medicine; Emergency Provider Emergency Medicine; PCP Registered Nurse
DX: I48.20 Chronic atrial fibrillation, unspecified (principal); Z79.01 Long term (current) use of anticoagulants; E87.70 Fluid overload, unspecified; R06.02 Shortness of breath
CPT/HCPCS: 71045; 80053; 83605; 83880; 84484; 85025; 85610; 92960; 93005; 96365; 96366; 96375; 99152; 99284; 99285; J0282; J1940; J2704

== ENCOUNTER 2024-02-20 17:47 | Emergency (ER) | payer MEDICARE, OTHER, SELFPAY ==
[2023-11-24 01:03] VITALS: BMI 29.5
[2024-02-20] VITALS (23 sets, daily range): BP systolic 95–169; BP diastolic 49–77; PULSE 57–110; RESP 9–24; TEMP 36.4; O2SAT 93–99; BMI 26.2
[2024-02-20] MEDS: SODIUM CHLORIDE 0.9% 1,000 ML 125 ML IV (18:13)
[2024-02-20 18:19] LABS: Add Manual Diff / Slide Review NO; Basophils Absolute Auto 100 /uL (0-100); Basophils Percent Auto 1.1 % (0-2); Eosinophils Absolute Auto 200 /uL (0-450); Hematocrit 36.8 % (36-46); Hemoglobin 12.1 g/dL (12.0-16.0); Lymphocytes Absolute Auto 1200 /uL (1100-4500); Lymphocytes Percent Auto 10.2 % (25-40); Mean Corpuscular Hemoglobin 30.7 PG (26-34); Mean Corpuscular Volume 93.3 fL (80-100); Monocytes Absolute Auto 1100 /uL (0-900); Monocytes Percent Auto 9.7 % (3-14); Neutrophils Absolute Auto 8900 /uL (1500-7000); Platelet Count 331 X10^3/uL (150-400); Red Blood Cell Count 3.94 X10^6/uL (4.0-5.2); Red Cell Distribution Width 14.3 % (11.6-14.8); White Blood Cell Count 11.5 X10^3/uL (4.5-11.0)
--- NOTE | 2024-02-20 18:21 | ED.ARRPALP ---
HPI - Arrhythmia/Palpitations General Chief Complaint: Arrhythmia/Palpitations Stated Complaint: AFIB, sent by PCP Time Seen by Provider: 02/20/24 17:48 Source: patient Mode of arrival: Ambulatory History of Present Illness HPI narrative: 73-year-old female with history of atrial fibrillation, hypertension, dyslipidemia, CHF on Eliquis daily as well as amiodarone who had recent cardioversion on the 15 of February. Patient presents for recurrent atrial fibrillation she notes that her heart rate has been elevated over the past day or so. She describes feeling very tired and fatigued. She did have an episode of chest pain yesterday and 1 today while she was sitting but noted her heart rate was fast at 1:15 a.m. when this occurred. She states it lasted for a brief period of time she felt some pressure no shortness of breath, she felt cold but not sweaty, no nausea or vomiting. She has had some lightheadedness but no syncope. She notes some mild swelling in her ankles has improved since she was started on Lasix on the . Patient describes some mild constipation. Denies any major urinary issues. She did see her measuring machine tender on Thursday, Dr. Bundy. She was recommended to return to the ED for repeat cardioversion today. She notes no prior ablation, cardiac stents but has had cardioversions x3 in the past. No tobacco, alcohol or recreational drugs. Does have a known family history of coronary artery disease. Related Data Home Medications Medication Instructions Recorded Confirmed Multimineral/Multivitamin 1 tab PO QDAY ##0 05/20/13 11/24/23 (THERAGRAN M ) atorvastatin 10 mg tablet (Lipitor) 20 mg PO HS ##0 05/20/13 11/24/23 calcium carbonate 500 mg-vitamin 500 mg PO [facility] ##0 05/20/13 11/24/23 D3 5 mcg (200 unit) tablet (Oyster Shell Calcium-Vitamin D3) melatonin 3 mg tablet 6 mg PO HS ##0 05/20/13 11/24/23 losartan 50 mg tablet 25 mg PO DAILY 09/17/21 11/24/23 trospium 60 mg capsule,extended 60 mg PO BID 09/17/21 11/24/23 release 24 hr bupropion HCl 150 mg 24 hr tablet, 150 mg PO QAM depressive disorder 11/24/23 11/24/23 extended release dimethyl fumarate 240 mg 240 mg PO BID 11/24/23 11/24/23 capsule,delayed release gabapentin 300 mg capsule 900 mg PO ONCE PM 11/24/23 11/24/23 Previous Rx's Medication Instructions Recorded amiodarone 400 mg tablet 400 mg PO BID #60 tabs 11/24/23 apixaban 5 mg tablet 5 mg PO BID #60 tabs 11/24/23 bupropion HCl 150 mg 24 hr tablet, 150 mg PO DAILY #30 tabs 11/24/23 extended release (Wellbutrin XL) metoprolol tartrate 50 mg tablet 50 mg PO BID #60 tabs 11/24/23 amiodarone 400 mg tablet 400 mg PO DAILY #30 tabs 02/16/24 furosemide 20 mg tablet 20 mg PO DAILY #10 tabs 02/16/24 potassium chloride 20 mEq 20 meq PO DAILY #10 tabs 02/20/24 tablet,extended release Allergies Allergy/AdvReac Type Severity Reaction Status Date / Time codeine Allergy Severe Hives and Verified 02/20/24 17:59 nausea/vomiting Review of Systems Review of Systems ROS Unobtainable: All systems reviewed & are unremarkable except as noted in HPI and below Patient History Social History household members: spouse Smoking Status: Never smoker alcohol intake: current Smoking Status: Never smoker alcohol intake frequency: a few times a month Alcohol type: wine Substance Use Type: does not use Exam Narrative Exam Narrative: GENERAL: Alert and oriented x three, female in mild distress HEENT: Head normocephalic, atraumatic, EOMI, pupils reactive, face symmetric, moist mucous membranes NECK: Supple, full range of motion CARDIOVASCULAR: Irregularly regular, tachycardic rate and rhythm without murmurs, rubs or gallops. No JVD. Trace edema bilateral lower extremities. RESPIRATORY: Breath sounds equal bilaterally, no wheezes rales or rhonchi. No tachypnea or accessory muscle use. Speaks in full sentences. ABDOMEN: Soft, nontender. Normoactive bowel sounds all 4 quadrants. No guarding or rebound, rigidity, no mass : No CVA tenderness EXTREMITIES: Normal range of motion, no clubbing or edema. Neurovascularly intact NEUROLOGICAL: Cranial nerves II through XII grossly intact. Moving all extremities SKIN: Warm, dry, no petechiae, no rashes or lesions. Initial Vital Signs Initial Vital Signs: Vital Signs Pulse Rate 99 H 02/20/24 17:57 Blood Pressure 166/77 H 02/20/24 17:57 Pulse Oximetry 98 02/20/24 17:57 Procedures Cardioversion Consent Signed: Yes Indication: atrial fibrillation with rapid ventricular response Stability: Stable Number of attempts (shocks): 2 Joules used: 200 Cardiac rhythm post-cardioversion: Normal sinus rhythm. Additional Comments: Patient had shock with 200 joules with brief conversion to sinus rhythm for about 10 seconds and then returned to atrial fibrillation with rapid response, had repeat shock at 200 joules appears to have cardioverted to sinus rhythm. EKG shows sinus rhythm. Procedural Sedation Consent signed: Yes Time out performed: Yes Indication: cardioversion ASA Class: II Mallampati Airway Classification: Class II Time of Last PO Intake: 15:00 Preparation: monitoring analyst applied, pulse oximeter, capnometry used, supplemental O2 applied, suction/airway equipment at bedside and IV secured IV Propofol dose (mg): 70 ED Sedation Level: Moderate (Concious) Patient Tolerated Procedure: Well and No complications Complications: none Additional Comments: Patient had 35mg by an additional 35 for total of 70 mg, patient tolerated well. Course Orders Ordered: ED Orders 02/20/24 17:49 EKG-12 Lead Stat 02/20/24 18:08 BNP [NT-proBNP (BNP-Adult 18+)] Stat Complete Blood Count AUTO DIFF Stat Comprehensive Metabolic Panel Stat Lipase Stat Magnesium Stat Thyroid Stimulating Hormone Stat Trop I [Troponin I] Stat 02/20/24 18:52 Chest [XR chest 1V] Stat Sodium Chloride (Normal Saline 0.9%) 1,000 mls @ 125 mls/hr IV CONT DARCY Last Infusion: 02/20/24 22:43 Dose: 999 mls/hr Documented By: Admin: 02/20/24 18:13 Dose: 125 mls/hr Documented By: EFRA Discontinued Medications Potassium Chloride (Potassium Chloride 20 Meq Tab) 40 meq PO NOW ONE Stop: 02/20/24 18:55 Last Admin: 02/20/24 19:34 Dose: 40 meq Documented By: HARDIK Propofol (Propofol 200 Mg/20 Ml Vial) 70 mg 1 mg/kg (70 mg) IV NOW ONE Stop: 02/20/24 21:32 Last Admin: 02/20/24 21:37 Dose: 70 mg Documented By: AHRDIK Vital Signs Vital signs: Vital Signs - 8 hr 02/20/24 17:57 02/20/24 17:57 02/20/24 17:59 Temperature 97.6 F Pulse Rate 99 H 106 H Respiratory Rate 18 Blood Pressure 166/77 H 166/77 H Pulse Oximetry 98 98 Oxygen Delivery Method Room Air Oxygen Flow Rate 02/20/24 18:00 02/20/24 18:00 02/20/24 18:30 Temperature Pulse Rate 105 H 105 H Respiratory Rate 12 Blood Pressure 169/72 H Pulse Oximetry 99 96 Oxygen Delivery Method Oxygen Flow Rate 02/20/24 18:30 02/20/24 19:00 02/20/24 19:00 Temperature Pulse Rate 105 H Respiratory Rate 20 Blood Pressure 133/63 143/70 H Pulse Oximetry 97 Oxygen Delivery Method Oxygen Flow Rate 02/20/24 19:30 02/20/24 19:30 02/20/24 20:00 Temperature Pulse Rate 108 H 108 H Respiratory Rate 24 Blood Pressure 149/70 H Pulse Oximetry 96 97 Oxygen Delivery Method Oxygen Flow Rate 02/20/24 20:00 02/20/24 20:30 02/20/24 20:30 Temperature Pulse Rate 104 H Respiratory Rate Blood Pressure 137/60 130/58 L Pulse Oximetry 95 Oxygen Delivery Method Oxygen Flow Rate 02/20/24 21:00 02/20/24 21:00 02/20/24 21:30 Temperature Pulse Rate 105 H 106 H Respiratory Rate Blood Pressure 131/62 Pulse Oximetry 93 96 Oxygen Delivery Method Oxygen Flow Rate 02/20/24 21:30 02/20/24 21:38 02/20/24 21:40 Temperature Pulse Rate 106 H 110 H Respiratory Rate 16 16 Blood Pressure 150/65 H 150/65 H 147/66 H Pulse Oximetry 96 97 Oxygen Delivery Method Oxygen Flow Rate 0 0 02/20/24 21:40 02/20/24 21:40 02/20/24 21:45 Temperature Pulse Rate 106 H 60 Respiratory Rate 19 16 Blood Pressure 147/66 H 117/56 L Pulse Oximetry 96 95 Oxygen Delivery Method Oxygen Flow Rate 2 02/20/24 21:45 02/20/24 21:45 02/20/24 21:50 Temperature Pulse Rate 59 L 60 Respiratory Rate 15 17 Blood Pressure 117/56 L 101/49 L Pulse Oximetry 96 94 Oxygen Delivery Method Oxygen Flow Rate 0 02/20/24 21:50 02/20/24 21:50 02/20/24 21:55 Temperature Pulse Rate 60 60 Respiratory Rate 17 16 Blood Pressure 101/49 L 95/50 L Pulse Oximetry 94 94 Oxygen Delivery Method Oxygen Flow Rate 0 02/20/24 21:55 02/20/24 21:55 02/20/24 21:56 Temperature Pulse Rate 59 L 59 L Respiratory Rate 17 14 Blood Pressure 95/50 L Pulse Oximetry 94 Oxygen Delivery Method Oxygen Flow Rate 02/20/24 22:00 02/20/24 22:00 02/20/24 22:00 Temperature Pulse Rate 59 L 59 L Respiratory Rate 16 16 Blood Pressure 115/55 L 115/55 L Pulse Oximetry 94 94 Oxygen Delivery Method Oxygen Flow Rate 0 02/20/24 22:05 02/20/24 22:05 02/20/24 22:05 Temperature Pulse Rate 59 L 59 L Respiratory Rate 16 17 Blood Pressure 107/54 L 107/54 L Pulse Oximetry 94 94 Oxygen Delivery Method Oxygen Flow Rate 0 02/20/24 22:10 02/20/24 22:10 02/20/24 22:10 Temperature Pulse Rate 59 L 59 L Respiratory Rate 17 15 Blood Pressure 107/53 L 107/53 L Pulse Oximetry 95 95 Oxygen Delivery Method Oxygen Flow Rate 0 02/20/24 22:15 02/20/24 22:15 02/20/24 22:15 Temperature Pulse Rate 59 L 59 L Respiratory Rate 17 16 Blood Pressure 109/53 L 109/53 L Pulse Oximetry 95 94 Oxygen Delivery Method Oxygen Flow Rate 0 02/20/24 22:20 02/20/24 22:20 02/20/24 22:20 Temperature Pulse Rate 58 L 57 L Respiratory Rate 16 15 Blood Pressure 101/50 L 101/50 L Pulse Oximetry 96 96 Oxygen Delivery Method Oxygen Flow Rate 0 02/20/24 22:30 02/20/24 22:30 02/20/24 22:35 Temperature Pulse Rate 60 58 L Respiratory Rate 10 L 9 L Blood Pressure 115/55 L Pulse Oximetry 96 95 Oxygen Delivery Method Oxygen Flow Rate 02/20/24 22:35 Temperature Pulse Rate Respiratory Rate Blood Pressure 117/56 L Pulse Oximetry Oxygen Delivery Method Oxygen Flow Rate MDM - Arrhythmia/Palpitations Lab Data 02/20/24 18:08 02/20/24 18:08 Labs: Lab Results 02/20/24 Range/Units 18:08 WBC 11.5 H (4.5-11.0) X10^3/uL RBC 3.94 L (4.0-5.2) X10^6/uL Hgb 12.1 (12.0-16.0) g/dL Hct 36.8 (36-46) % MCV 93.3 (80-100) fL MCH 30.7 (26-34) PG MCHC 33.0 (30-36) % RDW 14.3 (11.6-14.8) % Plt Count 331 (150-400) X10^3/uL Neut % (Auto) 77.0 H (50-75) % Lymph % (Auto) 10.2 L (25-40) % [place] % (Auto) 9.7 (3-14) % Eos % (Auto) 2.0 (2-4) % Baso % (Auto) 1.1 (0-2) % Neut # (Auto) 8900 H (6183-3557) /uL Lymph # (Auto) 1200 (0482-9887) /uL [place] # (Auto) 1100 H (0-900) /uL Eos # (Auto) 200 (0-450) /uL Baso # (Auto) 100 (0-100) /uL Sodium 127 L (137-145) mmol/L Potassium 3.1 L D (3.4-5.1) mmol/L Chloride 91 L (98-107) mmol/L Carbon Dioxide 24 (22-32) mmol/L BUN 31 H (7-17) mg/dL Creatinine 1.49 H (0.52-1.04) mg/dL Estimated GFR 37 L (>60) mL/min BUN/Creatinine Ratio 20.8 (6-22) Glucose 88 (80-110) mg/dL Calcium 10.6 H (8.4-10.2) mg/dL Magnesium 2.0 (1.6-2.3) mg/dL Total Bilirubin 0.6 (0.2-1.3) mg/dL AST 34 (14-36) IU/L ALT 36 H (<35) IU/L Alkaline Phosphatase 101 (38-126) U/L Troponin I < 0.012 (0.01-0.034) ng/mL NT-Pro-B Natriuret Pep 1520 H (<125) pg/mL Total Protein 7.8 (6.3-8.2) g/dL Albumin 5.1 H (3.5-5.0) g/dL Globulin 2.7 (1.7-4.1) g/dL Albumin/Globulin Ratio 1.9 (1.0-2.8) Lipase 51 (23-300) U/L TSH 0.512 (0.47-4.68) uIU/mL Urine Dip Bedside Urine Glucose Negative Bedside Urine Bilirubin - Negative Bedside Urine Ketone +/- 5 Urine Specific [place] 1.005 Bedside Urine Occult Blood - Negative Bedside Urine pH 6.0 Bedside Urine Protein - Negative Bedside Urine Urobilinogen - Negative Bedside Urine Nitrite - Negative Bedside Urine Leukocytes - Negative Esterase Imaging Data Chest x-ray: Radiologist's Impresson: [address] [id number] XRay Report Signed Patient: Kathya Keenan MR#: [id number] : 1950 Acct:[id number] Age/Sex: 73 / F Date of Service: 02/20/24 Loc: ED Accession Number: [id number] Procedure: XR chest 1V Ordering Provider: Jessica Khanna D.O. PROCEDURE: XR CHEST 1V INDICATIONS: atrial fibrillation TECHNIQUE: One view of the chest was acquired. COMPARISON: [facility], , XR CHEST 1V, 02/16/2024, 17:36. FINDINGS: Surgical changes and devices: None. Lungs and pleura: Hyperexpanded lung volumes. Bibasilar interstitial prominence, unchanged Lungs are clear. No pleural effusions or pneumothorax. Mediastinum: Mediastinal contours appear normal. Heart size is normal. Bones and chest wall: No suspicious bony lesions. Overlying soft tissues appear unremarkable. IMPRESSION: No acute cardiopulmonary abnormality is seen. Bibasilar chronic interstitial markings likely reflect chronic lung disease. Dictated by: Zack Nunez M.D. on 02/20/2024 at 18:14 Approved by: Zack Nunez M.D. on 02/20/2024 at 18:15 ECG Data Attestation: I personally reviewed and interpreted this ECG as follows: Prior ECG tracings: available for review Interpretation: AFib with rapid response with a rate of 105 QRS of 90 QTC of 467. Patient has a little bit of nonspecific change in V5 6, no elevation appreciated. Patient has prior from 02/16/2024 which overall appears similar except for nonspecific change V5 and 6. EKG 2. Sinus rhythm with first-degree AV block rate of 60 CA 218 QRS 80 QTC 454. No acute ST changes appreciated. MDM Narrative Medical decision making narrative: 73-year-old female sent by Cardiology for cardioversion. Patient had a recent cardioversion on 02/16/2024 had 2 attempts the 1st 1 prior to amiodarone was unsuccessful, 2nd was successful but patient has returned to atrial fibrillation since. She did appear to be in congestive heart failure received Lasix 20 mg daily as well as increasing her amiodarone 400 mg daily on the . Cardiology had called ahead spoke with the on-call physician during the day who recommended that she be increased to 400 mg b.i.d. with the attempted cardioversion here today. Labs show white count 11.5 hemoglobin of 12.1 platelets of 331, INR is 1.5, sodium is 127 potassium 3.1 chloride 91 creatinine is 1.49 with a BUN of 31, calcium is 10.6 with AST of 36, TSH is Patient received oral replacement here in the department. Troponin is negative B[place] [id number]. Chest x-ray showed no acute change EKG shows AFib rapid response but no significant ST changes. Discussed with Cardiology patient does have some electrolyte abnormalities that are likely contributing to her atrial fibrillation today. She does have a little bit of a bump in her creatinine likely from her recent Lasix. She does have an echo that showed EF of 60-65% normal left ventricular wall motion with mild mitral regurg and mild tricuspid regurg with no pericardial effusion or pleural effusion November of 2023. Spoke with Dr. Ortiz, cardiology: Recommends oral potassium supplementation, attempting cardioversion in up unsuccessful can give 150 mg amiodarone and attempt to 2nd time. If successful patient is to be increased to 400 mg p.o. b.i.d. of amiodarone to continue with her Lasix but add potassium supplementation. Cardioversion was laid to allow for some absorption of potassium. Patient was given fluids at 1:50 a.m.. She has been taking her apixaban regularly is otherwise appropriate for cardioversion and after 2 shocks appeared to cardiovert to sinus rhythm. She is supposed to increase her amiodarone 400 mg twice daily, patient like to take her evening dose at home she notes that she already has a new prescription filled and does not need refill. We will also give some potassium supplementation with her Lasix as this likely contributed to her recurrent atrial fibrillation. Patient ambulated without issue felt safe for disposition home. Discharged home with her . Discharge Plan Departure Clinical Impression: Atrial fibrillation with rapid ventricular response, Hypokalemia Activity Restrictions/Additional Instructions: Follow up with Cardiology for recheck. Your labs did show your potassium was low, this is likely related to your diuretic which causes you to urinate out your potassium. Takes potassium supplement while taking Lasix/furosemide. A prescription was sent to [facility]. Cardiology would also like you to increase your amiodarone to 400 mg twice daily. Take your next dose tonight when you return home. Please return for recurrent symptoms, new chest pain or shortness of breath, lightheadedness or passing out, increasing swelling of extremities or other new or concerning changes. Prescriptions: New potassium chloride 20 mEq tablet extended release 20 meq PO DAILY Qty: 10 0RF No Action atorvastatin [Lipitor] 10 MG tablet 20 mg PO HS Qty: 0 Multimineral/Multivitamin (THERAGRAN M ) 1 tab PO QDAY Qty: 0 melatonin 3 MG tablet 6 mg PO HS Qty: 0 calcium carbonate-vitamin D3 [Oyster Shell Calcium-Vit D3] 1,250 MG/200 IU tablet 500 mg PO [facility] Qty: 0 amiodarone 400 mg tablet 400 mg PO DAILY Qty: 30 0RF furosemide 20 mg tablet 20 mg PO DAILY Qty: 10 0RF losartan 50 mg tablet 25 mg PO DAILY Patient Comments: take 1 tablet by mouth once daily trospium 60 mg capsule,extended release 24hr 60 mg PO BID Patient Comments: take 1 capsule by mouth twice a day gabapentin 300 mg capsule 900 mg PO ONCE PM dimethyl fumarate 240 mg capsule,delayed release(DR/EC) 240 mg PO BID bupropion HCl 150 mg tablet extended release 24 hr 150 mg PO QAM bupropion HCl [Wellbutrin XL] 150 mg Tablet Extended Release 24 Hr 150 mg PO DAILY Qty: 30 0RF apixaban 5 mg tablet 5 mg PO BID Qty: 60 2RF metoprolol tartrate 50 mg Tablet 50 mg PO BID Qty: 60 2RF amiodarone 400 mg tablet 400 mg PO BID Qty: 60 1RF Rx Instructions: Take 400 mg BID for 1 week, then 400 mg daily thereafter until follow up with Dr Bundy of cardiology (within 2 weeks) Referrals: Pooja Yusuf ARNP [Primary Care Provider] - Melody Bundy MD [Physician] -
[2024-02-20 18:46] LABS: Alanine Aminotransferase 36 IU/L (<35); Albumin 5.1 g/dL (3.5-5.0); Albumin Globulin Ratio 1.9 (1.0-2.8); Alkaline Phosphatase 101 U/L (38-126); Aspartate Aminotransferase 34 IU/L (14-36); BUN Creatinine Ratio 20.8 (6-22); Bilirubin Total 0.6 mg/dL (0.2-1.3); Blood Urea Nitrogen 31 mg/dL (7-17); Calcium 10.6 mg/dL (8.4-10.2); Carbon Dioxide 24 mmol/L (22-32); Chloride 91 mmol/L (98-107); Estimated Glomerular Filt Rate 37 mL/min (>60); Globulin 2.7 g/dL (1.7-4.1); Glucose 88 mg/dL (80-110); HEMOLYSIS < 15 (0-50); Lipase 51 U/L (23-300); Potassium 3.1 mmol/L (3.4-5.1); Sodium 127 mmol/L (137-145); Total Protein 7.8 g/dL (6.3-8.2)
--- NOTE | 2024-02-20 18:52 | DI.RAD.S_ITS ---
PROCEDURE: XR CHEST 1V INDICATIONS: atrial fibrillation TECHNIQUE: One view of the chest was acquired. COMPARISON: [facility], CR, XR CHEST 1V, 02/16/2024, 17:36. FINDINGS: Surgical changes and devices: None. Lungs and pleura: Hyperexpanded lung volumes. Bibasilar interstitial prominence, unchanged Lungs are clear. No pleural effusions or pneumothorax. Mediastinum: Mediastinal contours appear normal. Heart size is normal. Bones and chest wall: No suspicious bony lesions. Overlying soft tissues appear unremarkable. IMPRESSION: No acute cardiopulmonary abnormality is seen. Bibasilar chronic interstitial markings likely reflect chronic lung disease. Dictated by: Zack Nunez M.D. on 02/20/2024 at 18:14 Approved by: Zack Nunez M.D. on 02/20/2024 at 18:15
--- NOTE | 2024-02-20 18:56 | PC.NURSE ---
Pt states she felt her heart beating fast and called racebook writer thinking that she was in afib rvr. pt referred to ED.
[2024-02-20 19:18] LABS: Thyroid Stimulating Hormone 0.512 uIU/mL (0.47-4.68)
[2024-02-20 19:26] LABS: NT-proBNP (BNP-Adult 18+) 1520 pg/mL (<125); Troponin I < 0.012 ng/mL (0.01-0.034)
[2024-02-20] MEDS: POTASSIUM CHLORIDE 20 MEQ TAB 40 MEQ PO (19:34)
[2024-02-20] MEDS: propofoL 200 MG/20 ML VIAL 70 MG IV (21:37)
--- NOTE | 2024-02-20 21:45 | PC.NURSE ---
After first shock of 200j, patient converted to NSR for about 15 seconds before returning to A.fib.
--- NOTE | 2024-02-20 21:45 | PC.NURSE ---
After 2nd shock of 200J patient is in Normal Sinus Rhythm and remains so at this time.
== END 2024-02-20 23:00 | disposition home or self-care (01) ==
PROVIDERS: Emergency Medicine; Emergency Provider Emergency Medicine; PCP Registered Nurse
DX: I48.91 Unspecified atrial fibrillation (principal); E87.6 Hypokalemia; Z79.01 Long term (current) use of anticoagulants
CPT/HCPCS: 36415; 71045; 80053; 81003; 83690; 83735; 83880; 84443; 84484; 85025; 92960; 93005; 99152; 99153; 99285; J2704

== ENCOUNTER 2024-03-01 10:36 | Emergency (ER) | payer MEDICARE, OTHER, SELFPAY ==
[2023-11-24 01:03] VITALS: BMI 29.5
[2024-03-01] VITALS (30 sets, daily range): BP systolic 88–141; BP diastolic 50–65; PULSE 63–113; RESP 7–28; TEMP 36.6; O2SAT 92–99; BMI 25.7
--- NOTE | 2024-03-01 10:37 | DI.RAD.S_ITS ---
PROCEDURE: XR CHEST 1V INDICATIONS: sent for cardioversion,. aflutter TECHNIQUE: One view of the chest was acquired. COMPARISON: [facility], CR, XR CHEST 1V, 02/20/2024, 18:52. [facility], CR, XR CHEST 1V, 02/16/2024, 17:36. FINDINGS: Surgical changes and devices: None. Lungs and pleura: Senescent lung markings again seen. No new consolidation or pleural effusion Mediastinum: Cardiomediastinal contours are unchanged Bones and chest wall: Degenerative findings IMPRESSION: There are senescent lung markings. No acute consolidation or pleural effusions. No significant change. Dictated by: Everardo Sandoval M.D. on 03/01/2024 at 11:34 Approved by: Everardo Sandoval M.D. on 03/01/2024 at 11:35
[2024-03-01 11:32] LABS: Add Manual Diff / Slide Review NO; Basophils Absolute Auto 100 /uL (0-100); Basophils Percent Auto 1.1 % (0-2); Eosinophils Absolute Auto 200 /uL (0-450); Hematocrit 35.6 % (36-46); Hemoglobin 11.6 g/dL (12.0-16.0); Lymphocytes Absolute Auto 1200 /uL (1100-4500); Lymphocytes Percent Auto 11.1 % (25-40); Mean Corpuscular HGB Conc 32.8 % (30-36); Mean Corpuscular Hemoglobin 30.3 PG (26-34); Mean Corpuscular Volume 92.4 fL (80-100); Monocytes Absolute Auto 1200 /uL (0-900); Monocytes Percent Auto 10.9 % (3-14); Neutrophils Absolute Auto 8300 /uL (1500-7000); Neutrophils Percent Auto 74.9 % (50-75); Platelet Count 360 X10^3/uL (150-400); Red Blood Cell Count 3.85 X10^6/uL (4.0-5.2); Red Cell Distribution Width 14.7 % (11.6-14.8); White Blood Cell Count 11.1 X10^3/uL (4.5-11.0)
[2024-03-01] MEDS: SODIUM CHLORIDE 0.9% FLUSH 10 ML IV ×3 (11:34→11:40)
[2024-03-01 11:38] LABS: INR 1.4 (0.9-1.3); Prothrombin Time 15.7 SECONDS (9.4-12.5)
[2024-03-01] MEDS: SODIUM CHLORIDE 0.9% 1,000 ML 1000 ML IV (11:39)
[2024-03-01 11:40] LABS: PTT Partial Thromboplastin Tim 43 SECONDS (25.1-36.5)
[2024-03-01 11:44] LABS: Alanine Aminotransferase 35 IU/L (<35); Albumin 4.7 g/dL (3.5-5.0); Alkaline Phosphatase 70 U/L (38-126); Aspartate Aminotransferase 36 IU/L (14-36); BUN Creatinine Ratio 13.7 (6-22); Bilirubin Total 0.5 mg/dL (0.2-1.3); Blood Urea Nitrogen 20 mg/dL (7-17); Calcium 9.8 mg/dL (8.4-10.2); Carbon Dioxide 29 mmol/L (22-32); Chloride 93 mmol/L (98-107); Creatine Kinase 44 U/L (30-135); Estimated Glomerular Filt Rate 38 mL/min (>60); Globulin 2.4 g/dL (1.7-4.1); Glucose 100 mg/dL (80-110); HEMOLYSIS 34 (0-50); Lipase 43 U/L (23-300); Magnesium 2.1 mg/dL (1.6-2.3); Potassium 4.1 mmol/L (3.4-5.1); Sodium 128 mmol/L (137-145); Total Protein 7.1 g/dL (6.3-8.2)
[2024-03-01 11:53] LABS: NT-proBNP (BNP-Adult 18+) 4990 pg/mL (<125)
[2024-03-01 11:54] LABS: Bilirubin Urine UA NEGATIVE (NEGATIVE); Color Urine UA YELLOW; Glucose Urine UA NEGATIVE (Negative); Ketones Urine UA NEGATIVE (NEGATIVE); Leukocyte Esterase Urine UA TRACE (NEGATIVE); Nitrite Urine UA NEGATIVE (Negative); Occult Blood Urine UA NEGATIVE (Negative); Protein Urine UA NEGATIVE (Negative); Specific Gravity Urine UA <=1.005 (1.000-1.035); Urobilinogen Urine UA 0.2 E.U./dL (0.2)
[2024-03-01 11:56] LABS: Troponin I < 0.012 ng/mL (0.01-0.034)
[2024-03-01 12:06] LABS: Appearance Urine UA CLOUDY; Urine Volume 10mL (spun); pH Urine UA 5.5 (4.5-8.0)
[2024-03-01 12:07] LABS: Bacteria Urine Many (>30); Culture Indicated Urine Specimen Cultured; RBC Urine None Seen (0-5/HPF); Squamous Epithelial Cell Urine None Seen (0-5/HPF); WBC Urine 0-1/HPF (0-5/HPF)
--- NOTE | 2024-03-01 12:31 | ED.ARRPALP ---
HPI - Arrhythmia/Palpitations General Chief Complaint: Arrhythmia/Palpitations Stated Complaint: sent by needs to be reverted Time Seen by Provider: 03/01/24 10:37 Source: patient Mode of arrival: Ambulatory Limitations: no limitations History of Present Illness HPI narrative: This is a 73-year-old female with history of atrial fibrillation/flutter, hypertension, dyslipidemia, CHF on Eliquis daily as well as amiodarone has had 3 cardioversions in the past month and a half. Patient presents in recurrent atrial flutter after seeing her chemical process engineer today. He told her to come to the ER to be cardioverted. Patient has been scheduled for an ablation but not until April 05. She states the last 1 which was performed by myself on the 15 of February lasted for about a week. She was hypokalemic at that time and did have replacement and was started on potassium along with her furosemide. Patient was told to stop her potassium and furosemide today is Dr. Bundy suspect she may have some component of dehydration. Patient denies any syncope she has had some mild lightheadedness. She denies any chest pain she does feel little short of breath more exertional she can get around the house but has been more difficult. She denies any swelling in her extremities recently she states that has been much improved. She denies any fevers or chills cold cough or congestion no nausea or vomiting. She has not had any prior ablation, no cardiac stents. No tobacco, alcohol or recreational drugs. Does have a known family history of coronary artery disease. Related Data Home Medications Medication Instructions Recorded Confirmed Multimineral/Multivitamin 1 tab PO QDAY ##0 05/20/13 11/24/23 (THERAGRAN M ) atorvastatin 10 mg tablet (Lipitor) 20 mg PO HS ##0 05/20/13 11/24/23 calcium carbonate 500 mg-vitamin 500 mg PO [facility] ##0 05/20/13 11/24/23 D3 5 mcg (200 unit) tablet (Oyster Shell Calcium-Vitamin D3) melatonin 3 mg tablet 6 mg PO HS ##0 05/20/13 11/24/23 losartan 50 mg tablet 25 mg PO DAILY 09/17/21 11/24/23 trospium 60 mg capsule,extended 60 mg PO BID 09/17/21 11/24/23 release 24 hr bupropion HCl 150 mg 24 hr tablet, 150 mg PO QAM depressive disorder 11/24/23 11/24/23 extended release dimethyl fumarate 240 mg 240 mg PO BID 11/24/23 11/24/23 capsule,delayed release gabapentin 300 mg capsule 900 mg PO ONCE PM 11/24/23 11/24/23 Previous Rx's Medication Instructions Recorded amiodarone 400 mg tablet 400 mg PO BID #60 tabs 11/24/23 apixaban 5 mg tablet 5 mg PO BID #60 tabs 11/24/23 bupropion HCl 150 mg 24 hr tablet, 150 mg PO DAILY #30 tabs 11/24/23 extended release (Wellbutrin XL) metoprolol tartrate 50 mg tablet 50 mg PO BID #60 tabs 11/24/23 amiodarone 400 mg tablet 400 mg PO DAILY #30 tabs 02/16/24 furosemide 20 mg tablet 20 mg PO DAILY #10 tabs 02/16/24 potassium chloride 20 mEq 20 meq PO DAILY #10 tabs 02/20/24 tablet,extended release Allergies Allergy/AdvReac Type Severity Reaction Status Date / Time codeine Allergy Severe Hives and Verified 03/01/24 10:41 nausea/vomiting Review of Systems Review of Systems ROS Unobtainable: All systems reviewed & are unremarkable except as noted in HPI and below Patient History Social History household members: spouse Smoking Status: Never smoker alcohol intake: current Smoking Status: Never smoker alcohol intake frequency: holidays/special occasions only Alcohol type: wine Substance Use Type: does not use Exam Narrative Exam Narrative: GENERAL: Alert and oriented x three, female in mild distress HEENT: Head normocephalic, atraumatic, EOMI, pupils reactive, face symmetric, moist mucous membranes NECK: Supple, full range of motion CARDIOVASCULAR: Tachycardic fairly regular rate and rhythm without murmurs, rubs or gallops. Positive JVD no edema bilateral lower extremities. RESPIRATORY: Breath sounds equal bilaterally, no wheezes rales or rhonchi. No tachypnea or accessory muscle use. ABDOMEN: Soft, nontender. Normoactive bowel sounds all 4 quadrants. No guarding or rebound, rigidity, no mass : No CVA tenderness EXTREMITIES: Normal range of motion, no clubbing or edema. Neurovascularly intact NEUROLOGICAL: Cranial nerves II through XII grossly intact. Moving all extremities SKIN: Warm, dry, no petechiae, no rashes or lesions. Initial Vital Signs Initial Vital Signs: Vital Signs Temperature 97.8 F 03/01/24 10:42 Pulse Rate 112 H 03/01/24 10:42 Respiratory Rate 15 03/01/24 10:42 Blood Pressure 113/63 03/01/24 10:42 Pulse Oximetry 99 03/01/24 10:42 Oxygen Delivery Method Room Air 03/01/24 10:42 Procedures Cardioversion Consent Signed: Yes Indication: Atrial fibrillation RVR Stability: Stable Number of attempts (shocks): 1 Joules used: 200 Cardiac rhythm post-cardioversion: nsr Procedural Sedation Consent signed: Yes Time out performed: Yes Indication: cardioversion ASA Class: II Mallampati Airway Classification: Class II Time of Last PO Intake: 21:00 (yesterday) Preparation: manager of finance applied, capnometry used, supplemental O2 applied, suction/airway equipment at bedside and IV secured IV Etomidate dose (mg): 6.8 ED Sedation Level: Moderate (Concious) Patient Tolerated Procedure: Well and No complications Complications: none Course Orders Ordered: ED Orders 03/01/24 10:37 XR chest 1V Stat 03/01/24 11:02 EKG-12 Lead Stat 03/01/24 11:18 Complete Blood Count AUTO DIFF Stat Comprehensive Metabolic Panel Stat Lipase Stat MAG [Magnesium] Stat NT-proBNP (BNP-Adult 18+) Stat PTT Partial Thromboplastin Jay Stat Prothrombin Time INR Stat Troponin & CK Cardiac Panel Stat 03/01/24 11:50 Urinalysis and Microscopic Stat Urine Culture Stat 03/01/24 12:50 EKG-12 Lead Routine 03/01/24 15:32 EKG-12 Lead Routine Sodium Chloride (Normal Saline 0.9%) 1,000 mls @ 150 mls/hr IV CONT DARCY Discontinued Medications Etomidate (Etomidate 2 Mg/Ml 10 Ml Vial) 6.8 mg 0.1 mg/kg (6.8 mg) IV NOW ONE Stop: 03/01/24 15:01 Last Admin: 03/01/24 15:21 Dose: 6.8 mg Documented By: JPrachi Sodium Chloride (Normal Saline 0.9%) 1,000 mls @ 1,000 mls/hr IV BOLUS ONE Stop: 03/01/24 12:36 Last Infusion: 03/01/24 12:11 Dose: Infused Documented By: Admin: 03/01/24 11:39 Dose: 1,000 mls/hr Documented By: DOUGLAS Sodium Chloride (Normal Saline 0.9%) 500 mls @ 1,000 mls/hr IV BOLUS ONE Stop: 03/01/24 14:15 Sodium Chloride (Sodium Chloride 0.9% Flush) 10 ml IV BID DARCY Last Admin: 03/01/24 11:40 Dose: 10 ml Documented By: DOUGLAS Sodium Chloride (Sodium Chloride 0.9% Flush) 10 ml IV PRN PRN PRN Reason: Flush Last Admin: 03/01/24 11:40 Dose: 10 ml Documented By: Admin: 03/01/24 11:34 Dose: 10 ml Documented By: DOUGLAS Vital Signs Vital signs: Vital Signs - 8 hr 03/01/24 10:42 03/01/24 10:49 03/01/24 11:00 Temperature 97.8 F Pulse Rate 112 H 111 H 111 H Respiratory Rate 15 12 Blood Pressure 113/63 88/50 L Pulse Oximetry 99 97 99 Oxygen Delivery Method Room Air 03/01/24 11:18 03/01/24 11:18 03/01/24 11:26 Temperature Pulse Rate 113 H 109 H Respiratory Rate 16 15 Blood Pressure 93/50 L Pulse Oximetry 99 97 Oxygen Delivery Method 03/01/24 11:26 03/01/24 11:30 03/01/24 11:30 Temperature Pulse Rate 107 H Respiratory Rate 11 L Blood Pressure 98/63 98/58 L Pulse Oximetry 97 Oxygen Delivery Method 03/01/24 11:35 03/01/24 11:35 03/01/24 11:40 Temperature Pulse Rate 107 H Respiratory Rate 16 Blood Pressure 101/55 L 103/55 L Pulse Oximetry 96 Oxygen Delivery Method 03/01/24 11:40 03/01/24 11:47 03/01/24 11:47 Temperature Pulse Rate 105 H 106 H Respiratory Rate 16 14 Blood Pressure 109/63 Pulse Oximetry 95 95 Oxygen Delivery Method 03/01/24 11:50 03/01/24 11:50 03/01/24 11:55 Temperature Pulse Rate 107 H 106 H Respiratory Rate 16 11 L Blood Pressure 107/61 Pulse Oximetry 99 97 Oxygen Delivery Method 03/01/24 11:55 03/01/24 12:00 03/01/24 12:00 Temperature Pulse Rate 105 H Respiratory Rate 7 L Blood Pressure 104/63 114/65 Pulse Oximetry 92 Oxygen Delivery Method 03/01/24 12:05 03/01/24 12:05 03/01/24 12:30 Temperature Pulse Rate 108 H Respiratory Rate 15 Blood Pressure 104/60 109/63 Pulse Oximetry 98 Oxygen Delivery Method 03/01/24 12:30 03/01/24 13:00 03/01/24 13:00 Temperature Pulse Rate 109 H 109 H Respiratory Rate 15 Blood Pressure 101/59 L Pulse Oximetry 99 97 Oxygen Delivery Method 03/01/24 13:30 03/01/24 13:30 03/01/24 13:47 Temperature Pulse Rate 109 H 109 H Respiratory Rate 15 13 Blood Pressure 103/59 L Pulse Oximetry 98 98 Oxygen Delivery Method 03/01/24 13:47 03/01/24 14:00 03/01/24 14:00 Temperature Pulse Rate 109 H Respiratory Rate 12 Blood Pressure 104/56 L 99/54 L Pulse Oximetry 99 Oxygen Delivery Method 03/01/24 14:30 03/01/24 14:30 03/01/24 15:00 Temperature Pulse Rate 108 H Respiratory Rate 12 Blood Pressure 110/57 L 111/63 Pulse Oximetry 99 Oxygen Delivery Method 03/01/24 15:00 03/01/24 15:25 03/01/24 15:25 Temperature Pulse Rate 109 H 63 Respiratory Rate 13 14 Blood Pressure 141/65 H Pulse Oximetry 99 99 Oxygen Delivery Method 03/01/24 15:26 03/01/24 15:26 03/01/24 15:27 Temperature Pulse Rate 63 63 Respiratory Rate 19 16 Blood Pressure 124/58 L Pulse Oximetry 98 98 Oxygen Delivery Method 03/01/24 15:27 03/01/24 15:28 03/01/24 15:28 Temperature Pulse Rate 63 Respiratory Rate 10 L Blood Pressure 125/56 L 114/58 L Pulse Oximetry 99 Oxygen Delivery Method 03/01/24 15:29 03/01/24 15:29 03/01/24 15:30 Temperature Pulse Rate 63 64 Respiratory Rate 12 13 Blood Pressure 111/56 L Pulse Oximetry 98 97 Oxygen Delivery Method 03/01/24 15:30 03/01/24 15:40 03/01/24 16:00 Temperature Pulse Rate 64 Respiratory Rate 16 Blood Pressure 105/52 L 101/52 L Pulse Oximetry Oxygen Delivery Method 03/01/24 16:00 03/01/24 16:21 03/01/24 16:21 Temperature Pulse Rate 63 67 Respiratory Rate 10 L 28 H Blood Pressure 112/51 L Pulse Oximetry 97 97 Oxygen Delivery Method MDM - Arrhythmia/Palpitations Lab Data 03/01/24 11:18 03/01/24 11:18 Labs: Lab Results 03/01/24 03/01/24 Range/Units 11:18 11:50 WBC 11.1 H (4.5-11.0) X10^3/uL RBC 3.85 L (4.0-5.2) X10^6/uL Hgb 11.6 L (12.0-16.0) g/dL Hct 35.6 L (36-46) % MCV 92.4 (80-100) fL MCH 30.3 (26-34) PG MCHC 32.8 (30-36) % RDW 14.7 (11.6-14.8) % Plt Count 360 (150-400) X10^3/uL Neut % (Auto) 74.9 (50-75) % Lymph % (Auto) 11.1 L (25-40) % [place] % (Auto) 10.9 (3-14) % Eos % (Auto) 2.0 (2-4) % Baso % (Auto) 1.1 (0-2) % Neut # (Auto) 8300 H (2146-8874) /uL Lymph # (Auto) 1200 (5352-9670) /uL [place] # (Auto) 1200 H (0-900) /uL Eos # (Auto) 200 (0-450) /uL Baso # (Auto) 100 (0-100) /uL PT 15.7 H (9.4-12.5) SECONDS INR 1.4 H (0.9-1.3) APTT 43 H (25.1-36.5) SECONDS Sodium 128 L (137-145) mmol/L Potassium 4.1 (3.4-5.1) mmol/L Chloride 93 L (98-107) mmol/L Carbon Dioxide 29 (22-32) mmol/L BUN 20 H (7-17) mg/dL Creatinine 1.46 H (0.52-1.04) mg/dL Estimated GFR 38 L (>60) mL/min BUN/Creatinine Ratio 13.7 (6-22) Glucose 100 (80-110) mg/dL Calcium 9.8 (8.4-10.2) mg/dL Magnesium 2.1 (1.6-2.3) mg/dL Total Bilirubin 0.5 (0.2-1.3) mg/dL AST 36 (14-36) IU/L ALT 35 H (<35) IU/L Alkaline Phosphatase 70 (38-126) U/L Total Creatine Kinase 44 (30-135) U/L Troponin I < 0.012 (0.01-0.034) ng/mL NT-Pro-B Natriuret Pep 4990 H (<125) pg/mL Total Protein 7.1 (6.3-8.2) g/dL Albumin 4.7 (3.5-5.0) g/dL Globulin 2.4 (1.7-4.1) g/dL Albumin/Globulin Ratio 2.0 (1.0-2.8) Lipase 43 (23-300) U/L Urine Color Yellow Urine Appearance Cloudy Urine pH 5.5 (4.5-8.0) Ur Specific [place] <=1.005 (1.000-1.035) Urine Protein Negative (Negative) Urine Glucose (UA) Negative (Negative) g/dL Urine Ketones Negative (NEGATIVE) Urine Occult Blood Negative (Negative) Urine Nitrate Negative (Negative) Urine Bilirubin Negative (NEGATIVE) Urine Urobilinogen 0.2 (0.2) E.U./dL Ur Leukocyte Esterase Trace H (NEGATIVE) Urine RBC None seen (0-5/HPF) Urine WBC 0-1/hpf (0-5/HPF) Ur Squamous Epith Cells None seen (0-5/HPF) Urine Bacteria Many (>30) H (None) Ur Culture Indicated? Specimen cultured Vol Urine Centrifuged 10ml (spun) Imaging Data Chest x-ray: Radiologist's Impresson: Kathya Keenan??73??F??1950 ? Allergy/Adv: codeine Close Chest X-Ray (Signed) Everardo Sandoval - 03/01/24 Chest X-Ray (Signed) Zack Nunez - 02/20/24 Chest X-Ray (Signed) Zhang Altman - 02/16/24 Chest CTA (Signed) Nayan Moise - 11/23/23 Echocardiogram Ultrasound (Signed) Ankush Rodriguez - 11/23/23 Telemetry Strips 11/23/23 Chest X-Ray (Signed) Zhang Altman - 11/23/23 Mammogram Screening (Signed) Balwinder Smallwood - 11/16/23 Bone Densitometry (Signed) Benja Tamayo - 11/16/23 Chest X-Ray (Signed) Luis Red - 08/23/23 Telemetry Strips 08/23/23 Chest X-Ray (Signed) Emre Garcia - 03/06/23 Radiology Report (Cancelled) Aggie Ortiz - 12/15/22 Echocardiogram Ultrasound (Signed) Jenniffer Vines - 12/15/22 Modified Barium Swallow (Signed) Emre Garcia - 05/21/21 Mammogram Screening (Signed) Jeremy Godoy - 11/22/20 Abdomen Ultrasound (Signed) Satish Venegas - 04/02/20 Chest X-Ray (Signed) Marina Aburto - 04/02/20 Mammogram Screening (Signed) Balwinder Smallwood - 11/08/19 Mammogram Screening (Signed) David Stroud - 10/13/18 [address] [address] XRay Report Signed Patient: Kathya Keenan MR#: [id number] : 1950 Acct:[id number] Age/Sex: 73 / F Date of Service: 03/01/24 Loc: ED Accession Number: [id number] Procedure: XR chest 1V Ordering Provider: Jessica Khanna D.O. PROCEDURE: XR CHEST 1V INDICATIONS: sent for cardioversion,. aflutter TECHNIQUE: One view of the chest was acquired. COMPARISON: [facility], CR, XR CHEST 1V, 02/20/2024, 18:52. [facility], CR, XR CHEST 1V, 02/16/2024, 17:36. FINDINGS: Surgical changes and devices: None. Lungs and pleura: Senescent lung markings again seen. No new consolidation or pleural effusion Mediastinum: Cardiomediastinal contours are unchanged Bones and chest wall: Degenerative findings IMPRESSION: There are senescent lung markings. No acute consolidation or pleural effusions. No significant change. Dictated by: Everardo Sandoval M.D. on 03/01/2024 at 11:34 Approved by: Everardo Sandoval M.D. on 03/01/2024 at 11:35 ECG Data Attestation: I personally reviewed and interpreted this ECG as follows: Interpretation: Sinus tachycardia rate of 112 MI 180 QRS of 90 QTC [address] No acute ST elevation. Patient has prior EKGs all shows atrial fibrillation with RVR, patient's today looks almost like sinus rate has been variable but does look less like atrial flutter. EKG 2. Atrial flutter 2-1 rate of 108 QRS 86 QTC of 474. EKG 3. Sinus rhythm first-degree AV block rate of 64 MI 230 QRS is 76 QTC of 420. No acute ST changes. MDM Narrative Medical decision making narrative: 73-year-old female sent by her chemical process engineer for cardioversion. Patient has had 3 cardioversions 2 of them in the past month she has known atrial fib/flutter has been scheduled for an ablation in the 05 of April. States last 1 lasted about a week at that time she has been hypokalemic. It was performed by myself. Was noted patient's pressure has been lower today, on her prior visit she has been more hypertensive even with her tachycardia. She received a L bolus which had some improvement but not resolution. Patient's labs show white count 11.1, hemoglobin of 11 similar to prior platelets of 360 INR 1.4 patient does note she is taking her Eliquis daily, creatinine of 1.46 comparable to prior on last visit, BUN 20 with a glucose of 100 sodium is 128 potassium 4 1 with a Mag of 2.1, troponins less than 0.12 with a BNP of 4990. Patient's last was 1520 and before that was 10,000, chest x-ray shows senescent changes but no other clear changes. She had an echo on November 2023 that showed an EF of 60 65% with normal left ventricular wall motion, mild mitral regurg mild tricuspid regurg with no pericardial effusion or pleural effusion. Spoke with Dr. Bundy who requests cardioversion for the patient, patient's potassium magnesium or more appropriate today troponin is negative BNP is somewhat up. Blood pressure has been a little on the lower side she was given a L fluid as she probably has a little bit component of dehydration but also probably component of congestive heart failure. This did improve her pressure and she received another 500 bolus. After discussion patient would like to pursue cardioversion we did discuss that with each subsequent cardioversion this frequency may not be effective. Patient and family both expressed their understanding. Discussed risks versus benefits and plan for cardioversion. Patient had differential 0.5 L of saline pressure continues to improve. Discussed with patient we will use etomidate today set of propofol as her pressures have been lower than typical. She is still interested she does note she has not had anything to eat since yesterday and has had very little to drink today as well. Patient tolerated procedure well cardioverted on repeat EKG is in sinus rhythm. Patient states she feels much improved. Discharge Plan Departure Patient Disposition: Home Clinical Impression: Atrial flutter with rapid ventricular response Activity Restrictions/Additional Instructions: Follow up with Cardiology, call Dr. Lino's office tomorrow you would benefit from having your ablation moved up to a sooner date then April. I did talk with your chemical process engineer today, continue your medications as they have directed. They did recommend you stop your potassium and Lasix for now. Please return for new or worsening symptoms increasing chest pain, shortness of breath, lightheadedness or passing out, persistently fast heart rate, increasing swelling extremities or other new or concerning changes. Prescriptions: No Action atorvastatin [Lipitor] 10 MG tablet 20 mg PO HS Qty: 0 Multimineral/Multivitamin (THERAGRAN M ) 1 tab PO QDAY Qty: 0 melatonin 3 MG tablet 6 mg PO HS Qty: 0 calcium carbonate-vitamin D3 [Oyster Shell Calcium-Vit D3] 1,250 MG/200 IU tablet 500 mg PO [facility] Qty: 0 amiodarone 400 mg tablet 400 mg PO DAILY Qty: 30 0RF furosemide 20 mg tablet 20 mg PO DAILY Qty: 10 0RF losartan 50 mg tablet 25 mg PO DAILY Patient Comments: take 1 tablet by mouth once daily trospium 60 mg capsule,extended release 24hr 60 mg PO BID Patient Comments: take 1 capsule by mouth twice a day gabapentin 300 mg capsule 900 mg PO ONCE PM dimethyl fumarate 240 mg capsule,delayed release(DR/EC) 240 mg PO BID bupropion HCl 150 mg tablet extended release 24 hr 150 mg PO QAM bupropion HCl [Wellbutrin XL] 150 mg Tablet Extended Release 24 Hr 150 mg PO DAILY Qty: 30 0RF apixaban 5 mg tablet 5 mg PO BID Qty: 60 2RF metoprolol tartrate 50 mg Tablet 50 mg PO BID Qty: 60 2RF amiodarone 400 mg tablet 400 mg PO BID Qty: 60 1RF Rx Instructions: Take 400 mg BID for 1 week, then 400 mg daily thereafter until follow up with Dr Bundy of cardiology (within 2 weeks) potassium chloride 20 mEq tablet extended release 20 meq PO DAILY Qty: 10 0RF Referrals: Mg Lino MD [Physician] - Pooja Yusuf ARNP [Primary Care Provider] - Melody Bundy MD [Physician] - Stand Alone Forms: Patient Portal/API
[2024-03-01] MEDS: ETOMIDATE 2 MG/ML 10 ML VIAL 6.8 MG IV (15:21)
== END 2024-03-01 16:30 | disposition home or self-care (01) ==
PROVIDERS: Emergency Provider Emergency Medicine; PCP Registered Nurse
DX: I48.92 Unspecified atrial flutter (principal); Z79.01 Long term (current) use of anticoagulants
CPT/HCPCS: 36415; 71045; 80053; 81001; 82550; 83690; 83735; 83880; 84484; 85025; 85610; 85730; 87077; 87086; 87186; 92960; 93005; 96360; 99285

== ENCOUNTER → 2024-03-22 09:59 | Outpatient (CLI) | payer MEDICARE, OTHER, SELFPAY ==
[2023-11-24 01:03] VITALS: BMI 29.5
--- NOTE | 2024-03-22 10:02 | DI.RAD.S_ITS ---
PROCEDURE: XR KNEE LT 3V INDICATIONS: KNEE PAIN TECHNIQUE: 3 views of the knee were acquired. COMPARISON: None. FINDINGS: Bones: No fractures or dislocations. Joint spaces are maintained. No suspicious bony lesions. Soft tissues: No joint effusion. No suspicious soft tissue calcifications. IMPRESSION: No acute bony abnormality or significant effusion. If clinical symptoms persist, consider repeat radiograph in 10-14 days versus cross-sectional imaging. Dictated by: Tucker Rascon M.D. on 03/22/2024 at 17:06 Approved by: Tucker Rascon M.D. on 03/22/2024 at 17:07
== END ==
PROVIDERS: PCP Registered Nurse; Referring Provider Registered Nurse; Visit Provider Registered Nurse
DX: S89.92XA Unspecified injury of left lower leg, initial encounter (principal); M25.562 Pain in left knee; W19.XXXA Unspecified fall, initial encounter
CPT/HCPCS: 73562

== ENCOUNTER → 2024-04-18 10:07 | Outpatient (CLI) | payer MEDICARE, OTHER, SELFPAY ==
[2023-11-24 01:03] VITALS: BMI 29.5
--- NOTE | 2024-04-18 10:23 | DI.NM.S_ITS ---
DATE OF SERVICE: 04/18/2024 Procedure: Pharmacologic vasodilator stress and rest myocardial perfusion imaging with gating to assess ejection fraction and regional wall motion. Ordering Provider: Dr. Fredi Bundy. Indications: The patient is a 74-year-old female with paroxysmal atrial fibrillation and fatigue. Cardiac Stress: Per protocol, 0.4 mg of regadenoson was infused, augmented by walking on the treadmill. With this, she had a normal hemodynamic response without chest discomfort and only mild dyspnea. Her resting ECG shows sinus rhythm with normal ST segments and there are no significant ST-segment shifts or arrhythmias with stress. Per protocol, 26.7 mCi of technetium-99m Myoview was injected and she was imaged 15 minutes later using a gated SPECT acquisition protocol. Earlier in the day while at rest, she had been injected with 12.0 mCi of technetium-99m Myoview and was imaged 15 minutes later, again using a gated SPECT acquisition protocol. FINDINGS: 1. Raw data: There is fairly good myocardial tracer uptake with subtle breast shadows noted. The lung/heart ratio is normal at 0.31 with a normal TID ratio of 0.71. 2. Quantitative gated SPECT: Post-stress ejection fraction is 85% without any focal wall motion abnormality. Resting ejection fraction is 71% with a normal resting end-diastolic volume of 80 mL. 3. Myocardial perfusion imaging: Post-stress supine images show a normal myocardial perfusion pattern without any concerning perfusion defects, supported by normal perfusion imaging in the prone position. The resting images show no areas of improvement. IMPRESSION: 1. Normal myocardial perfusion study. 2. No evidence of myocardial ischemia or previous myocardial infarction. 3. Normal left ventricular size and systolic function without focal wall motion abnormality. 4. No angina or ECG evidence of ischemia with pharmacologic vasodilator stress, augmented by low-level walking. She maintained sinus rhythm throughout without any arrhythmias. dd: 16:42:00 dt: DICTATING MD/COPIES TO:Ryley Prater MD
--- NOTE | 2024-04-22 10:40 | DI.NM.S_ITS ---
DATE OF SERVICE: 04/18/2024 PROCEDURE: Pharmacologic vasodilator stress and rest myocardial perfusion imaging with gating to assess ejection fraction and regional wall motion. ORDERING PROVIDER: Dr. Fredi Bundy. INDICATIONS: The patient is a 74-year-old female with paroxysmal atrial fibrillation and fatigue. CARDIAC STRESS: Per protocol, 0.4 mg of regadenoson was infused, augmented by walking on the treadmill. With this, she had a normal hemodynamic response without chest discomfort and only mild dyspnea. Her resting ECG showed sinus rhythm with normal ST segments and there are no significant ST-segment shifts or arrhythmias with stress. Per protocol, 26.7 mCi of technetium-99m Myoview was injected and she was imaged 15 minutes later using a gated SPECT acquisition protocol. Earlier in the day while at rest, she had been injected with 12.0 mCi of technetium-99m Myoview and was imaged 15 minutes later, again using a gated SPECT acquisition protocol. FINDINGS: 1. Raw data: There is fairly good myocardial tracer uptake with subtle breast shadows noted. 2. The lung/heart ratio is normal at 0.31 with a normal TID ratio of 0.71. 3. Quantitative gated SPECT: Post-stress ejection fraction is 85% without any focal wall motion abnormality. Resting ejection fraction is 71% with a normal resting end-diastolic volume of 80 mL. 4. Myocardial perfusion imaging: Post-stress supine images show a fairly normal myocardial perfusion pattern without any concerning perfusion defects, supported by normal perfusion imaging in the prone position. The resting images show no areas of improvement. IMPRESSION: 1. Normal myocardial perfusion study. 2. No evidence of myocardial ischemia or previous myocardial infarction. 3. Normal left ventricular size and systolic function without focal wall motion abnormality. 4. No angina or ECG evidence of ischemia with pharmacologic vasodilator stress, augmented by low-level walking. She maintained sinus rhythm throughout without any arrhythmias. Kathya Keenan - RS/fn/SD doc#: [id number]/job#: [id number] dd: 04/18/2024 16:42:00 dt: 04/18/2024 18:38:00 DICTATING MD/COPIES TO: Ryley Prater MD; Dr. Fredi Bundy COPIES MNE: ESPINOZA; ; Dr. Fredi Bundy
== END ==
PROVIDERS: PCP Registered Nurse; Referring Provider Internal Medicine Cardiovascular Disease; Visit Provider Internal Medicine Cardiovascular Disease
DX: I48.19 Other persistent atrial fibrillation (principal); R06.02 Shortness of breath
CPT/HCPCS: 78452; 93017; A9502; J2785

== ENCOUNTER 2024-04-26 20:11 | Emergency (ER) | payer MEDICARE, OTHER, SELFPAY ==
[2023-11-24 01:03] VITALS: BMI 29.5
[2024-04-26 20:17] VITALS: BP 188/80; PULSE 67; RESP 17; TEMP 37; O2SAT 95; BMI 23.1
--- NOTE | 2024-04-26 20:27 | DI.RAD.S_ITS ---
PROCEDURE: XR ANKLE RT MIN 3V INDICATIONS: twisted ankle now with pain TECHNIQUE: 3 views of the ankle were acquired. COMPARISON: None. FINDINGS: Bones: Acute slightly comminuted and nondisplaced fracture through 5th metatarsal base is seen with fracture line extending to 5th TMT joint. Ankle mortise is normally aligned. No suspicious bony lesions. Soft tissues: No tibiotalar joint effusion. Achilles tendon appears normal. IMPRESSION: No acute ankle fracture or dislocation. Comminuted nondisplaced fracture involving 5th metatarsal base as above. Dictated by: Surinder Chen M.D. on 04/26/2024 at 21:04 Approved by: Surinder Chen M.D. on 04/26/2024 at 21:06
[2024-04-26 20:43] VITALS: O2SAT 98
[2024-04-26 20:44] VITALS: BP 143/60; PULSE 66; O2SAT 98
--- NOTE | 2024-04-26 20:49 | ED.LOWEXIN ---
HPI - Extremity Injury (Lower) General Chief Complaint: Extremity Injury, Lower Stated Complaint: GLF Time Seen by Provider: 04/26/24 20:20 Source: patient and EMS Mode of arrival: Ambulatory History of Present Illness HPI Narrative: 74-year-old female with history of MS, AFib status post ablation presents by EMS from home for right ankle injury. Patient states that she frequently gets her foot caught and accidentally had an inversion injury. Reports pain and swelling to right ankle. No obvious deformity, palpable DP pulses Related Data Home Medications Medication Instructions Recorded Confirmed Multimineral/Multivitamin 1 tab PO QDAY ##0 05/20/13 11/24/23 (THERAGRAN M ) atorvastatin 10 mg tablet (Lipitor) 20 mg PO HS ##0 05/20/13 11/24/23 calcium carbonate 500 mg-vitamin 500 mg PO [facility] ##0 05/20/13 11/24/23 D3 5 mcg (200 unit) tablet (Oyster Shell Calcium-Vitamin D3) melatonin 3 mg tablet 6 mg PO HS ##0 05/20/13 11/24/23 losartan 50 mg tablet 25 mg PO DAILY 09/17/21 11/24/23 trospium 60 mg capsule,extended 60 mg PO BID 09/17/21 11/24/23 release 24 hr bupropion HCl 150 mg 24 hr tablet, 150 mg PO QAM depressive disorder 11/24/23 11/24/23 extended release dimethyl fumarate 240 mg 240 mg PO BID 11/24/23 11/24/23 capsule,delayed release gabapentin 300 mg capsule 900 mg PO ONCE PM 11/24/23 11/24/23 Previous Rx's Medication Instructions Recorded amiodarone 400 mg tablet 400 mg PO BID #60 tabs 11/24/23 apixaban 5 mg tablet 5 mg PO BID #60 tabs 11/24/23 bupropion HCl 150 mg 24 hr tablet, 150 mg PO DAILY #30 tabs 11/24/23 extended release (Wellbutrin XL) metoprolol tartrate 50 mg tablet 50 mg PO BID #60 tabs 11/24/23 amiodarone 400 mg tablet 400 mg PO DAILY #30 tabs 02/16/24 furosemide 20 mg tablet 20 mg PO DAILY #10 tabs 02/16/24 potassium chloride 20 mEq 20 meq PO DAILY #10 tabs 02/20/24 tablet,extended release hydrocodone 5 mg-acetaminophen 325 1 tab PO Q8H PRN pain #8 tabs 04/26/24 mg tablet Allergies Allergy/AdvReac Type Severity Reaction Status Date / Time codeine Allergy Severe Hives and Verified 03/01/24 10:41 nausea/vomiting Review of Systems Review of Systems Narrative: See HPI Patient History Social History household members: spouse Smoking Status: Never smoker alcohol intake: current Smoking Status: Never smoker alcohol intake frequency: holidays/special occasions only Alcohol type: wine Substance Use Type: does not use Exam Initial Vital Signs Initial Vital Signs: Vital Signs Temperature 98.6 F 04/26/24 20:17 Pulse Rate 67 04/26/24 20:17 Respiratory Rate 17 04/26/24 20:17 Blood Pressure 188/80 H 04/26/24 20:17 Pulse Oximetry 95 04/26/24 20:17 Oxygen Delivery Method Room Air 04/26/24 20:17 Const: Awake, alert, no acute distress, nontoxic appearing MSK: No obvious deformity, tenderness to palpation left lateral malleolar region and left lateral foot Skin: Warm, Dry, intact, no rashes Neuro: AO x3, CN II-XII grossly intact, moves all extremities Course Orders Ordered: ED Orders 04/26/24 20:27 XR ankle RT min 3V Stat Discontinued Medications Hydrocodone Bitart/Acetaminophen (Hydrocodone/Acet 5/325 Prepack) 1 bottle MISC DIRECTED ONE Stop: 04/26/24 21:47 Last Admin: 04/26/24 22:16 Dose: 1 bottle Documented By: NAVIN Oxycodone HCl (Oxycodone Ir 5 Mg Tablet) 5 mg PO NOW ONE Stop: 04/26/24 20:50 Last Admin: 04/26/24 21:07 Dose: 5 mg Documented By: NAVIN Vital Signs Vital signs: Vital Signs - 8 hr 04/26/24 20:17 04/26/24 20:43 04/26/24 20:44 Temperature 98.6 F Pulse Rate 67 66 Respiratory Rate 17 Blood Pressure 188/80 H Pulse Oximetry 95 98 98 Oxygen Delivery Method Room Air 04/26/24 20:44 04/26/24 21:00 04/26/24 21:00 Temperature Pulse Rate 66 Respiratory Rate 18 Blood Pressure 143/60 H 157/70 H Pulse Oximetry 96 Oxygen Delivery Method 04/26/24 21:30 04/26/24 21:30 Temperature Pulse Rate 68 Respiratory Rate Blood Pressure 147/67 H Pulse Oximetry 99 Oxygen Delivery Method MDM - Extremity Injury (Lower) Differential Diagnosis Differential diagnosis: Likely ankle sprain and strain, fracture of toe and ankle fracture Imaging Data Extremity x-ray #1: Radiologist's Impression: PROCEDURE: XR ANKLE RT MIN 3V INDICATIONS: twisted ankle now with pain TECHNIQUE: 3 views of the ankle were acquired. COMPARISON: None. FINDINGS: Bones: Acute slightly comminuted and nondisplaced fracture through 5th metatarsal base is seen with fracture line extending to 5th TMT joint. Ankle mortise is normally aligned. No suspicious bony lesions. Soft tissues: No tibiotalar joint effusion. Achilles tendon appears normal. IMPRESSION: No acute ankle fracture or dislocation. Comminuted nondisplaced fracture involving 5th metatarsal base as above. Dictated by: Surinder Chen M.D. on 04/26/2024 at 21:04 Approved by: Surinder Chen M.D. on 04/26/2024 at 21:06 [facility] Narrative Medical decision making narrative: Ankle inversion injury. Neurovascularly intact. X-rays show what appears to be a Shahid fracture. Patient placed in posterior ankle splint, given strict nonweightbearing instructions. Given crutches. Orthopedic referral provided. Discharge Plan Departure Patient Disposition: Home Clinical Impression: Fracture of 5th metatarsal Qualifiers: Encounter type: initial encounter Fracture type: closed Fracture alignment: nondisplaced Laterality: right Qualified Code(s): S92.354A - Nondisplaced fracture of fifth metatarsal bone, right foot, initial encounter for closed fracture Instructions: DI for Foot Fracture Activity Restrictions/Additional Instructions: It was extremely important that you bear no weight on your right foot unless otherwise instructed to by Orthopedic surgery. Take Tylenol and ibuprofen as needed for pain. Apply ice as needed for swelling. Raising your leg above heart level we will also help prevent swelling. A short course of pain medication has been sent to your pharmacy. Do not take this medication with alcohol. It may puts you at increased risk of falls and may cause drowsiness. These medications tend to be constipating, take them with a stool softener daily. Prescriptions: New hydrocodone-acetaminophen 5-325 mg tablet 1 tab PO Q8H PRN (Reason: pain) Qty: 8 0RF No Action atorvastatin [Lipitor] 10 MG tablet 20 mg PO HS Qty: 0 Multimineral/Multivitamin (THERAGRAN M ) 1 tab PO QDAY Qty: 0 melatonin 3 MG tablet 6 mg PO HS Qty: 0 calcium carbonate-vitamin D3 [Oyster Shell Calcium-Vit D3] 1,250 MG/200 IU tablet 500 mg PO [facility] Qty: 0 amiodarone 400 mg tablet 400 mg PO DAILY Qty: 30 0RF furosemide 20 mg tablet 20 mg PO DAILY Qty: 10 0RF losartan 50 mg tablet 25 mg PO DAILY Patient Comments: take 1 tablet by mouth once daily trospium 60 mg capsule,extended release 24hr 60 mg PO BID Patient Comments: take 1 capsule by mouth twice a day gabapentin 300 mg capsule 900 mg PO ONCE PM dimethyl fumarate 240 mg capsule,delayed release(DR/EC) 240 mg PO BID bupropion HCl 150 mg tablet extended release 24 hr 150 mg PO QAM bupropion HCl [Wellbutrin XL] 150 mg Tablet Extended Release 24 Hr 150 mg PO DAILY Qty: 30 0RF apixaban 5 mg tablet 5 mg PO BID Qty: 60 2RF metoprolol tartrate 50 mg Tablet 50 mg PO BID Qty: 60 2RF amiodarone 400 mg tablet 400 mg PO BID Qty: 60 1RF Rx Instructions: Take 400 mg BID for 1 week, then 400 mg daily thereafter until follow up with Dr Bundy of cardiology (within 2 weeks) potassium chloride 20 mEq tablet extended release 20 meq PO DAILY Qty: 10 0RF Referrals: Pooja Yusuf ARNP [Primary Care Provider] - Luis Cooney MD [Physician] - Stand Alone Forms: Patient Portal/API
[2024-04-26 21:00] VITALS: BP 157/70; PULSE 66; RESP 18; O2SAT 96
[2024-04-26] MEDS: OXYCODONE IR 5 MG TABLET PO (21:07)
[2024-04-26 21:30] VITALS: BP 147/67; PULSE 68; O2SAT 99
[2024-04-26] MEDS: HYDROCODONE/ACET 5/325 PREPACK 1 BOTTLE MISC (22:16)
== END 2024-04-26 22:10 | disposition home or self-care (01) ==
PROVIDERS: Emergency Provider Emergency Medicine; PCP Registered Nurse
DX: S92.354A Nondisplaced fracture of fifth metatarsal bone, right foot, initial encounter for closed fracture (principal); X50.1XXA Overexertion from prolonged static or awkward postures, initial encounter
CPT/HCPCS: 29515; 73610; 99283

== ENCOUNTER → 2024-05-02 13:40 | Outpatient (CLI) | payer MEDICARE, OTHER, SELFPAY ==
[2023-11-24 01:03] VITALS: BMI 29.5
--- NOTE | 2024-05-02 13:41 | DI.CT.S_ITS ---
PROCEDURE: CT LE RT WO CON INDICATIONS: Displaced fracture of fifth metatarsal bone, TECHNIQUE: Noncontrast 1-1.5 mm axial sections acquired from above the tibiotalar joint to the bottom of the calcaneus, with coronal and sagittal reformats. COMPARISON: [facility] [place], CR, XR FOOT 3+ VIEWS RIGHT, 04/27/2024, 16:03. FINDINGS: Image quality: Excellent. Bones: Transverse, nondisplaced fracture of the 5th metatarsal base, favoring acute. No associated callus formation. In addition, there is a nondisplaced fracture of the distal fibula (series 5, image 20), likely acute as well. No associated callus formation. The visualized distal tibia is intact. No dislocation in the ankle and foot. Mild subchondral cystic changes at the plantar aspect of the 1st metatarsal head, favoring degenerative. Small plantar calcaneal enthesophyte. Soft tissues: The flexor, peroneal, and extensor tendons are grossly unremarkable. Mild tendinosis of the distal Achilles tendon, without high-grade tear. Mild subcutaneous edema both the medial and lateral ankle. Marked subcutaneous edema of the lateral dorsal foot. Patient is imaged in a cast. IMPRESSION: Transverse, nondisplaced fracture of the 5th metatarsal base, favoring acute. Nondisplaced fracture of the distal fibula, likely acute as well. Dictated by: Ana Maria Valentin M.D. on 05/02/2024 at 20:17 Approved by: Ana Maria Valentin M.D. on 05/02/2024 at 20:25
== END ==
PROVIDERS: PCP Registered Nurse; Referring Provider Physician Assistant Medical; Visit Provider Physician Assistant Medical
DX: S92.354A Nondisplaced fracture of fifth metatarsal bone, right foot, initial encounter for closed fracture (principal); S82.831A Other fracture of upper and lower end of right fibula, initial encounter for closed fracture; X58.XXXA Exposure to other specified factors, initial encounter
CPT/HCPCS: 73700

== ENCOUNTER → 2024-07-08 09:24 | Outpatient (CLI) | payer MEDICARE, OTHER, SELFPAY ==
[2023-11-24 01:03] VITALS: BMI 29.5
--- NOTE | 2024-07-08 | DI.CT.S_ITS ---
PROCEDURE: CT ABDOMEN PELVIS W CON INDICATIONS: ABDOMINAL PAIN,CONSTIPATION UNEXPLAINED WT LOSS TECHNIQUE: After the administration of intravenous contrast, axial sections acquired from the lung bases to the pubic symphysis. Coronal and sagittal reformats were performed. For radiation dose reduction, the following was used: automated exposure control, adjustment of mA and/or kV according to patient size. COMPARISON: None. FINDINGS: Image quality: Diagnostic Lower chest: Basal atelectasis/scarring. Patulous distal esophagus. Trace hiatal hernia. Normal heart size Liver: No solid mass Gallbladder and biliary system: Unremarkable, mildly ectatic biliary system, likely senescent, no obstructing mass. Pancreas: No ductal dilation Spleen: Nonenlarged Adrenals: No discrete nodules Kidneys: Scattered cysts and subcentimeter lesions which are too small to characterize, probably also cysts. Vessels and lymph nodes: No abdominal aortic aneurysm. No pathologic lymph nodes by size criteria. Bowel and peritoneum: There is mild distension of the proximal duodenum and narrowing as it passes under the SMA. There is large fecal loading in the proximal and mid colon. No evidence of acute small bowel obstruction. There is suggestion of pelvic descent, within outpouching and possible lateral rectocele which exerts mass effect on the right puborectalis sling. No pathologic ascites Body wall: Unremarkable Pelvis: Bladder is unremarkable. Uterus is absent Bones: No acute or suspicious osseous finding. Degenerative changes are present. IMPRESSION: No acute small bowel obstruction. Large fecal loading in the mid and proximal colon. In the rectum, a lateral outpouching, possibly rectocele, with slight displacement on the right puborectalis sling is seen (3/33). 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 No significant distention of the stomach. There is a trace hiatal hernia. Other findings above. Dictated by: Everardo Sandoval M.D. on 07/08/2024 at 16:06 Approved by: Evearrdo Sandoval M.D. on 07/08/2024 at 16:13
== END ==
LOC: CT 09:26
PROVIDERS: PCP Registered Nurse; Referring Provider Registered Nurse; Visit Provider Registered Nurse
DX: K59.00 Constipation, unspecified (principal); R10.84 Generalized abdominal pain
CPT/HCPCS: 74177; Q9967

== ENCOUNTER 2024-08-06 09:20 | Emergency (ER) | payer MEDICARE, OTHER, SELFPAY ==
[2023-11-24 01:03] VITALS: BMI 29.5
[2024-08-06 09:31] VITALS: BP 134/104; PULSE 73; RESP 16; TEMP 36.6; O2SAT 94; BMI 22.8
--- NOTE | 2024-08-06 10:06 | PC.NURSE ---
VASCULAR SURGEON Note: pt reported to me that she had bilateral cataract removal surgery in 2020. DANK Sandoval was notified.
--- NOTE | 2024-08-06 10:56 | ED_ITS ---
HPI - Eye Problem General Chief complaint: Eye Problems Stated complaint: eye pain Time Seen by Provider: 08/06/24 10:55 History of Present Illness HPI Narrative: Patient is a 74-year-old female history of atrial fibrillation with ablation on Eliquis presenting today with left eye pain. He reports that for the last 3 days she has had increasing pain. She was seen by primary yesterday who started her on erythromycin ointment. However today she is increasing pain and redness. She has no changes in no loss of vision no current closing or blacking. She does have history of bilateral cataract surgery. She does not wear or use corrective lenses. She has not had any fever. Related Data Home Medications Medication Instructions Recorded Confirmed Multimineral/Multivitamin 1 tab PO QDAY ##0 05/20/13 11/24/23 (THERAGRAN M ) atorvastatin 10 mg tablet (Lipitor) 20 mg PO HS ##0 05/20/13 11/24/23 calcium carbonate 500 mg-vitamin 500 mg PO [facility] ##0 05/20/13 11/24/23 D3 5 mcg (200 unit) tablet (Oyster Shell Calcium-Vitamin D3) melatonin 3 mg tablet 6 mg PO HS ##0 05/20/13 11/24/23 losartan 50 mg tablet 25 mg PO DAILY 09/17/21 11/24/23 trospium 60 mg capsule,extended 60 mg PO BID 09/17/21 11/24/23 release 24 hr bupropion HCl 150 mg 24 hr tablet, 150 mg PO QAM depressive disorder 11/24/23 11/24/23 extended release dimethyl fumarate 240 mg 240 mg PO BID 11/24/23 11/24/23 capsule,delayed release gabapentin 300 mg capsule 900 mg PO ONCE PM 11/24/23 11/24/23 Previous Rx's Medication Instructions Recorded amiodarone 400 mg tablet 400 mg PO BID #60 tabs 11/24/23 apixaban 5 mg tablet 5 mg PO BID #60 tabs 11/24/23 bupropion HCl 150 mg 24 hr tablet, 150 mg PO DAILY #30 tabs 11/24/23 extended release (Wellbutrin XL) metoprolol tartrate 50 mg tablet 50 mg PO BID #60 tabs 11/24/23 amiodarone 400 mg tablet 400 mg PO DAILY #30 tabs 04/16/24 furosemide 20 mg tablet 20 mg PO DAILY #10 tabs 02/16/24 potassium chloride 20 mEq 20 meq PO DAILY #10 tabs 02/20/24 tablet,extended release hydrocodone 5 mg-acetaminophen 325 1 tab PO Q8H PRN pain #8 tabs 04/26/24 mg tablet amoxicillin 875 mg-potassium 1 tab PO BID #14 tabs 08/06/24 clavulanate 125 mg tablet Allergies Allergy/AdvReac Type Severity Reaction Status Date / Time codeine Allergy Severe Hives and Verified 03/01/24 10:41 nausea/vomiting Patient History Social History household members: spouse Smoking Status: Never smoker alcohol intake: current Smoking Status: Never smoker alcohol intake frequency: holidays/special occasions only Alcohol type: wine Substance Use Type: does not use Exam Initial Vital Signs Initial Vital Signs: Vital Signs Temperature 98 F 08/06/24 09:31 Pulse Rate 73 08/06/24 09:31 Respiratory Rate 16 08/06/24 09:31 Blood Pressure 134/104 H 08/06/24 09:31 Pulse Oximetry 94 08/06/24 09:31 Oxygen Delivery Method Room Air 08/06/24 09:31 GENERAL: Well-appearing, well-nourished and in no acute distress. EYE: Bilateral extraocular muscles intact pupils equal round and reactive Left eye lower lateral lid there appears to be a stye. She has some lower extremity erythema, no upper lid erythema or swelling Eye is stained without fluorescein uptake pressure is 15 mmHg Right eye within normal limits pressure 23 mmHg CARDIOVASCULAR: peripheral pulses in tact, cap refill <2 sec RESPIRATORY: No respiratory distress, speaks in full sentences without difficulty EXTREMITIES: Normal range of motion, no clubbing or edema. Neurovascularly intact NEUROLOGICAL: Cranial nerves II through XII grossly intact. Normal gait and speech. SKIN: Warm, dry, no petechiae, no rashes or lesions. Course Orders Ordered: Discontinued Medications Fluorescein Sodium (Fluorescein 1 Mg Strip) 1 mg EYE-LEFT NOW ONE Stop: 08/06/24 11:10 Last Admin: 08/06/24 11:11 Dose: 1 mg Documented By: EFRA Proparacaine HCl (Proparacaine 0.5% Ophth Kassie) 1 drops EYE-LEFT NOW ONE Stop: 08/06/24 11:10 Last Admin: 08/06/24 11:10 Dose: 1 drop Documented By: EFRA Vital Signs Vital signs: Vital Signs - 8 hr 08/06/24 11:19 Pulse Rate 65 Respiratory Rate 16 Blood Pressure 116/57 L Pulse Oximetry 96 Oxygen Delivery Method Room Air MDM - Eye Problem MDM Narrative Medical decision making narrative: Patient is 74-year-old female presenting today with left eye pain. Disappear on exam she has stye but does have some surrounding inferior erythema. She has no superior erythema or swelling. No concern at this time for orbital cellulitis possibly beginnings of facial cellulitis. Pressure in both eyes is within range no concern for acute angle glaucoma. Encourage patient warm compresses continue erythromycin ointment however will start her on Augmentin due to worsening erythema. Discharge Plan Departure Patient Disposition: Home Clinical Impression: Catia Instructions: Catia Activity Restrictions/Additional Instructions: *You have been diagnosed with left stye *What to do: At this time continue warm compresses as best you can. I suspect this will drain shortly. Monitor for worsening redness *Continue to take medications as directed Augmentin 875 mg twice a day for 7 days Continue erythromycin ointment as previously prescribed Tylenol 1000 mg every 6 hours if needed for pain *Follow up with your primary care provider in 2-3 days or call [phone] *Return to ER if you should have increasing redness swelling visual change or loss [or] any new, worsening or concerning symptoms Prescriptions: New amoxicillin-pot clavulanate 875-125 mg tablet 1 tab PO BID Qty: 14 0RF No Action atorvastatin [Lipitor] 10 MG tablet 20 mg PO HS Qty: 0 Multimineral/Multivitamin (THERAGRAN M ) 1 tab PO QDAY Qty: 0 melatonin 3 MG tablet 6 mg PO HS Qty: 0 calcium carbonate-vitamin D3 [Oyster Shell Calcium-Vit D3] 1,250 MG/200 IU tablet 500 mg PO [facility] Qty: 0 amiodarone 400 mg tablet 400 mg PO DAILY Qty: 30 0RF furosemide 20 mg tablet 20 mg PO DAILY Qty: 10 0RF hydrocodone-acetaminophen 5-325 mg tablet 1 tab PO Q8H PRN (Reason: pain) Qty: 8 0RF losartan 50 mg tablet 25 mg PO DAILY Patient Comments: take 1 tablet by mouth once daily trospium 60 mg capsule,extended release 24hr 60 mg PO BID Patient Comments: take 1 capsule by mouth twice a day gabapentin 300 mg capsule 900 mg PO ONCE PM dimethyl fumarate 240 mg capsule,delayed release(DR/EC) 240 mg PO BID bupropion HCl 150 mg tablet extended release 24 hr 150 mg PO QAM bupropion HCl [Wellbutrin XL] 150 mg Tablet Extended Release 24 Hr 150 mg PO DAILY Qty: 30 0RF apixaban 5 mg tablet 5 mg PO BID Qty: 60 2RF metoprolol tartrate 50 mg Tablet 50 mg PO BID Qty: 60 2RF amiodarone 400 mg tablet 400 mg PO BID Qty: 60 1RF Rx Instructions: Take 400 mg BID for 1 week, then 400 mg daily thereafter until follow up with Dr Bundy of cardiology (within 2 weeks) potassium chloride 20 mEq tablet extended release 20 meq PO DAILY Qty: 10 0RF Referrals: Pooja Yusuf ARNP [Primary Care Provider] - Stand Alone Forms: Patient Portal/API
[2024-08-06] MEDS: PROPARACAINE 0.5% OPHTH SOL 1 DROPS EYE-LEFT (11:10)
[2024-08-06] MEDS: FLUORESCEIN 1 MG STRIP EYE-LEFT (11:11)
[2024-08-06 11:19] VITALS: BP 116/57; PULSE 65; RESP 16; O2SAT 96
== END 2024-08-06 11:20 | disposition home or self-care (01) ==
PROVIDERS: Emergency Provider Emergency Medicine; PCP Registered Nurse
DX: H00.015 Hordeolum externum left lower eyelid (principal); Z79.01 Long term (current) use of anticoagulants
CPT/HCPCS: 99282

== ENCOUNTER → 2024-09-12 15:27 | Outpatient (CLI) | payer MEDICARE, OTHER, SELFPAY ==
[2023-11-24 01:03] VITALS: BMI 29.5
[2024-09-12 16:22] LABS: Hematocrit 31.4 % (36-46); Hemoglobin 10.3 g/dL (12.0-16.0); Mean Corpuscular HGB Conc 32.9 % (30-36); Mean Corpuscular Hemoglobin 31.6 PG (26-34); Platelet Count 368 X10^3/uL (150-400); Red Blood Cell Count 3.27 X10^6/uL (4.0-5.2); Red Cell Distribution Width 13.7 % (11.6-14.8); White Blood Cell Count 7.5 X10^3/uL (4.5-11.0)
[2024-09-12 16:45] LABS: BUN Creatinine Ratio 13.5 (6-22); Blood Urea Nitrogen 15 mg/dL (7-17); Calcium 9.4 mg/dL (8.4-10.2); Carbon Dioxide 26 mmol/L (22-32); Chloride 101 mmol/L (98-107); Estimated Glomerular Filt Rate 52 mL/min (>60); Glucose 93 mg/dL (80-110); HEMOLYSIS < 15 (0-50); Potassium 4.2 mmol/L (3.4-5.1); Sodium 132 mmol/L (137-145)
[2024-09-12 16:54] LABS: NT-proBNP (BNP-Adult 18+) 1380 pg/mL (<125)
[2024-09-12 18:19] LABS: Free T4, Direct Thyroxine 0.82 ng/dL (0.78-2.19)
== END ==
PROVIDERS: PCP Registered Nurse; Referring Provider Nurse Practitioner Family; Visit Provider Nurse Practitioner Family
DX: I10 Essential (primary) hypertension (principal); R06.02 Shortness of breath; I48.19 Other persistent atrial fibrillation
CPT/HCPCS: 36415; 80048; 83880; 84439; 84443; 85027

== ENCOUNTER → 2024-11-29 09:40 | Outpatient (CLI) | payer MEDICARE, OTHER, SELFPAY ==
[2023-11-24 01:03] VITALS: BMI 29.5
--- NOTE | 2024-11-29 09:42 | DI.MG.S_ITS ---
BILATERAL DIGITAL SCREENING MAMMOGRAM 3D/2D WITH CAD: 11/29/2024 CLINICAL: Routine screening. Family history of breast cancer. Comparison is made to exams dated: 11/16/2023 mammogram, 11/22/2020 mammogram, 11/08/2019 mammogram, and 10/13/2018 mammogram - [facility]. There are scattered areas of fibroglandular density (category b / 25%-50% glandular tissue). Current study was also evaluated with a Computer Aided Detection (CAD) system. No significant masses, calcifications, or other findings are seen in either breast. There has been no significant interval change. IMPRESSION: NEGATIVE There is no mammographic evidence of malignancy. A 1 year screening mammogram is recommended. Based on the Tyrer Cuzick model (a risk assessment model) the patient's lifetime risk is 3.5% and her 10 year risk is 3.1%. According to the ACR, ACS, and NCCN guidelines, an annual breast MRI exam along with mammogram is recommended if the patient's lifetime risk is 20% or greater. This exam was interpreted at Station ID: [id number]. NOTE: For mammograms, a report in lay terms will be sent to the patient. Approximately 15% of breast malignancies will not be visualized mammographically. In the management of a palpable breast mass, a negative mammogram must not discourage biopsy of a clinically suspicious lesion. Electronically Signed By: Leonel aguilera/jose:11/29/2024 15:28:36 letter sent: Normal Exam ACR BI-RADS Category 1: Negative
== END ==
PROVIDERS: PCP Registered Nurse; Referring Provider Registered Nurse; Visit Provider Registered Nurse
DX: Z12.31 Encounter for screening mammogram for malignant neoplasm of breast (principal); Z80.3 Family history of malignant neoplasm of breast
CPT/HCPCS: 77063; 77067